=== PATIENT | female | born 1965 | race Caucasian/White ===

== ENCOUNTER → 2018-07-16 | Outpatient (CLI) | payer MEDICAID ==
--- NOTE | 2018-07-16 12:42 | Diagnostic Imaging Report ---
CLINICAL INDICATION: Patient fell out of bed last night. Patient has low back pain. EXAM: X-ray of the lumbar spine, three views. COMPARISON: None. FINDINGS: There is mild concave deformity of the upper endplate of the L2 vertebra with no cortical disruption seen. This appearance may be chronic. There is likely physiological wedging of the L1 vertebra. There is mildly hypertrophic spurs involving the thoracolumbar spine region. Intervertebral disc heights well maintained. Sacroiliac joints are unremarkable. Surgical clips are seen overlying the right upper quadrant which could be related to cholecystectomy changes. There is tubing seen overlying the abdomen area which may represent shunt tubing. IMPRESSION: There is a mild concave deformity of the upper endplate of the L2 vertebra, with no cortical disruption seen, which may be chronic given its appearance. If there is continued concern for lumbar spine fracture, CT scan would better evaluate. Dictated by: Dictated on workstation # [id number]
== END ==
LOC: RAD FS 12:21
PROVIDERS: ATTEND Nurse Practitioner Family
DX: M43.8X6 Other specified deforming dorsopathies, lumbar region (principal); W06.XXXA Fall from bed, initial encounter
CPT/HCPCS: 72100

== ENCOUNTER → 2018-12-02 | Outpatient (CLI) | payer MEDICAID ==
[~2018-12-02] MED LIST: GADOBUTROL 7.5 MMOL/7.5 ML (GADAVIST) VIAL IV ONE
[2018-12-02 08:23] LABS: BUN/CREATININE RATIO 12; CREATININE SERUM 0.75 MG/DL (0.60-1.30); GFR ESTIMATED > 60
--- NOTE | 2018-12-02 09:45 | Diagnostic Imaging Report ---
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 Screening for MRI. EXAM: X-ray of the skull, Stevens and lateral views of the orbits. COMPARISON: None. FINDINGS AND IMPRESSION: 1. There is no evidence of a radiodense foreign object on this exam. 2. There is dental amalgam and crowns. There are two ventricular shunts overlying the head. A jv hole metallic cranioplasty plate is seen overlying the right frontal region. 3. There is mild tortuosity of the nasal septum. The visualized paranasal sinuses are grossly unremarkable. 4. The results of this report were discussed with the cardiac technologist at the time of this exam. Dictated by: Dictated on workstation # [id number]
--- NOTE | 2018-12-02 13:12 | Diagnostic Imaging Report ---
EXAM: MRI BRAIN IAC W/OW CONTRAST INDICATION: Right-sided hearing loss. Multiple prior "brain surgeries." COMPARISON: None. FINDINGS: Right frontal FOWL BLOOD TESTER shunt tip crosses the midline and terminates in the region of the left basal ganglia. Left parietal FOWL BLOOD TESTER shunt tip terminates in the region of the atrium of the left lateral ventricle. The ventricles are slitlike in morphology. There is an abandoned shunt tract in the right parietal lobe. Bilateral craniotomies. There is subacute subdural hemorrhage overlying both cerebral convexities, left greater than right. These measure up to 0.5 cm in thickness overlying the left parietal lobe and 0.4 cm in thickness overlying the right posterior frontal lobe. There is diffuse thick pachymeningeal enhancement without a focal nodular or masslike focus. Moderate nonspecific T2 hyperintensities about the periventricular white matter. No other abnormal intracranial signal or enhancement. No restricted water diffusion. There is some hemosiderin deposition associated with the subdural hemorrhages. There is mild sagging of the brainstem and cerebellar tonsils. There is otherwise normal morphology at the major midline structures, sella, posterior fossa. Dedicated sequences to the level of the internal auditory canals demonstrate no normal morphology with no suspicious mass or enhancement. There is minimal mucosal thickening in the left frontal, ethmoid and maxillary sinus. Mastoids are clear. Normal bone marrow signal. IMPRESSION: 1. Constellation of findings, including those indicating CSF hypotension, are likely due to over shunting. There are two ventriculoperitoneal shunts in place as above. 2. Bilateral subdural hemorrhages appear subacute and may also be due to over shunting. Findings discussed with Dr. Emiliano Swanson at 01:03 p.m. on 12/02/2018. Dictated by: Dictated on workstation # [id number]
== END ==
LOC: RAD 07:50
PROVIDERS: ATTEND Otolaryngology Otolaryngology/Facial Plastic Surgery
DX: H91.8X1 Other specified hearing loss, right ear (principal); I62.00 Nontraumatic subdural hemorrhage, unspecified; J34.89 Other specified disorders of nose and nasal sinuses; Z98.890 Other specified postprocedural states; Z98.2 Presence of cerebrospinal fluid drainage device
CPT/HCPCS: 36415; 70553; 82565; 84520

== ENCOUNTER 2019-02-02 14:34 | Emergency (ER) | payer MEDICAID ==
[~2019-02-02] VITALS: Ht 175 cm; Wt 71.8 kg
--- NOTE | 2019-02-02 16:02 | Diagnostic Imaging Report ---
INDICATION: Fall with injury to head and face. TECHNIQUE: Multiple contiguous axial images were obtained through the head and facial bones without the use of intravenous contrast. Auto Exposure Controls were utilized during the CT exam to meet ALARA standards for radiation dose reduction. COMPARISON: There are no prior CTs for comparison. CT brain findings: There were no extra-axial fluid collections. No acute intracranial hemorrhage. No mass effect or midline shift. There are bilateral shunt catheters in place, one has its tip in the left lateral ventricle, the other crosses the midline with tip passing through the frontal horns. The ventricles are nondilated. There are some chronic changes in the deep white matter with no definite acute process. Calvarial windows demonstrate evidence of previous craniotomies on both sides as well as extensive dural calcifications which are chronic. There is no acute fracture. CT maxillofacial findings: No definite acute fracture or acute bony abnormality is seen. There is a fluid level in the left maxillary sinus. IMPRESSION: 1. CT brain shows chronic changes as described above with no acute intracranial abnormality or calvarial fracture. 2. CT maxillofacial demonstrates no acute fracture or acute bony abnormality. There is a fluid level noted in the left maxillary sinus. Dictated by: Dictated on workstation # [id number]
--- NOTE | 2019-02-02 16:12 | ED Fall/Injury ---
General Chief Complaint: Trauma-Non Activation Stated Complaint: FALL; HEAD INJ Source: patient, family History of Present Illness Date Seen by Provider: Feb 02, 2019 Time Seen by Provider: 16:41 Initial Comments 53-year-old female presenting with complaints of right-sided head and jaw pain after having a fall yesterday. She had gotten tripped up by the dog's leash and fall onto her knees. She denies hitting her head or losing consciousness but does relate that she had taken quite a spill and gotten miesha around. She denies having any vomiting but stated that she had some nausea earlier. She denies any change in her vision. She has no drainage from around any of her teeth. She has not been running any fever or chills. She had tried Tylenol with little to no relief of her symptoms. Allergies and Home Medications Allergies Coded Allergies: No Known Drug Allergies (Unverified , 12/02/18) Home Medications Hydrocodone Bit/Acetaminophen 1 Tab Tab, 1 EACH PO Q6H PRN for PAIN-SEVERE (8- 10) Prescribed by: DIANA ESPINOSA on 02/02/19 8640 Patient Home Medication List Home Medication List Reviewed: Yes Review of Systems Review of Systems Constitutional: No chills, No fever Eyes: Denies Vision Changes Ears, Nose, Mouth, Throat: see HPI; denies ear discharge, denies nose discharge, denies epistaxis, denies loose teeth Respiratory: no symptoms reported Cardiovascular: no symptoms reported Gastrointestinal: nausea; No vomiting Genitourinary: no symptoms reported Musculoskeletal: joint pain (bilateral knee pain since the fall) Skin: no symptoms reported Psychiatric/Neurological: Headache Past Crqruey-Ybihqk-Lzpdui Hx Past Med/Social Hx: Reviewed Nursing Past Med/Soc Hx Patient Social History Recent Foreign Travel: No Physical Exam Vital Signs Vital Signs - First Documented 02/02/19 14:50 Temp 36.5 Pulse 60 Resp 16 B/P (MAP) 109/85 (93) Pulse Ox 98 Capillary Refill : Height, Weight, BMI Height: '" Weight: lbs. oz. kg; BMI Method: General Appearance: WD/WN, no apparent distress HEENT: PERRL/EOMI, pharynx normal Neck: supple, normal inspection Cardiovascular: normal peripheral pulses, regular rate, rhythm Respiratory: chest non-tender, lungs clear, normal breath sounds Neurologic/Psychiatric: alert, normal mood/affect, oriented x 3 Skin: normal color, warm/dry [place] Coma Score Best Eye Response: (4) Open Spontaneously Best Verbal Response: (5) Oriented Best Motor Response: (6) Obeys Commands Giuseppe Total: 15 Progress/Results/Core Measures Results/Orders My Orders Orders - DIANA ESPINOSA MD Ct Head/Maxillofacial Wo (02/02/19 15:24) Vital Signs/I&O 02/02/19 02/02/19 14:50 17:25 Temp 36.5 Pulse 60 54 Resp 16 16 B/P (MAP) 109/85 (93) 118/73 Pulse Ox 98 97 Progress Progress Note : Progress Note CT of her head and face does not demonstrate any acute intracranial hemorrhage or fractures. The jaw and mandible appear to be intact. Counseled patient and family about the results and advised that she could still follow up with dentist in case there was some issue with her teeth still. Will prescribe a few hydrocodone for severe pain and counseled to follow up with her primary and dentist for continued concerns. Diagnostic Imaging Diagonstic Imaging: CT Plain Films/CT/US/NM/MRI: head (and face) Comments NAME: SUSHMA DELAROSA [facility] REC#: [id number] PT STATUS: REG ER : 1965 PHYSICIAN: DIANA ESPINOSA MD ADMIT DATE: 02/02/19/ER FS Draft POSDate of Exam:02/02/19 CT HEAD/MAXILLOFACIAL WO INDICATION: Fall with injury to head and face. TECHNIQUE: Multiple contiguous axial images were obtained through the head and facial bones without the use of intravenous contrast. Auto Exposure Controls were utilized during the CT exam to meet ALARA standards for radiation dose reduction. COMPARISON: There are no prior CTs for comparison. CT brain findings: There were no extra-axial fluid collections. No acute intracranial hemorrhage. No mass effect or midline shift. There are bilateral shunt catheters in place, one has its tip in the left lateral ventricle, the other crosses the midline with tip passing through the frontal horns. The ventricles are nondilated. There are some chronic changes in the deep white matter with no definite acute process. Calvarial windows demonstrate evidence of previous craniotomies on both sides as well as extensive dural calcifications which are chronic. There is no acute fracture. CT maxillofacial findings: No definite acute fracture or acute bony abnormality is seen. There is a fluid level in the left maxillary sinus. IMPRESSION: 1. CT brain shows chronic changes as described above with no acute intracranial abnormality or calvarial fracture. 2. CT maxillofacial demonstrates no acute fracture or acute bony abnormality. There is a fluid level noted in the left maxillary sinus. Dictated on workstation # [id number] Dict: 02/02/19 1556 Trans: 02/02/19 1602 [id number] Interpreted by: YUDELKA GOODSON MD Electronically signed by: Departure Impression Primary Impression: Jaw pain Additional Impressions: Right-sided headache Fall at home Qualified Codes: W19.XXXA - Unspecified fall, initial encounter; Y92.009 - Unspecified place in unspecified non-institutional (private) residence as the place of occurrence of the external cause Disposition: 01 HOME, SELF-CARE Condition: Stable Departure-Patient Inst. Decision time for Depature: 17:16 Referrals: RYANNE ADAMS MD (PCP/Family) Primary Care Physician Patient Instructions: Tension Headache (DC) Add. Discharge Instructions: Try alternating ice and heat to your face to help with the pain. Check back with your dentist to see if there is any dental source of the pain. Try the hydrocodone for severe pain and check with your regular provider if the pain continues or is not improving within the next few days All discharge instructions reviewed with patient and/or family. Voiced understanding. Scripts Hydrocodone Bit/Acetaminophen (Hydrocodone/Acetaminophen 5/325mg Tablet) 1 Tab Tab 1 EACH PO Q6H PRN for PAIN-SEVERE (8-10) MDD 10 for 3 Days, #12 TAB 0 Refills Prov: DIANA ESPINOSA MD 02/02/19 DIANA ESPINOSA MD Feb 02, 2019 16:12 POS
[2019-02-02] MEDS ORDERED: ACHD5005 PO (17:17)
[2019-02-02 17:25] VITALS: BP 118/73
== END 2019-02-02 17:30 | disposition home or self-care (01) ==
LOC: EDUNIT# 14:34 → ER FS 14:35
DX: R68.84 Jaw pain (principal); R51 Headache; R40.2142 Coma scale, eyes open, spontaneous, at arrival to emergency department; R40.2252 Coma scale, best verbal response, oriented, at arrival to emergency department; R40.2362 Coma scale, best motor response, obeys commands, at arrival to emergency department; W01.0XXA Fall on same level from slipping, tripping and stumbling without subsequent striking against object, initial encounter
CPT/HCPCS: 70450; 70486

== ENCOUNTER 2019-03-12 16:33 | Emergency (ER) | payer MEDICAID ==
[~2019-03-12 16:33] MED LIST changes: +ACHD5005 PO; -GADOBUTROL 7.5 MMOL/7.5 ML (GADAVIST) VIAL IV ONE
[2019-03-12] MEDS ORDERED: diphenhydrAMINE 50 MG/ML INJ (BENADRYL) IVP ONE (17:15)
[2019-03-12] MEDS ORDERED: NS IV 1000 ML 1,000 ML IV SCH (17:15)
[2019-03-12] MEDS ORDERED: PROMETHAZINE INJ 25 MG/ML (PHENERGAN) AMP IVP ONE (17:15)
--- NOTE | 2019-03-12 17:20 | ED GI ---
General Stated Complaint: VOMITING & DIARRHEA Source of Information: Patient, Family Exam Limitations: No Limitations (ARIADNE GUO MD) History of Present Illness Date Seen by Provider: Mar 12, 2019 Time Seen by Provider: 17:15 Initial Comments This 53-year-old white female presents with nausea vomiting and diarrhea that began earlier today. The patient denies hematemesis or black or tarry stools. Patient has diffuse abdominal pain from her repeated vomiting. Patient denies associated fever or chills. She denies other family members with a similar illness. She denies change in her medications. The patient took Zofran without improvement in her nausea and vomiting. (ARIADNE GUO MD) Allergies and Home Medications Allergies Coded Allergies: No Known Drug Allergies (Unverified , 12/02/18) Home Medications Hydrocodone Bit/Acetaminophen 1 Tab Tab, 1 EACH PO Q6H PRN for PAIN-SEVERE (8- 10) Prescribed by: DIANA ESPINOSA on 02/02/19 1717 Metoclopramide HCl 5 Mg Tablet, 5 MG PO Q6H PRN for NAUSEA/VOMITING Prescribed by: DIANA ESPINOSA on 03/12/19 1936 Patient Home Medication List Home Medication List Reviewed: Yes (ARIADNE GUO MD) Home Medication List Reviewed: Yes (DIANA ESPINOSA MD) Review of Systems Review of Systems Constitutional: No chills, No fever EENTM: No Symptoms Reported Respiratory: Denies Cough Cardiovascular: Denies Chest Pain Gastrointestinal: See HPI, Abdominal Pain (after repeated vomiting), Diarrhea, Nausea; Denies Rectal Bleeding; Vomiting Genitourinary: No Symptoms Reported Musculoskeletal: no symptoms reported; No back pain Skin: no symptoms reported; No rash Psychiatric/Neurological: No Symptoms Reported Endocrine: No Symptoms Reported Hematologic/Lymphatic: No Symptoms Reported (ARIADNE GUO MD) Past Orzlbsb-Aswzrg-Irtyea Hx Past Med/Social Hx: Reviewed Nursing Past Med/Soc Hx (ARIADNE GUO MD) Patient Social History Type Used: Cigarettes 2nd Hand Smoke Exposure: Yes Recent Foreign Travel: No Recent Hopitalizations: No (ARIADNE GUO MD) Seasonal Allergies Seasonal Allergies: No (ARIADNE GUO MD) Past Medical History Surgeries: Yes (brain shunt) Appendectomy, Gallbladder, Hysterectomy Respiratory: No Cardiac: No Neurological: No Genitourinary: No Gastrointestinal: No Musculoskeletal: No Endocrine: No HEENT: No Cancer: No Psychosocial: No Blood Disorders: No (ARIADNE GUO MD) Physical Exam Vital Signs Vital Signs - First Documented 03/12/19 16:47 Temp 36.3 Pulse 79 Resp 18 B/P (MAP) 102/71 (81) Pulse Ox 96 O2 Delivery Room Air (DIANA ESPINOSA MD) Vital Signs Capillary Refill : (ARIADNE GUO MD) Height/Weight/BMI Height: '" Weight: lbs. oz. kg; 23.00 BMI Method: General Appearance: WD/WN, moderate distress HEENT: normal ENT inspection Neck: normal inspection Respiratory: lungs clear Cardiovascular: regular rate, rhythm Gastrointestinal: abnormal bowel sounds (hypoactive), tenderness (mild diffuse tenderness) Extremities: normal range of motion, non-tender, normal inspection Back: normal inspection Neurologic/Psychiatric: no motor/sensory deficits, alert, normal mood/affect Skin: normal color, warm/dry (ARIADNE GUO MD) Progress/Results/Core Measures Results/Orders Lab Results Laboratory Tests Test 03/12/19 17:40 Range/Units White Blood Count 23.5 H 4.3-11.0 10^3/uL Red Blood Count 4.60 4.35-5.85 10^6/uL Hemoglobin 14.8 11.5-16.0 G/DL Hematocrit 43 35-52 % Mean Corpuscular Volume 94 80-99 FL Mean Corpuscular Hemoglobin 32 25-34 PG Mean Corpuscular Hemoglobin Concent 34 32-36 G/DL Red Cell Distribution Width 12.6 10.0-14.5 % Platelet Count 391 130-400 10^3/uL Mean Platelet Volume 9.5 7.4-10.4 FL Neutrophils (%) (Auto) 86 H 42-75 % Lymphocytes (%) (Auto) 8 L 12-44 % Monocytes (%) (Auto) 4 0-12 % Eosinophils (%) (Auto) 1 0-10 % Basophils (%) (Auto) 0 0-10 % Neutrophils # (Auto) 20.2 H 1.8-7.8 X 10^3 Lymphocytes # (Auto) 2.0 1.0-4.0 X 10^3 Monocytes # (Auto) 1.0 0.0-1.0 X 10^3 Eosinophils # (Auto) 0.2 0.0-0.3 10^3/uL Basophils # (Auto) 0.1 0.0-0.1 10^3/uL Neutrophils % (Manual) 79 % Lymphocytes % (Manual) 13 % Monocytes % (Manual) 2 % Eosinophils % (Manual) 0 % Basophils % (Manual) 0 % Band Neutrophils 6 % Blood Morphology Comment NORMAL Sodium Level 139 135-145 MMOL/L Potassium Level 3.7 3.6-5.0 MMOL/L Chloride Level 102 98-107 MMOL/L Carbon Dioxide Level 21 21-32 MMOL/L Anion Gap 16 H 5-14 MMOL/L Blood Urea Nitrogen 11 7-18 MG/DL Creatinine 0.75 0.60-1.30 MG/DL Estimat Glomerular Filtration Rate > 60 BUN/Creatinine Ratio 15 Glucose Level 130 H 70-105 MG/DL Calcium Level 9.6 8.5-10.1 MG/DL Corrected Calcium 8.5-10.1 MG/DL Total Bilirubin 0.5 0.1-1.0 MG/DL Aspartate Amino Transf (AST/SGOT) 25 5-34 U/L Alanine Aminotransferase (ALT/SGPT) 27 0-55 U/L Alkaline Phosphatase 175 H 40-136 U/L Total Protein 8.2 6.4-8.2 GM/DL Albumin 4.9 H 3.2-4.5 GM/DL Lipase 25 8-78 U/L (DIANA ESPINOSA MD) My Orders Orders - DIANA ESPINOSA MD Iohexol Injection (Omnipaque 350 Mg/Ml 1 (03/12/19 18:30) Received Contrast (Hold Metformin- Contr (03/12/19 18:30) Sodium Chloride Flush (Catheter Flush Sy (03/12/19 18:30) Ns (Ivpb) (Sodium Chloride 0.9% Ivpb Bag (03/12/19 18:30) Ct Abdomen/Pelvis W (03/12/19 18:26) Rx-Metoclopramide Tab (Rx-Reglan Tab) (03/12/19 19:30) (DIANA ESPINOSA MD) Medications Given in ED Current Medications Medications Dose Ordered Sig/Suhas Route Start Time Stop Time Status Last Admin Dose Admin Diphenhydramine HCl 25 mg ONCE ONCE IVP 03/12/19 17:15 03/12/19 17:16 DC 03/12/19 17:50 25 MG Iohexol 100 ml ONCE ONCE IV 03/12/19 18:30 03/12/19 18:31 DC 03/12/19 18:45 100 ML Promethazine HCl 25 mg ONCE ONCE IVP 03/12/19 17:15 03/12/19 17:16 DC 03/12/19 17:50 25 MG Sodium Chloride 10 ml NEEDED PRN IV 03/12/19 18:30 03/12/19 19:47 DC 03/12/19 18:45 10 ML Sodium Chloride 100 ml ONCE ONCE IV 03/12/19 18:30 03/12/19 18:31 DC 03/12/19 18:45 100 ML (DIANA ESPINOSA MD) Vital Signs/I&O 03/12/19 03/12/19 16:47 19:46 Temp 36.3 Pulse 79 87 Resp 18 18 B/P (MAP) 102/71 (81) 159/87 Pulse Ox 96 99 O2 Delivery Room Air Room Air (DIANA ESPINOSA MD) Progress Progress Note : Time: 17:[address] Espinosa accepted the patient at change of shifts. (ARIADNE GUO MD) Progress Note #1: Time: 18:32 Progress Note I assumed care of the patient from Dr. Guo at shift change. her WBC was elevated with a left shift in her differential. Chemistry did not show any acute significant abnormality to account for her symptoms. On my repeat exam of the patient she was feeling better and had no further vomiting after treatment in the ED. Abdominal cramping improved with treatment as well. She did stop abdominal pain that was diffuse with palpation. Will perform a CT scan with IV contrast to evaluate for possible developing bowel obstruction or colitis or diverticulitis that might be contributing to her elevated white count and acute onset of symptoms. Progress Note #2: Time: 19:[address] scan shows findings of inflammation of the stomach and first part of the small intestine and duodenum. These findings would be consistent with some gastroenteritis. There was no free fluid or signs of diverticulitis or colitis. Patient was continuing to feel better and was tolerating by mouth fluids here in the ED. Counseled that provided she was tolerating oral fluids and not having worsening symptoms that I would discharge her to home with some nausea medicine and treat her for viral gastroenteritis with liquid diet for at least 24 hours and then slowly advance diet as she tolerates it. Counseled to check back with the clinic or return for worsening symptoms. Initially a lactic acid had been ordered and a urinalysis but as her CT scan was not showing any indication of ischemic bowel and she is not having any UTI symptoms those tests were canceled. Since she was not having improvement with Zofran prior to arriving in the ED Will discharge with a few Reglan tablets. Progress Note #3: Progress Note tolerating po in ED without worsening symptoms. discharge as planned above (DIANA ESPINOSA MD) Diagnostic Imaging Diagonstic Imaging: CT Plain Films/CT/US/NM/MRI: abdomen, pelvis Comments NAME: SUSHMA DELAROSA [facility] REC#: [id number] PT STATUS: REG ER : 1965 PHYSICIAN: DIANA ESPINOSA MD ADMIT DATE: 03/12/19/ER FS Draft Date of Exam:03/12/19 CT ABDOMEN/PELVIS W CT ABDOMEN/PELVIS W PROCEDURE: CT abdomen and pelvis with contrast. TECHNIQUE: Multiple contiguous axial images were obtained through the abdomen and pelvis after administration of intravenous contrast. INDICATION: Acute onset emesis and diarrhea with leukocytosis. COMPARISON: None. FINDINGS: No focal hepatic or splenic lesion is identified. Note is made of peritoneal catheter extending from the visualized left anterior chest wall. There appears to be mural thickening in the stomach and duodenum, which may reflect gastroenteritis. No splenic or adrenal gland abnormality is identified. There is excretion of contrast from both kidneys without other evidence of renal abnormality. No free fluid is seen within the abdomen or pelvis. Partially opacified urinary bladder is unremarkable. IMPRESSION: Mural thickening at the level of stomach and duodenum possibly reflecting gastroenteritis. Otherwise, no acute abnormality is seen within the abdomen or pelvis. Dictated on workstation # [id number] Dict: 03/12/19 1856 Trans: 03/12/19 [id number] Interpreted by: RIC RAMON MD Electronically signed by: Reviewed: Reviewed by Me (and radiologist report) (DIANA ESPINOSA MD) Departure Impression Primary Impression: Nausea vomiting and diarrhea Additional Impression: Abdominal cramping Disposition: 01 HOME, SELF-CARE Condition: Stable Departure-Patient Inst. Decision time for Depature: 19:35 (DIANA ESPINOSA MD) Referrals: RYANNE ADAMS MD (PCP/Family) Primary Care Physician Patient Instructions: Diarrhea in Adolescents and Adults, Full Liquid Diet, Nausea and Vomiting, Adult (DC), Viral Gastroenteritis, Adult (DC) Add. Discharge Instructions: Follow a liquid diet for the next 24 hours. Then you may slowly advance your diet as you tolerate it Use the nausea medicine to help keep your stomach settled so that you can keep sipping on fluids and stay hydrated. Check with the clinic for continued problems/concerns or return/seek medical care for worsening symptoms or if not improving in next few days Scripts Metoclopramide HCl (Metoclopramide HCl) 5 Mg Tablet 5 MG PO Q6H PRN for NAUSEA/VOMITING for 3 Days, #12 TAB 0 Refills Prov: DIANA ESPINOSA MD 03/12/19 ARIADNE GUO MD Mar 12, 2019 17:20 DIANA ESPINOSA MD Mar 12, 2019 18:46
[2019-03-12 17:49] LABS: BASOPHILS # (AUTO) 0.1 10^3/uL (0.0-0.1); BASOPHILS % (AUTO) 0 % (0-10); EOSINOPHILS # (AUTO) 0.2 10^3/uL (0.0-0.3); EOSINOPHILS % (AUTO) 1 % (0-10); HEMATOCRIT 43 % (35-52); HEMOGLOBIN 14.8 G/DL (11.5-16.0); LYMPHOCYTES % (AUTO) 8 % (12-44); MEAN CORPUSCULAR HEMOGLOBIN 32 PG (25-34); MEAN CORPUSCULAR HGB CONC 34 G/DL (32-36); MEAN CORPUSCULAR VOLUME 94 FL (80-99); MEAN PLATELET VOLUME 9.5 FL (7.4-10.4); MONOCYTES % (AUTO) 4 % (0-12); NEUTROPHILS # (AUTO) 20.2 X 10^3 (1.8-7.8); NEUTROPHILS % (AUTO) 86 % (42-75); PLATELET COUNT 391 10^3/uL (130-400); RED CELL DISTRIBUTION WIDTH 12.6 % (10.0-14.5); WHITE BLOOD COUNT 23.5 10^3/uL (4.3-11.0)
[2019-03-12 18:05] LABS: BAND NEUTROPHILS 6 %; BASOPHILS % (MANUAL) 0 %; EOSINOPHILS % (MANUAL) 0 %; LYMPHOCYTES % (MANUAL) 13 %; MONOCYTES % (MANUAL) 2 %; NEUTROPHILS % (MANUAL) 79 %; RBC MORPH NORMAL
[2019-03-12 18:06] LABS: ALANINE AMINOTRANSFERASE 27 U/L (0-55); ALBUMIN 4.9 GM/DL (3.2-4.5); ALKALINE PHOSPHATASE 175 U/L (40-136); BILIRUBIN,TOTAL 0.5 MG/DL (0.1-1.0); BUN/CREATININE RATIO 15; CALCIUM 9.6 MG/DL (8.5-10.1); CARBON DIOXIDE 21 MMOL/L (21-32); CHLORIDE 102 MMOL/L (98-107); CREATININE SERUM 0.75 MG/DL (0.60-1.30); GFR ESTIMATED > 60; GLUCOSE 130 MG/DL (70-105); LIPASE 25 U/L (8-78); POTASSIUM 3.7 MMOL/L (3.6-5.0); SODIUM 139 MMOL/L (135-145); TOTAL PROTEIN 8.2 GM/DL (6.4-8.2)
[2019-03-12] MEDS ORDERED: NS 100 ML (IVPB) BAG IV ONE (18:30)
[2019-03-12] MEDS ORDERED: IOHEXOL 350 MG/ML 100 ML (OMNIPAQUE 350) VIAL IV ONE (18:30)
[2019-03-12] MEDS ORDERED: HOLD METFORMIN - RECEIVED CONTRAST 20 ML VIAL IV SCH (18:30)
[2019-03-12] MEDS ORDERED: CATHETER FLUSH 10 ML SYR IV PRN (18:30)
[2019-03-12] MEDS ORDERED: NS IV 1000 ML 1,000 ML IV STA (19:02)
--- NOTE | 2019-03-12 19:02 | Diagnostic Imaging Report ---
CT ABDOMEN/PELVIS W PROCEDURE: CT abdomen and pelvis with contrast. TECHNIQUE: Multiple contiguous axial images were obtained through the abdomen and pelvis after administration of intravenous contrast. INDICATION: Acute onset emesis and diarrhea with leukocytosis. COMPARISON: None. FINDINGS: No focal hepatic or splenic lesion is identified. Note is made of peritoneal catheter extending from the visualized left anterior chest wall. There appears to be mural thickening in the stomach and duodenum, which may reflect gastroenteritis. No splenic or adrenal gland abnormality is identified. There is excretion of contrast from both kidneys without other evidence of renal abnormality. No free fluid is seen within the abdomen or pelvis. Partially opacified urinary bladder is unremarkable. IMPRESSION: Mural thickening at the level of stomach and duodenum possibly reflecting gastroenteritis. Otherwise, no acute abnormality is seen within the abdomen or pelvis. Dictated by: Dictated on workstation # [id number]
[2019-03-12] MEDS ORDERED: RX-METOCLOPRAMIDE 5 MG (REGLAN) TAB PPK#8 PO PRN (19:30)
[2019-03-12] MEDS ORDERED: METO5TAB2 PO (19:36)
[2019-03-12 19:46] VITALS: BP 159/87
== END 2019-03-12 19:46 | disposition home or self-care (01) ==
LOC: EDUNIT# 16:33 → ER FS 16:35
DX: R11.2 Nausea with vomiting, unspecified (principal); R19.7 Diarrhea, unspecified; R10.9 Unspecified abdominal pain; Z77.22 Contact with and (suspected) exposure to environmental tobacco smoke (acute) (chronic); Z90.49 Acquired absence of other specified parts of digestive tract; Z90.710 Acquired absence of both cervix and uterus
CPT/HCPCS: 36415; 74177; 80053; 83690; 85007; 85027; 96374; 96375

== ENCOUNTER 2019-08-05 17:02 | Emergency (ER) | payer MEDICAID ==
[~2019-08-05] VITALS: Ht 172.7 cm; Wt 66.1 kg
[~2019-08-05 17:02] MED LIST changes: +METO5TAB2 PO
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
[2019-08-05] MEDS ORDERED: HYDROcodone/APAP 5 MG/325 MG (LORTAB) TAB PO ONE (17:15)
[2019-08-05] MEDS: IBUPROFEN 600 MG (MOTRIN) TAB PO ONE ×2 (18:04→18:05)
--- NOTE | 2019-08-05 18:05 | NUR ---
Pt refuses Ibuprofen that was scanned to administer with Hydrocodone. Pt states, "I am on a med that you can not use Ibufrofen family with it." Pt states she is on Celebrex then denies knowing that it is for pain/arthritis.
[2019-08-05 19:31] VITALS: BP 136/93
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
--- OUTSIDE RECORDS SUMMARY | 2019-08-05 20:12 | XMS REPORT | Continuity of Care Document ---
Author Organization Unknown Address Unknown Phone Unavailable Allergies Active Description Code Type Severity Reaction Onset Reported/Identified Relationship to Patient Clinical Status Yes No Known Drug Allergies [id number] Drug Allergy Unknown N/A 12/02/2018 Medications There is no data. 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, 07/16/2018 DALTON, [place] SANITARIAN Ot W06.XX XA FALL FROM BED, INITIAL ENCOUNTER 07/18/2018 DALTON [place] SANITARIAN Ot M43.8X 6 OTHER SPECIFIED DEFORMING DORSOPATHIES, 07/18/2018 DALTON, [place] SANITARIAN Ot W06.XX XA FALL FROM BED, INITIAL ENCOUNTER 08/01/2018 DALTON, [place] SANITARIAN Ot M43.8X 6 OTHER SPECIFIED DEFORMING DORSOPATHIES, 08/01/2018 DALTON, [place] SANITARIAN Ot W06.XX XA FALL FROM BED, INITIAL ENCOUNTER 12/01/2018 DALTON, [place] SANITARIAN Ot M43.8X 6 OTHER SPECIFIED DEFORMING DORSOPATHIES, 12/01/2018 DALTON, [place] SANITARIAN Ot W06.XX XA FALL FROM BED, INITIAL ENCOUNTER 12/04/2018 MELINDA PAIGE MD Ot H91.8X1 OTHER SPECIFIED HEARING LOSS, RIGHT EAR 12/04/2018 MELINDA PAIGE MD Ot I62.00 NONTRAUMATIC SUBDURAL HEMORRHAGE, UNSPEC 12/04/2018 MELINDA PAIGE MD Ot J34.89 OTHER SPECIFIED DISORDERS OF NOSE AND NA 12/04/2018 MELINDA PAIGE MD Ot Z98 .2 PRESENCE OF CEREBROSPINAL FLUID DRAINAGE 12/04/2018 MELINDA PAIGE MD Ot Z98.890 OTHER SPECIFIED POSTPROCEDURAL STATES 03/12/2019 DIANA ESPINOSA MD Ot R10.9 UNSPECIFIED ABDOMINAL PAIN 03/12/2019 DIANA ESPINOSA MD Ot R11.2 NAUSEA WITH VOMITING, UNSPECIFIED 03/12/2019 ENDIANA GORDILLO MD, Ot R19.7 DIARRHEA, UNSPECIFIED 03/12/2019 DIANA ESPINOSA MD, Ot Z77.2 2 CNTCT W AND EXPSR TO ENVIRON TOBACCO SMO 03/12/2019 DIANA ESPINOSA MD, Ot Z90.4 9 ACQUIRED ABSENCE OF OTHER SPECIFIED PART 03/12/2019 DIANA ESPINOSA MD, Ot Z90.7 10 ACQUIRED ABSENCE OF BOTH CERVIX AND UTER 03/16/2019 DIANA ESPINOSA MD, Ot R10.9 UNSPECIFIED ABDOMINAL PAIN 03/16/2019 DIANA ESPINOSA MD, Ot R11.2 NAUSEA WITH VOMITING, UNSPECIFIED 03/16/2019 DIANA ESPINOSA MD, Ot R19.7 DIARRHEA, UNSPECIFIED 03/16/2019 DIANA ESPINOSA MD, Ot Z77.2 2 CNTCT W AND EXPSR TO ENVIRON TOBACCO SMO 03/16/2019 DIANA ESPINOSA MD, Ot Z90.4 9 ACQUIRED ABSENCE OF OTHER SPECIFIED PART 03/16/2019 DIANA ESPINOSA MD, Ot Z90.7 10 ACQUIRED ABSENCE OF BOTH CERVIX AND UTER Procedures There is no data. Results Test Result Range ANEMIA PANEL - 05/28/18 14:27 IRON, TOTAL 78 mcg/dL 45-160 FERRITIN 102 ng/mL 10-232 IRON BINDING CAPACITY 252 mcg/dL (calc) 250-450 % SATURATION 31 % (calc) 11-50 CBC - 05/28/18 14:27 WHITE BLOOD CELL COUNT 11.1 Thousand/uL 3.8-10.8 RED BLOOD CELL COUNT 4.54 Million/uL 3.8 0-5.10 HEMOGLOBIN 14.4 g/dL 11.7-15.5 HEMATOCRIT 42.6 % 35.0-45.0 MCV 93.8 fL 80.0-100.0 MCH 31.7 pg 27.0-33.0 MCHC 33.8 g/dL 32.0-36.0 RDW 12.6 % 11.0-15.0 PLATELET COUNT 333 Thousand/uL 140-400 MPV 10.0 fL 7.5-12.5 ABSOLUTE NEUTROPHILS 5683 cells/uL 1500- 7800 ABSOLUTE LYMPHOCYTES 4040 cells/uL 850-3 900 ABSOLUTE MONOCYTES 699 cells/uL 200-950 ABSOLUTE EOSINOPHILS 599 cells/uL 15-500 ABSOLUTE BASOPHILS 78 cells/uL 0-200 NEUTROPHILS 51.2 % NRG LYMPHOCYTES 36.4 % NRG MONOCYTES 6.3 % NRG EOSINOPHILS 5.4 % NRG BASOPHILS 0.7 % NRG VITAMIN B12/FOLATE, SERUM PANEL - 14:27 VITAMIN B12 384 pg/mL 200-1100 FOLATE, SERUM 8.4 ng/mL NRG LIPID PANEL - 07/10/18 08:00 CHOLESTEROL, TOTAL 259 mg/dL <200 HDL CHOLESTEROL 51 mg/dL >50 TRIGLYCERIDES 136 mg/dL <150 LDL-CHOLESTEROL 181 mg/dL (calc) NRG CHOL/HDLC RATIO 5.1 (calc) <5.0 NON HDL CHOLESTEROL 208 mg/dL (calc) <13 0 CMP - 07/10/18 08:00 GLUCOSE 89 mg/dL 65-99 UREA NITROGEN (BUN) 15 mg/dL 7-25 CREATININE 0.86 mg/dL 0.50-1.05 eGFR NON-AFR. IRANIAN 78 mL/min/1.73m2 > OR = 60 eGFR 91 mL/min/1.73m2 > OR = 60 BUN/CREATININE RATIO NOT APPLICABLE (calc) 6-22 SODIUM 143 mmol/L 135-146 POTASSIUM 4.6 mmol/L 3.5-5.3 CHLORIDE 108 mmol/L 98-110 CARBON DIOXIDE 29 mmol/L 20-32 CALCIUM 9.4 mg/dL 8.6-10.4 PROTEIN, TOTAL 7.1 g/dL 6.1-8.1 ALBUMIN 4.2 g/dL 3.6-5.1 GLOBULIN 2.9 g/dL (calc) 1.9-3.7 ALBUMIN/GLOBULIN RATIO 1.4 (calc) 1.0-2. 5 BILIRUBIN, TOTAL 0.3 mg/dL 0.2-1.2 ALKALINE PHOSPHATASE 106 U/L 33-130 AST 10 U/L 10-35 ALT 10 U/L 6-29 VITAMIN B12 - 07/10/18 08:00 VITAMIN B12 384 pg/mL 200-1100 CULTURE, URINE - 08/13/18 14:21 CULTURE, URINE, ROUTINE SEE NOTE NRG TSH - 09/23/18 09:51 TSH 2.99 mIU/L NR [id number] - 12/02/18 08:00 Serum or plasma urea nitrogen measurement (mass/volume ) 9 mg/dL 7-18 Serum or plasma creatinine measurement (mass/volume) 0.75 mg/dL 0.60-1.30 Serum or plasma urea nitrogen/creatinine mass ratio 12 NRG Serum or plasma creatinine measurement w ith calculation of estimated glomerular filtration rate > NRG Complete blood count (CBC) with automate d white blood cell (WBC) differential - 03/12/19 17:40 Blood leukocytes automated count (number/volume) 23.5 10*3/uL 4.3-11.0 Blood erythrocytes automated count (number/volume) 4.60 10*6/uL 4.35-5.85 Venous blood hemoglobin measurement (mass/volume) 14.8 g/dL 11.5-16.0 Blood hematocrit (volume fraction) 43 % 35-52 Automated erythrocyte mean corpuscular volume 94 [ foz_us] 80-99 Automated erythrocyte mean corpuscular h emoglobin (mass per erythrocyte) 32 pg 25-34 Automated erythrocyte mean corpuscular h emoglobin concentration measurement (mass/volume) 34 g/dL 32-36 Automated erythrocyte distribution width ratio 12. 6 % 10.0- 14.5 Automated blood platelet count (count/volume) 391 10*3/uL 130-400 Automated blood platelet mean volume measurement 9.5 [foz_us] 7.4-10.4 Automated blood neutrophils/100 leukocytes 86 % 42-75 Automated blood lymphocytes/100 leukocytes 8 % 12-44 Blood monocytes/100 leukocytes 4 % 0-12 Automated blood eosinophils/100 leukocytes 1 % 0-10 Automated blood basophils/100 leukocytes 0 % 0-10 Blood neutrophils automated count (number/volume) 20.2 10*3 1.8-7.8 Blood lymphocytes automated count (number/volume) 2.0 10*3 1.0-4.0 Blood monocytes automated count (number/volume) 1. 0 10*3 0.0-1.0 Automated eosinophil count 0.2 10*3/uL 0 .0-0.3 Automated blood basophil count (count/volume) 0.1 10*3/uL 0.0-0.1 Manual absolute plasma cell count - 02/16 09/03 17:40 Blood monocytes/100 leukocytes 2 % NRG Manual blood segmented neutrophils/100 leukocytes 79 % NRG Blood band neutrophils/100 leukocytes 6 % NRG Manual blood lymphocytes/100 leukocytes 13 % NRG Manual eosinophils/100 leukocytes in nose 0 % NRG Manual blood basophils/100 leukocytes 0 % NRG Blood erythrocyte morphology finding identification NORMAL NRG Comprehensive metabolic panel - 03/12/19 17:40 Serum or plasma sodium measurement (moles/volume) 139 mmol/L 135-145 Serum or plasma potassium measurement (moles/volume) 3.7 mmol/L 3.6-5.0 Serum or plasma chloride measurement (moles/volume) 102 mmol/L 98-107 Carbon dioxide 21 mmol/L 21-32 Serum or plasma anion gap determination (moles/volume) 16 mmol/L 5-14 Serum or plasma urea nitrogen measurement (mass/volume ) 11 mg/dL 7-18 Serum or plasma creatinine measurement (mass/volume) 0.75 mg/dL 0.60-1.30 Serum or plasma urea nitrogen/creatinine mass ratio 15 NRG Serum or plasma creatinine measurement w ith calculation of estimated glomerular filtration rate > NRG Serum or plasma glucose measurement (mass/volume) 130 mg/dL 70-105 Serum or plasma calcium measurement (mass/volume) 9.6 mg/dL 8.5-10.1 Serum or plasma total bilirubin measurement (mass/volu me) 0.5 mg/dL 0.1-1.0 Serum or plasma alkaline phosphatase marcos surement (enzymatic activity/volume) 175 U/L 40-136 Serum or plasma aspartate aminotransfera se measurement (enzymatic activity/volume) 25 U/L 5-34 Serum or plasma alanine aminotransferase measurement (enzymatic activity/volume) 27 U/L 0-55 Serum or plasma protein measurement (mass/volume) 8.2 g/dL 6.4-8.2 Serum or plasma albumin measurement (mass/volume) 4.9 g/dL 3.2-4.5 Lipase - 03/12/19 17:40 Lipase 25 U/L 8-78 VITAMIN B12 - 07/21/19 10:05 VITAMIN B12 308 pg/mL 200-1100 PDM - PANEL (PROFILE 1) - 07/21/19 12 :35 Prescribed Drug 1 Adderall(TM) NRG Creatinine 79.0 mg/dL > or = 20.0 pH 7.3 4.5-9.0 Oxidant NEGATIVE mcg/mL <200 Amphetamines NEGATIVE ng/mL <500 medMATCH Amphetamines INCONSISTENT NRG Benzodiazepines POSITIVE ng/mL <100 Marijuana Metabolite POSITIVE ng/mL <20 Cocaine Metabolite NEGATIVE ng/mL <150 medMATCH Cocaine Metab CONSISTENT NRG Opiates NEGATIVE ng/mL <100 medMATCH Opiates CONSISTENT NRG Oxycodone NEGATIVE ng/mL <100 medMATCH Oxycodone CONSISTENT NRG COMMENT NRG Alphahydroxyalprazolam NEGATIVE ng/mL <25 medMATCH aOH alprazolam CONSISTENT NRG Alphahydroxymidazolam NEGATIVE ng/mL < 50 medMATCH aOH midazolam CONSISTENT NRG Alphahydroxytriazolam NEGATIVE ng/mL < 50 medMATCH aOH triazolam CONSISTENT NRG Aminoclonazepam NEGATIVE ng/mL <25 medMATCH Aminoclonazepam CONSISTENT NRG Hydroxyethylflurazepam NEGATIVE ng/mL <50 medMATCH OH,Et flurazepam CONSISTENT NR G Lorazepam NEGATIVE ng/mL <50 medMATCH Lorazepam CONSISTENT NRG Nordiazepam 233 ng/mL <50 medMATCH Nordiazepam CONSISTENT NRG Oxazepam 2504 ng/mL <50 medMATCH Oxazepam CONSISTENT NRG Temazepam >6250 ng/mL <50 medMATCH Temazepam CONSISTENT NRG Prescribed Drug 2 Diazepam NRG Prescribed Drug 3 Temazepam NRG Prescribed Drug 4 Tramadol NRG Marijuana Metabolite 1893 ng/mL <5 medMATCH Marijuana Metab INCONSISTENT N RG Barbiturates NEGATIVE ng/mL <300 medMATCH Barbiturates CONSISTENT NRG Methadone Metabolite NEGATIVE ng/mL <100 medMATCH Methadone Metab CONSISTENT NRG Phencyclidine NEGATIVE ng/mL <25 medMATCH Phencyclidine CONSISTENT NRG Encounters ACCT No. Visit Date/Time Discharge Status Pt. Type Provider Facility Loc./Unit Complaint [id number] 08/01/2019 15:10:00 08/01/2019 23:59:5 9 [facility] Outpatient [facility], RYANNE Vences [facility] [id number] 07/21/2019 09:30:00 Document Registration [id number] 09/23/2018 09:20:00 Document Registration [id number] 08/13/2018 08:40:00 Document Registration [id number] 07/10/2018 08:00:00 Document Registration [id number] 05/28/2018 13:40:00 Document Registration [id number] 08/05/2019 17:03:00 020 19:31:00 DIS Emergency DUANE LOU DO Via [facility] ER FS FELL,UPPER BACK/SHOULDE R,KNEE PAIN [id number] 03/12/2019 16:35:00 19:46:00 DIS Emergency FRANCISCA SANTIAGO, DIANA Tobar Via [facility] ER FS VOMITING DIARRHEA [id number] 02/02/2019 14:35:00 17:30:00 DIS Emergency DIANA ESPINOSA MD Via [facility] ER FS FALL; HEAD INJ [id number] 12/02/2018 07:50:00 23:59:59 CLS Outpatient MELINDA PAIGE MD Via [facility] RAD ASYMMETRICAL HEARING LO SS RIGHT HEAR [id number] 07/16/2018 12:21:00 23:59:59 CLS Outpatient MIGDALIA HOFFMAN Via [facility] RAD FS M54.5
--- NOTE | 2019-08-05 21:12 | Diagnostic Imaging Report ---
PROCEDURE: CT head and CT cervical spine without contrast. TECHNIQUE: Multiple contiguous axial images were obtained through the brain and cervical spine without the use of intravenous contrast. Sagittal and coronal reformations through the cervical spine were then performed. Auto Exposure Controls were utilized during the CT exam to meet ALARA standards for radiation dose reduction. INDICATION: Fell, head and neck pain. CT HEAD: FINDINGS: This exam is less than optimal due to streak artifact. There is no mass, shift of the midline, or hemorrhage to suggest an acute intracranial abnormality. As noted on the prior exam of 02/02/2019, there are bilateral shunt catheters in place. The catheters seem unchanged in position. The ventricles are not abnormally dilated and stable in size when compared to the prior study. The bone windows show no evidence for a skull fracture. The orbits and sinuses are not visualized in their entirety; where visualized, there is no acute abnormality. IMPRESSION: 1. There is no evidence for an acute intracranial abnormality. When compared to the prior study, there has been no significant change. 2. If clinical concern regarding an acute abnormality persists, then MRI will be recommended for further study. CT CERVICAL SPINE: FINDINGS: There are no prior studies available for comparison. The reconstructed parasagittal images show slight straightening of the cervical spine. This may be secondary to muscle spasm and/or positioning. There is moderate degenerative disc and bony disease at C5-C6 and C6-C7. There is no evidence for a high-grade stenosis at either of these levels. The remainder of the cervical spine is also unremarkable for a high-grade central stenosis. There is no fracture or acute bony abnormality appreciated. There is no sign of retropharyngeal edema. The thyroid gland was obscured by streak artifact. The lung apices are clear. IMPRESSION: There is no evidence for an acute bony abnormality of the cervical spine. Dictated by: Dictated on workstation # [id number]
--- NOTE | 2019-08-05 21:12 | Diagnostic Imaging Report ---
PROCEDURE: CT thoracic and lumbar spine without contrast. TECHNIQUE: Multiple contiguous axial images were obtained through the thoracic and lumbar spine without the use of intravenous contrast. Sagittal and coronal reformations were then performed. All CT scans use one or more of the following dose optimizing techniques: automated exposure control, MA and/or KvP adjustment based on a patient size and exam type, or iterative reconstruction. INDICATION: Fall. Back pain. FINDINGS: There is mild dextroscoliosis of the thoracic spine and minimal levoscoliosis of the lumbar. Lateral alignment of the thoracic and lumbar spine appear within normal limits. The facets are normally aligned. There are no findings of facet joint or disc space widening. The vertebral body heights appear maintained. No acute thoracic or lumbar fracture is evident. The visualized portion of the pelvis is unremarkable without SI joint diastases. No posterior rib fractures are evident. There are no CT findings present to suggest high-grade thoracic canal stenosis. No high-grade lumbar canal stenosis evident. The paraspinal soft tissues appear unremarkable. The thoracic aorta is normal in caliber. Visualized portion of the lungs demonstrate no evidence of consolidation or pleural collection. There are extensive ingested tubular densities present within the stomach of uncertain etiology. The kidneys appear nonobstructed. No pelvic free fluid is evident. IMPRESSION: 1. Mild thoracolumbar scoliosis without CT findings of an acute thoracic or lumbar fracture. 2. No findings of facet joint or disc space widening. Lateral alignment is normal 3. No CT findings to suggest high-grade thoracic or lumbar central canal stenosis. 4. Paraspinal soft tissues unremarkable. Dictated by: Dictated on workstation # [id number]
--- NOTE | 2019-08-05 21:12 | Diagnostic Imaging Report ---
PROCEDURE: CT chest, abdomen, and pelvis without contrast. TECHNIQUE: Multiple contiguous axial images were obtained through the chest, abdomen, and pelvis without the use of intravenous contrast. Auto Exposure Controls were utilized during the CT exam to meet ALARA standards for radiation dose reduction. INDICATION: Fall the previous day. Pain. COMPARISON: Correlation is made with the CT thoracic and lumbar spine from the same day. FINDINGS: The lungs demonstrate no evidence of pneumothorax. There is no pulmonary consolidation or contusion evident. There are no findings of a pleural collection or hemothorax. The thoracic aorta is normal in caliber. There is a small low-density pericardial effusion. There is no mediastinal hematoma evident. No pathologically enlarged thoracic lymph nodes are evident. The noncontrast appearance of the liver is unremarkable. Patient is status post cholecystectomy. There is no abnormal biliary dilatation. The spleen is normal in size. There is no adrenal mass. The pancreas demonstrates no focal abnormality. The kidneys appear nonobstructed without evidence of urolithiasis. There are extensive ingested tubular densities within the stomach of indeterminate etiology. Correlate for recent food ingestion. There are no findings to suggest bowel obstruction or abnormal bowel thickening. There is no free fluid evident within the pelvis or evidence of hemoperitoneum. The urinary bladder is unremarkable. The patient is status post hysterectomy. Note is made of a ventriculoperitoneal shunt catheter. There is no fluid collection about its tip which terminates within the left upper quadrant. There are no pathologically enlarged abdominal or pelvic lymph nodes. Aorta is normal in caliber. There are no findings of pelvic fracture or hip dislocation. There is no pelvic diastasis. No acute thoracic or lumbar fractures are evident. There is no shoulder dislocation. Clavicle is unremarkable. No sternal fracture evident. No rib fractures are evident. IMPRESSION: 1. No CT evidence of an acute traumatic abnormality within the chest, abdomen, or pelvis. 2. Lungs are clear without pneumothorax or pleural collection. 3. Small low-density nontraumatic pericardial effusion. 4. No noncontrast evidence of solid organ injury within the abdomen or pelvis. There is no free fluid or hemoperitoneum. 5. No acute inflammatory or obstructive process. 6. Ventriculoperitoneal shunt catheter appears intact. 7. Prior cholecystectomy and hysterectomy. 8. No fractures are evident. Dictated by: Dictated on workstation # [id number]
--- NOTE | 2019-08-05 21:12 | Diagnostic Imaging Report ---
EXAMINATION: Left femur. INDICATION: Leg pain. TECHNIQUE: AP and lateral views were obtained. COMPARISON: There are no prior studies available for comparison. FINDINGS: There is no fracture, dislocation, or acute bony abnormality evident. The hip and knee joints are fairly well maintained. There is chondrocalcinosis of both menisci. The soft tissues are unremarkable. IMPRESSION: There is no evidence for an acute bony abnormality. Dictated by: Dictated on workstation # [id number]
--- NOTE | 2019-08-05 21:12 | Diagnostic Imaging Report ---
EXAMINATION: Left knee at 05:55 p.m. INDICATION: Injury, knee pain. FINDINGS: Three views were obtained. There are no prior studies available for comparison. There is no fracture, dislocation, or acute bony abnormality evident. There is only mild narrowing of the medial and lateral compartments and the patellofemoral space; however, there does appear to be chondrocalcinosis of both menisci. The soft tissues are unremarkable. IMPRESSION: 1. There is no evidence for an acute bony abnormality. 2. There is mild degenerative disease involving the knee joint including chondrocalcinosis of both menisci. Dictated by: Dictated on workstation # [id number]
== END 2019-08-05 19:31 | disposition home or self-care (01) ==
LOC: EDUNIT# 17:02 → ER FS 17:03
DX: M25.50 Pain in unspecified joint (principal); G89.29 Other chronic pain; F17.210 Nicotine dependence, cigarettes, uncomplicated; Z88.2 Allergy status to sulfonamides; Z88.5 Allergy status to narcotic agent; Z88.1 Allergy status to other antibiotic agents; W19.XXXA Unspecified fall, initial encounter
CPT/HCPCS: 70450; 71250; 72125; 72128; 72131; 73552; 73562; 74176

== ENCOUNTER 2019-08-21 21:39 | Emergency (ER) | payer MEDICAID ==
[~2019-08-21] VITALS: Ht 170 cm; Wt 55.0 kg
--- OUTSIDE RECORDS SUMMARY | 2019-08-21 21:45 | XMS REPORT | Continuity of Care Document ---
Author Organization Unknown Address Unknown Phone Unavailable Allergies Active Description Code Type Severity Reaction Onset Reported/Identified Relationship to Patient Clinical Status Yes No Known Drug Allergies [id number] Drug Allergy Unknown N/A 12/02/2018 Yes codeine [id number] Drug Allergy Unknown N/A 08/05/2019 Yes levofloxacin [id number] Drug Allergy Unknown N/A 08/05/2019 Yes Sulfa (Sulfonamide Antibiotics) [id number] Drug Allergy Unknown N/A 020 Medications There is no data. 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, 07/16/2018 MIGDALIA HOFFMAN MACHINES TECHNICIAN Ot W06.XX XA FALL FROM BED, INITIAL ENCOUNTER 07/18/2018 MIGDALIA HOFFMAN MACHINES TECHNICIAN Ot M43.8X 6 OTHER SPECIFIED DEFORMING DORSOPATHIES, 07/18/2018 MIGDALIA HOFFMAN MACHINES TECHNICIAN Ot W06.XX XA FALL FROM BED, INITIAL ENCOUNTER 08/01/2018 MIGDALIA HOFFMAN MACHINES TECHNICIAN Ot M43.8X 6 OTHER SPECIFIED DEFORMING DORSOPATHIES, 08/01/2018 DALTON MIGDALIA MACHINES TECHNICIAN Ot W06.XX XA FALL FROM BED, INITIAL ENCOUNTER 12/01/2018 MIGDALIA HOFFMANP Ot M43.8X 6 OTHER SPECIFIED DEFORMING DORSOPATHIES, 12/01/2018 DALTON MIGDALIA MACHINES TECHNICIAN Ot W06.XX XA FALL FROM BED, INITIAL [...] Z98.890 OTHER SPECIFIED POSTPROCEDURAL STATES 03/12/2019 DIANA ESPNIOSA MD Ot R10.9 UNSPECIFIED ABDOMINAL PAIN 03/12/2019 DIANA ESPINOSA MD Ot R11.2 NAUSEA WITH VOMITING, UNSPECIFIED 03/12/2019 DIANA ESPINOSA MD Ot R19.7 DIARRHEA, UNSPECIFIED 03/12/2019 DIANA ESPINOSA MD Ot Z77.2 2 CNTCT W AND EXPSR TO ENVIRON TOBACCO SMO 03/12/2019 DIANA ESPINOSA MD Ot Z90.4 9 ACQUIRED ABSENCE OF OTHER SPECIFIED PART 03/12/2019 DIANA ESPINOSA MD Ot Z90.7 10 ACQUIRED ABSENCE OF BOTH CERVIX AND UTER 03/16/2019 DIANA ESPINOSA MD Ot R10.9 UNSPECIFIED ABDOMINAL PAIN 03/16/2019 DIANA ESPINOSA MD Ot R11.2 NAUSEA WITH VOMITING, UNSPECIFIED 03/16/2019 DIANA ESPINOSA MD Ot R19.7 DIARRHEA, UNSPECIFIED 03/16/2019 DIANA ESPINOSA MD Ot Z77.2 2 CNTCT W AND EXPSR TO ENVIRON TOBACCO SMO 03/16/2019 DIANA ESPINOSA MD Ot Z90.4 9 ACQUIRED ABSENCE OF OTHER SPECIFIED PART 03/16/2019 DIANA ESPINOSA MD Ot Z90.7 10 ACQUIRED ABSENCE OF BOTH CERVIX AND UTER 08/07/2019 DUANE LOU DO Ot F17.210 NICOTINE DEPENDENCE, CIGARETTES, UNCOMPL 08/07/2019 DUANE LOU DO Ot G89.29 OTHER CHRONIC PAIN 08/07/2019 DUANE LOU DO Ot M25.50 PAIN IN UNSPECIFIED JOINT 08/07/2019 DUANE LOU DO Ot R52 PAIN, UNSPECIFIED 08/07/2019 DUANE LOU DO Ot W19.XXXA UNSPECIFIED FALL, INITIAL ENCOUNTER 08/07/2019 DUANE LOU DO, Ot Z88 .1 ALLERGY STATUS TO OTHER ANTIBIOTIC AGENT 08/07/2019 DUANE LOU DO, Ot Z88 .2 ALLERGY STATUS TO SULFONAMIDES STATUS 08/07/2019 DUANE LOU DO, Ot Z88 .5 ALLERGY STATUS TO NARCOTIC AGENT STATUS Procedures There is no data. Results Test [...] 7-25 CREATININE 0.86 mg/dL 0.50-1.05 eGFR NON-AFR. MARTINIQUAIS 78 mL/min/1.73m2 > OR = 60 eGFR [...] TSH - 09/23/18 09:51 TSH 2.99 mIU/L NRG [id number] - 12/02/18 08:00 Serum or plasma urea [...] NRG Blood erythrocyte morphology finding identification NORMAL NR Comprehensive metabolic panel - 03/12/19 17:40 Serum [...] Status Pt. Type Provider Facility Loc./Unit Complaint [id number] 08/20/2019 09:00:00 ACT [facility] [id number] 07/21/2019 09:30:00 Document Registration [id number] 09/23/2018 09:20:00 Document Registration [id number] 08/13/2018 08:40:00 Document Registration [id number] 07/10/2018 08:00:00 Document Registration [id number] 05/28/2018 13:40:00 Document Registration [id number] 08/05/2019 17:03:00 19:31:00 DIS Outpatient DUANE LOU DO Via [facility] ER FS FELL,UPPER BACK/SHOULDE R,KNEE PAIN [id number] 03/12/2019 16:35:00 19:46:00 DIS Emergency DIANA ESPINOSA MD Via [facility] ER FS VOMITING DIARRHEA [id number] 02/02/2019 14:35:00 17:30:00 DIS Emergency DIANA ESPINOSA MD Via [facility] ER FS FALL; HEAD INJ [id number] 12/02/2018 07:50:00 23:59:59 CLS Outpatient MELINDA PAIGE MD Via [facility] RAD ASYMMETRICAL HEARING LO SS RIGHT HEAR [id number] 07/16/2018 12:21:00 23:59:59 CLS Outpatient MIGDALIA HOFFMAN Via [facility] RAD FS M54.5
--- NOTE | 2019-08-21 22:00 | ED Neurological Problem ---
General Stated Complaint: VERTIGO SYMPTOMS Source: patient Exam Limitations: no limitations History of Present Illness Date Seen by Provider: Aug 21, 2019 Time Seen by Provider: 09:45 Initial Comments Patient presents via private vehicle, brought by her family to the ER with complaints of having trouble walking and weakness which began within an hour prior to arrival to the ER tonight. Denies any recent illness, fever, chills, chest pain or shortness of air. States she's had a history of "11 brain surgeries". Neurologic care at [facility]. Patient states she was sitting down and got up and was walking across the room when the dizziness and weakness began. Did not fall. Timing/Duration: 1/2 hour Associated Symptoms: No confusion; fatigue; No fever/chills, No insomnia, No loss of consciousness, No muscle spasms, No nausea/vomiting, No numbness in legs/feet, No paresthesia, No ringing in ears, No seizures; sleepy, slurred speech; No tingling in legs/feet; trouble walking; No vision changes; weakness Allergies and Home Medications Allergies Coded Allergies: Sulfa (Sulfonamide Antibiotics) (Verified Allergy, Unknown, 08/05/19) codeine (Verified Allergy, Unknown, 08/05/19) levofloxacin (Verified Allergy, Unknown, 08/05/19) Home Medications Meclizine HCl 25 Mg Tablet, 25 MG PO Q8H Prescribed by: JOE GARVIN on 08/21/19 3495 Patient Home Medication List Home Medication List Reviewed: Yes Review of Systems Review of Systems Constitutional: No chills; dizziness; No fever; malaise, weakness Eyes: No Symptoms Reported Ears, Nose, Mouth, Throat: no symptoms reported Respiratory: No cough, No short of breath Cardiovascular: No chest pain, No edema, No Hx of Intervention, No palpitations Gastrointestinal: No abdominal pain, No constipation, No diarrhea, No loss of appetite, No nausea, No vomiting Musculoskeletal: No back pain, No joint pain Psychiatric/Neurological: See HPI; Denies Cognitive Dysfunction, Denies Headache, Denies Numbness, Denies Tonic Clonic Seizures; Weakness Past Czrklej-Ovqsoj-Ppunvz Hx Past Med/Social Hx: Reviewed Nursing Past Med/Soc Hx Patient Social History Alcohol Beverage of Choice: Beer Drug of Choice: Marijuana Type Used: Cigarettes 2nd Hand Smoke Exposure: Yes Recent Foreign Travel: No Contact w/Someone Who Travel: No Recent Hopitalizations: No Seasonal Allergies Seasonal Allergies: No Past Medical History Surgeries: Yes (brain shunt) Appendectomy, Gallbladder, Hysterectomy Respiratory: No Cardiac: No Neurological: No Genitourinary: No Gastrointestinal: No Musculoskeletal: No Endocrine: No HEENT: No Cancer: No Psychosocial: No Integumentary: No Blood Disorders: No Physical Exam Vital Signs Vital Signs - First Documented 08/21/19 21:40 Temp 36.0 Pulse 62 Resp 16 B/P (MAP) 111/74 (86) Pulse Ox 98 O2 Delivery Room Air Capillary Refill : Height, Weight, BMI Height: '" Weight: lbs. oz. 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, no motor/sensory deficits Crainal Nerves: normal hearing, normal speech, PERRL; No abnormal eye position, No abnormal gag reflex, No abnormal pupil position, No abnormal speech, No facial asymmetry, No facial droop, No facial paresthesias, No facial weakness, No gaze palsy Coordination/Gait: normal finger to nose Motor/Sensory: no motor deficit, no sensory deficit, no pronator drift Skin: normal color, warm/dry Stroke NIH Stroke Scale Assessment Select: Initial Level of Consciousness: 0=Alert (0), Level of Consciousness- Questions: 0=Answers both month/age (0), LOC Commands: 0=Performs both tasks (0), Gaze: Normal (0), Visual Bolton: 0=No visual loss (0), Facial Movement (Facial Paresis): 0=Normal symmetrical mnt (0), Motor Function-Arms Right: 0=No drift (0), Motor Function-Arms Left: 0=No drift (0), Motor Function-Legs Right: 0=No drift (0), Motor Function-Legs Left: 0=No drift (0), Limb Ataxia: 0=Absent (0), Sensory: 0=Normal:no loss (0), Best Language: 0=No aphasia (0), Dysarthria: 0=Normal (0), Extinction & Inattention: 0=No abnormality (0), Total: 0 Progress/Results/Core Measures Results/Orders Lab Results Laboratory Tests Test 08/21/19 22:00 Range/Units White Blood Count 11.8 H 4.3-11.0 10^3/uL Red Blood Count 3.56 L 4.35-5.85 10^6/uL Hemoglobin 11.9 11.5-16.0 G/DL Hematocrit 35 35-52 % Mean Corpuscular Volume 97 80-99 FL Mean Corpuscular Hemoglobin 33 25-34 PG Mean Corpuscular Hemoglobin Concent 35 32-36 G/DL Red Cell Distribution Width 12.9 10.0-14.5 % Platelet Count 268 130-400 10^3/uL Mean Platelet Volume 9.4 7.4-10.4 FL Neutrophils (%) (Auto) 57 42-75 % Lymphocytes (%) (Auto) 33 12-44 % Monocytes (%) (Auto) 6 0-12 % Eosinophils (%) (Auto) 3 0-10 % Basophils (%) (Auto) 1 0-10 % Neutrophils # (Auto) 6.8 1.8-7.8 X 10^3 Lymphocytes # (Auto) 3.9 1.0-4.0 X 10^3 Monocytes # (Auto) 0.7 0.0-1.0 X 10^3 Eosinophils # (Auto) 0.3 0.0-0.3 10^3/uL Basophils # (Auto) 0.1 0.0-0.1 10^3/uL Sodium Level 138 135-145 MMOL/L Potassium Level 4.2 3.6-5.0 MMOL/L Chloride Level 101 98-107 MMOL/L Carbon Dioxide Level 23 21-32 MMOL/L Anion Gap 14 5-14 MMOL/L Blood Urea Nitrogen 15 7-18 MG/DL Creatinine 0.82 0.60-1.30 MG/DL Estimat Glomerular Filtration Rate > 60 BUN/Creatinine Ratio 18 Glucose Level 96 70-105 MG/DL Calcium Level 9.1 8.5-10.1 MG/DL Corrected Calcium 9.0 8.5-10.1 MG/DL Total Bilirubin 0.2 0.1-1.0 MG/DL Aspartate Amino Transf (AST/SGOT) 15 5-34 U/L Alanine Aminotransferase (ALT/SGPT) 20 0-55 U/L Alkaline Phosphatase 96 40-136 U/L Troponin I < 0.30 <0.30 NG/ML Total Protein 6.4 6.4-8.2 GM/DL Albumin 4.1 3.2-4.5 GM/DL Serum Alcohol < 10 <10 MG/DL My Orders Orders - JOE GARVIN DO Ct Head Wo (08/21/19 21:54) Ed Iv/Invasive Line Start (08/21/19 21:54) Alcohol (08/21/19 21:54) Cbc With Automated Diff (08/21/19 21:54) Comprehensive Metabolic Panel (08/21/19 21:54) Drug Screen Stat (Urine) (08/21/19 21:54) Troponin I Fs (08/21/19 21:54) Urinalysis (08/21/19 21:54) Ekg Tracing (08/21/19 21:54) Ns Iv 1000 Ml (Sodium Chloride 0.9%) (08/21/19 22:45) Meclizine Tablet (Antivert Tablet) (08/21/19 22:45) Medications Given in ED Current Medications Medications Dose Ordered Sig/Suhas Route Start Time Stop Time Status Last Admin Dose Admin Meclizine HCl 25 mg ONCE ONCE PO 08/21/19 22:45 08/21/19 22:47 DC 08/21/19 22:43 25 MG Vital Signs/I&O 08/21/19 08/21/19 21:40 23:31 Temp 36.0 Pulse 62 68 Resp 16 16 B/P (MAP) 111/74 (86) 107/68 Pulse Ox 98 98 O2 Delivery Room Air Room Air Progress Progress Note : Time: 22:39 Progress Note With pt permission, called patient's son, Perry to ask further questions about his mother's presentation. He states that she was feeling normal, walked into another room in the house and then suddenly became dizzy and nauseated with generalized weakness and having trouble walking She was off balance. Also states her medical condition is of a traumatic brain injury. It is not typical for her to have dizziness. She does take Valium as well as occasional muscle relaxer and he had no knowledge of what medication she may taken tonight. 2330- prior to DC, patient able to stand at bedside and feeling much better. Still a little dizzy but no longer unsteady. Discussed drinking more water and Rx being sent to [facility] (Meclizine) that she can take tomorrow if needed. Also discussed follow up if not feeling better or certainly if worse or progression of symptoms. Initial ECG Impression Time: 22:10 Initial ECG Rate: 60 Initial ECG Rhythm: Normal Sinus Initial ECG Impression: Normal Initial ECG Comparisson: No Previous ECG Available Diagnostic Imaging Diagonstic Imaging: CT Plain Films/CT/US/NM/MRI: head Comments Bilateral ventriculostomy tubes, no evidence of obstructive hydrocephalus or intracranial hemorrhage or infarct. [facility]ed: [facility] Imp[facility] Primary Impression: Vertigo Additional Impression: History of traumatic brain injury Disposition: HOME, SELF-CARE Condition: Stable Departure-Patient Inst. Decision time for Depature: 23:32 Referrals: SELF,RYANNE SANTIAGO (PCP/Family) Primary Care Physician Patient Instructions: Vertigo (a Type of Dizziness) (DC) Add. Discharge Instructions: Follow up with Dr Bauman in 5 to 7 days. Call 911 or Go to the nearest ER if your symptoms get significantly worse or you have onset of stroke like symptoms: weakness of one side, difficulty speaking, facial droop. Scripts Meclizine HCl (Meclizine HCl) 25 Mg Tablet 25 MG PO Q8H for Dizziness, #20 TAB Prov: JOE GARVIN DO 08/21/19 JOE GARVIN DO Aug 21, 2019 22:00
[2019-08-21 22:04] LABS: BASOPHILS % (AUTO) 1 % (0-10); EOSINOPHILS % (AUTO) 3 % (0-10); HEMATOCRIT 35 % (35-52); HEMOGLOBIN 11.9 G/DL (11.5-16.0); LYMPHOCYTES % (AUTO) 33 % (12-44); MEAN CORPUSCULAR HEMOGLOBIN 33 PG (25-34); MEAN CORPUSCULAR HGB CONC 35 G/DL (32-36); MEAN CORPUSCULAR VOLUME 97 FL (80-99); MEAN PLATELET VOLUME 9.4 FL (7.4-10.4); MONOCYTES % (AUTO) 6 % (0-12); NEUTROPHILS # (AUTO) 6.8 X 10^3 (1.8-7.8); NEUTROPHILS % (AUTO) 57 % (42-75); PLATELET COUNT 268 10^3/uL (130-400); RED CELL DISTRIBUTION WIDTH 12.9 % (10.0-14.5); WHITE BLOOD COUNT 11.8 10^3/uL (4.3-11.0)
[2019-08-21 22:05] LABS: BASOPHILS # (AUTO) 0.1 10^3/uL (0.0-0.1); EOSINOPHILS # (AUTO) 0.3 10^3/uL (0.0-0.3); LYMPHOCYTES # (AUTO) 3.9 X 10^3 (1.0-4.0); MONOCYTES # (AUTO) 0.7 X 10^3 (0.0-1.0)
[2019-08-21 22:26] LABS: ALANINE AMINOTRANSFERASE 20 U/L (0-55); ALBUMIN 4.1 GM/DL (3.2-4.5); ALKALINE PHOSPHATASE 96 U/L (40-136); BILIRUBIN,TOTAL 0.2 MG/DL (0.1-1.0); BUN/CREATININE RATIO 18; CALCIUM 9.1 MG/DL (8.5-10.1); CARBON DIOXIDE 23 MMOL/L (21-32); CHLORIDE 101 MMOL/L (98-107); CREATININE SERUM 0.82 MG/DL (0.60-1.30); GFR ESTIMATED > 60; GLUCOSE 96 MG/DL (70-105); POTASSIUM 4.2 MMOL/L (3.6-5.0); SODIUM 138 MMOL/L (135-145); TOTAL PROTEIN 6.4 GM/DL (6.4-8.2)
[2019-08-21] MEDS ORDERED: NS IV 1000 ML 1,000 ML IV SCH (22:45)
[2019-08-21] MEDS ORDERED: MECLIZINE 25 MG (ANTIVERT) TAB PO ONE (22:45)
[2019-08-21 23:31] VITALS: BP 107/68
[2019-08-21] MEDS ORDERED: MECL-149 PO (23:31)
--- NOTE | 2019-08-22 07:27 | Diagnostic Imaging Report ---
Clinical indication: Patient complains of generalized weakness that started about 20 minutes prior to arrival. Exam: Axial CT scan of the brain without IV contrast with coronal and sagittal reformatted images. Auto Exposure Controls were utilized during the CT exam to meet ALARA standards for radiation dose reduction. Comparison: Head CT without contrast dated 08/05/2019.. Findings: There is no evidence of acute cerebral infarct, intracranial hemorrhage, or gross mass effect. Stable appearance and position of the ventricular shunt entering the left posterior aspect of the head with tip overlying the trigone of the left lateral ventricle. Stable ventricle sizes with no evidence of hydrocephalus. Again seen discontinuous ventricular shunt overlying the right frontal region. Stable patchy areas of low-attenuation white matter changes involving both cerebral hemispheres and left caudate head which may be related to chronic small vessel ischemic disease or postoperative changes. The brain parenchymal volume appears appropriate for patient's age. There is no brain herniation or midline shift. Basal cisterns are unremarkable. Postoperative changes with multiple jv hole craniotomies involving the skull. There is hypertrophic intracranial, extra-axial calcifications involving the bilateral convexities noted. There is small amount of fluid and/or mucosal thickening involving left maxillary sinus. Mastoid air cells are clear. IMPRESSION: 1.: Overall stable CT scan of brain with no evidence of interval acute intracranial process. 2: Stable position of the left-sided ventricular shunt with stable ventricle size and there is no evidence of hydrocephalus. I agree with [facility] report. Dictated by: Dictated on workstation # [id number]
== END 2019-08-21 23:35 | disposition home or self-care (01) ==
LOC: EDUNIT# 21:39 → ER FS 21:41
DX: R55 Syncope and collapse (principal); Z87.820 Personal history of traumatic brain injury; Z88.2 Allergy status to sulfonamides; Z88.5 Allergy status to narcotic agent; Z88.1 Allergy status to other antibiotic agents; Z77.22 Contact with and (suspected) exposure to environmental tobacco smoke (acute) (chronic); Z90.710 Acquired absence of both cervix and uterus
CPT/HCPCS: 36415; 70450; 80053; 80320; 84484; 85025; 93005

== ENCOUNTER 2019-08-24 13:55 | Emergency (ER) | payer MEDICAID ==
[~2019-08-24] VITALS: Ht 170 cm; Wt 55.0 kg
[~2019-08-24 13:55] MED LIST changes: +MECL-149 PO
--- NOTE | 2019-08-24 14:10 | ED Neurological Problem ---
General Stated Complaint: STROKE SYMPTOMS Source: patient Exam Limitations: no limitations History of Present Illness Date Seen by Provider: Aug 24, 2019 Time Seen by Provider: 14:00 Initial Comments 54-year-old female presents via EMS with complaint of "stroke like symptoms". No known last known well on arrival. Patient with history of traumatic brain in jury and subsequent brain surgeries. No obvious lateralizing weakness per EMS on arrival. No fall or injury. Allergies and Home Medications Allergies Coded Allergies: Sulfa (Sulfonamide Antibiotics) (Verified Allergy, Unknown, 08/05/19) codeine (Verified Allergy, Unknown, 08/05/19) levofloxacin (Verified Allergy, Unknown, 08/05/19) Home Medications Meclizine HCl 25 Mg Tablet, 25 MG PO Q8H Prescribed by: JOE GARVIN on 08/21/19 6897 Patient Home Medication List Home Medication List Reviewed: Yes Review of Systems Review of Systems Constitutional: malaise, weakness Respiratory: No cough, No short of breath Cardiovascular: No chest pain, No edema, No palpitations Gastrointestinal: No abdominal pain, No nausea, No vomiting Musculoskeletal: No back pain, No joint pain Skin: No change in color, No rash Psychiatric/Neurological: See HPI, Numbness (states "numb on the inside"); Denies Tonic Clonic Seizures, Denies Unable to Move Lower Ext, Denies Unable to Move Upper Ext; Weakness Past Bfodgwu-Vhwjxg-Chfyzt Hx Past Med/Social Hx: Reviewed Nursing Past Med/Soc Hx Patient Social History Alcohol Use: Denies Use Alcohol Beverage of Choice: Beer Drug of Choice: Marijuana Type Used: Cigarettes 2nd Hand Smoke Exposure: Yes Recent Hopitalizations: No Seasonal Allergies Seasonal Allergies: No Past Medical History Surgeries: Yes (brain shunt) Appendectomy, Gallbladder, Hysterectomy Respiratory: No Cardiac: No Neurological: No Genitourinary: No Gastrointestinal: No Musculoskeletal: No Endocrine: No HEENT: No Cancer: No Psychosocial: No Integumentary: No Blood Disorders: No Physical Exam Vital Signs Vital Signs - First Documented 08/24/19 14:41 Temp 36.4 Pulse 60 Resp 20 B/P (MAP) 140/72 (94) Pulse Ox 100 Capillary Refill : Height, Weight, BMI Height: '" Weight: lbs. oz. kg; 19.00 BMI Method: General Appearance: WD/WN, no apparent distress HEENT: normal ENT inspection Neck: non-tender, full range of motion, supple Respiratory: chest non-tender, lungs clear Cardiovascular: regular rate, rhythm, no edema, no JVD Gastrointestinal: non tender, soft; No distended, No guarding, No rebound, No tenderness Back: normal inspection, no CVA tenderness, no vertebral tenderness Extremities: non-tender, normal inspection, no pedal edema, no calf tenderness, normal capillary refill Neurologic/Psychiatric: alert; No EOM palsy, No sensory deficit; depressed affect Crainal Nerves: normal hearing, normal speech (but slow), PERRL; No facial asymmetry, No facial paresthesias, No gaze palsy Motor/Sensory: no motor deficit, no sensory deficit, no pronator drift; No weak motor strength RUE, No weak motor strength LUE, No weak motor strength RLE, No weak motor strength LLE Reflexes: 3+ Knee (R), 3+ Knee (L) Skin: normal color, warm/dry Stroke NIH Stroke Scale Assessment Select: Initial Level of Consciousness: 0=Alert (0), Level of Consciousness- Questions: 0=Answers both month/age (0), LOC Commands: 0=Performs both tasks (0), Gaze: Normal (0), Visual Bolton: 0=No visual loss (0), Facial Movement (Facial Paresis): 1=Minor paralysis (1), Motor Function-Arms Right: 1=Drift (1), Motor Function-Arms Left: 1=Drift (1), Motor Function-Legs Right: 1=Drift (1), Motor Function-Legs Left: 1=Drift (1), Limb Ataxia: 2=Present in two limbs (2), Sensory: 0=Normal:no loss (0), Best Language: 0=No aphasia (0 ), Dysarthria: 1=Mild to moderate loss (1), Total: 8 Progress/Results/Core Measures Results/Orders Lab Results Laboratory Tests Test 08/24/19 14:05 08/24/19 14:10 08/24/19 14:56 Range/Units Glucometer 98 70-110 MG/DL White Blood Count 9.7 4.3-11.0 10^3/uL Red Blood Count 4.42 4.35-5.85 10^6/uL Hemoglobin 14.4 # 11.5-16.0 G/DL Hematocrit 42 35-52 % Mean Corpuscular Volume 94 80-99 FL Mean Corpuscular Hemoglobin 33 25-34 PG Mean Corpuscular Hemoglobin Concent 35 32-36 G/DL Red Cell Distribution Width 12.6 10.0-14.5 % Platelet Count 323 130-400 10^3/uL Mean Platelet Volume 9.5 7.4-10.4 FL Neutrophils (%) (Auto) 52 42-75 % Lymphocytes (%) (Auto) 39 12-44 % Monocytes (%) (Auto) 6 0-12 % Eosinophils (%) (Auto) 2 0-10 % Basophils (%) (Auto) 1 0-10 % Neutrophils # (Auto) 5.0 1.8-7.8 X 10^3 Lymphocytes # (Auto) 3.8 1.0-4.0 X 10^3 Monocytes # (Auto) 0.6 0.0-1.0 X 10^3 Eosinophils # (Auto) 0.2 0.0-0.3 10^3/uL Basophils # (Auto) 0.1 0.0-0.1 10^3/uL Sodium Level 140 135-145 MMOL/L Potassium Level 3.7 3.6-5.0 MMOL/L Chloride Level 101 98-107 MMOL/L Carbon Dioxide Level 20 L 21-32 MMOL/L Anion Gap 19 H 5-14 MMOL/L Blood Urea Nitrogen 11 7-18 MG/DL Creatinine 0.76 0.60-1.30 MG/DL Estimat Glomerular Filtration Rate > 60 BUN/Creatinine Ratio 14 Glucose Level 97 70-105 MG/DL Calcium Level 9.9 8.5-10.1 MG/DL Corrected Calcium 8.5-10.1 MG/DL Total Bilirubin 0.4 0.1-1.0 MG/DL Aspartate Amino Transf (AST/SGOT) 24 5-34 U/L Alanine Aminotransferase (ALT/SGPT) 30 0-55 U/L Alkaline Phosphatase 119 40-136 U/L Troponin I < 0.30 <0.30 NG/ML Total Protein 7.5 6.4-8.2 GM/DL Albumin 4.6 H 3.2-4.5 GM/DL Urine Color PALE YELLOW Urine Clarity SLT CLOUDY Urine pH 8.0 5-9 Urine Specific [place] 1.010 L 1.016-1.022 Urine Protein NEGATIVE NEGATIVE Urine Glucose (UA) NEGATIVE NEGATIVE Urine Ketones NEGATIVE NEGATIVE Urine Nitrite NEGATIVE NEGATIVE Urine Bilirubin NEGATIVE NEGATIVE Urine Urobilinogen 0.2 < = 1.0 MG/DL Urine Leukocyte Esterase NEGATIVE NEGATIVE Urine RBC (Auto) NEGATIVE NEGATIVE Urine RBC NONE /HPF Urine WBC RARE /HPF Urine Squamous Epithelial Cells 25-50 H /HPF Urine Crystals NONE /LPF Urine Bacteria TRACE /HPF Urine Casts NONE /LPF Urine Mucus NEGATIVE /LPF Urine Culture Indicated NO My Orders Orders - ROVENSTINE,JOE L DO Ed Iv/Invasive Line Start (08/24/19 14:01) Ct Head Wo (08/24/19 14:01) Cbc With Automated Diff (08/24/19 14:01) Comprehensive Metabolic Panel (08/24/19 14:01) Troponin I Fs (08/24/19 14:01) Urinalysis (08/24/19 14:01) Ekg Tracing (08/24/19 14:01) Drug Screen Stat (Urine) (08/24/19 14:37) Lactated Ringers (Lr 1000 Ml Iv Solution (08/24/19 15:00) Vital Signs/I&O 08/24/19 14:41 Temp 36.4 Pulse 60 Resp 20 B/P (MAP) 140/72 (94) Pulse Ox 100 Progress Progress Note : Progress Note Spoke to patient's mother, Katy Ramirez who states she's "been a little off since Saturday". Overall has been acting normal, walking and talking carrying about normal activities over the past several days, however she does have "episodes where she suddenly becomes very weak and has difficulty talking and can't walk". She fell this morning, but then was okay again. Did complain of some chest pressure today, but resolved. Initial ECG Impression Time: 14:20 Initial ECG Rate: 50 Initial ECG Rhythm: Normal Sinus Initial ECG Intervals: Normal Initial ECG Impression: Normal Diagnostic Imaging Diagonstic Imaging: CT Plain Films/CT/US/NM/MRI: head Comments Date of Exam:08/24/19 CT HEAD WO PROCEDURE: CT head without contrast. TECHNIQUE: Multiple contiguous axial images were obtained through the brain without the use of intravenous contrast. Auto Exposure Controls were utilized during the CT exam to meet ALARA standards for radiation dose reduction. INDICATION: Weakness. COMPARISON: Correlation is made with prior CT from 08/22/2019. FINDINGS: Discontinuous right frontal CEMENT HANDLER shunt crossing the midline appears to be stable. The left posterior parietal CEMENT HANDLER shunt with tip in the region of the trigone left lateral ventricle is unchanged. Overall ventricular size appears stable. Periventricular white matter changes are again noted. There is no midline shift. No acute intra-axial or extra-axial hemorrhage is detected. Cisterns are patent. Visualized paranasal sinuses are clear. IMPRESSION: Stable noncontrast head CT when compared with examination three days earlier. Dictated on workstation # [id number] Dict: 08/24/19 1458 Trans: 08/24/19 1504 [facility] [id number] Interpreted by: VERONIKA SANTIAGO MD Electronically signed by: Departure Impression Primary Impression: Weakness Additional Impression: Bradycardia Disposition: [facility] Condition: Improved Departure-Patient Inst. Referrals: RYANNE ADAMS MD (PCP/Family) Primary Care Physician JOE GARVIN DO Aug 24, 2019 14:10
[2019-08-24 14:16] LABS: HEMOGLOBIN 14.4 G/DL (11.5-16.0); MEAN CORPUSCULAR HEMOGLOBIN 33 PG (25-34); WHITE BLOOD COUNT 9.7 10^3/uL (4.3-11.0)
[2019-08-24 14:17] LABS: BASOPHILS % (AUTO) 1 % (0-10); EOSINOPHILS % (AUTO) 2 % (0-10); HEMATOCRIT 42 % (35-52); LYMPHOCYTES % (AUTO) 39 % (12-44); MEAN CORPUSCULAR HGB CONC 35 G/DL (32-36); MEAN CORPUSCULAR VOLUME 94 FL (80-99); MEAN PLATELET VOLUME 9.5 FL (7.4-10.4); MONOCYTES % (AUTO) 6 % (0-12); NEUTROPHILS % (AUTO) 52 % (42-75); PLATELET COUNT 323 10^3/uL (130-400); RED CELL DISTRIBUTION WIDTH 12.6 % (10.0-14.5)
[2019-08-24 14:18] LABS: BASOPHILS # (AUTO) 0.1 10^3/uL (0.0-0.1); EOSINOPHILS # (AUTO) 0.2 10^3/uL (0.0-0.3); LYMPHOCYTES # (AUTO) 3.8 X 10^3 (1.0-4.0); MONOCYTES # (AUTO) 0.6 X 10^3 (0.0-1.0)
[2019-08-24 14:36] LABS: ALANINE AMINOTRANSFERASE 30 U/L (0-55); ALKALINE PHOSPHATASE 119 U/L (40-136); BILIRUBIN,TOTAL 0.4 MG/DL (0.1-1.0); BUN/CREATININE RATIO 14; CALCIUM 9.9 MG/DL (8.5-10.1); CARBON DIOXIDE 20 MMOL/L (21-32); CHLORIDE 101 MMOL/L (98-107); CREATININE SERUM 0.76 MG/DL (0.60-1.30); GFR ESTIMATED > 60; GLUCOSE 97 MG/DL (70-105); POTASSIUM 3.7 MMOL/L (3.6-5.0); SODIUM 140 MMOL/L (135-145)
[2019-08-24 14:37] LABS: ALBUMIN 4.6 GM/DL (3.2-4.5); TOTAL PROTEIN 7.5 GM/DL (6.4-8.2)
--- NOTE | 2019-08-24 15:04 | Diagnostic Imaging Report ---
PROCEDURE: CT head without contrast. TECHNIQUE: Multiple contiguous axial images were obtained through the brain without the use of intravenous contrast. Auto Exposure Controls were utilized during the CT exam to meet ALARA standards for radiation dose reduction. INDICATION: Weakness. COMPARISON: Correlation is made with prior CT from 08/22/2019. FINDINGS: Discontinuous right frontal FINISH ROLLS OPERATOR shunt crossing the midline appears to be stable. The left posterior parietal FINISH ROLLS OPERATOR shunt with tip in the region of the trigone left lateral ventricle is unchanged. Overall ventricular size appears stable. Periventricular white matter changes are again noted. There is no midline shift. No acute intra-axial or extra-axial hemorrhage is detected. Cisterns are patent. Visualized paranasal sinuses are clear. IMPRESSION: Stable noncontrast head CT when compared with examination three days earlier. Dictated by: Dictated on workstation # [id number]
[2019-08-24 15:14] LABS: BACTERIA,URINE TRACE /HPF; BILIRUBIN,URINE NEGATIVE (NEGATIVE); CLARITY,URINE SLT CLOUDY; COLOR,URINE PALE YELLOW; GLUCOSE, URINE (UA) NEGATIVE (NEGATIVE); KETONES,URINE NEGATIVE (NEGATIVE); LEUKOCYTE ESTERASE ,URINE NEGATIVE (NEGATIVE); NITRITE,URINE NEGATIVE (NEGATIVE); PROTEIN,URINE NEGATIVE (NEGATIVE); SQUAMOUS EPITHELIAL CELL,UR 25-50 /HPF; WBC,URINE RARE /HPF
[2019-08-24] MEDS: LACTATED RINGERS 1,000 ML IV SCH ×2 (15:17→17:17)
[2019-08-24 15:41] LABS: BENZODIAZEPINES SCREEN URINE POSITIVE (NEGATIVE); CANNABINOID SCREEN, URINE POSITIVE (NEGATIVE); OPIATE SCREEN URINE POSITIVE (NEGATIVE)
[2019-08-24 15:42] LABS: AMPHETAMINE SCREEN, URINE NEGATIVE (NEGATIVE); BARBITURATE SCREEN URINE NEGATIVE (NEGATIVE); COCAINE SCREEN URINE NEGATIVE (NEGATIVE); METHADONE STAT NEGATIVE (NEGATIVE); METHAMPHETAMINE SCREEN URINE S NEGATIVE (NEGATIVE); OXYCODONE STAT NEGATIVE (NEGATIVE); PROPOXYPHENE STAT NEGATIVE (NEGATIVE); TRICYCLIC ANTIDEPRESSANTS SCRE NEGATIVE (NEGATIVE)
[2019-08-24 17:33] VITALS: BP 101/74
--- NOTE | 2019-08-24 18:26 | NUR ---
Updated Katy, patient's mom, about the visitor policy at .
--- OUTSIDE RECORDS SUMMARY | 2019-08-24 18:29 | XMS REPORT | Continuity of Care Document ---
Author Organization Unknown Address Unknown Phone Unavailable Allergies Active Description Code Type Severity Reaction Onset Reported/Identified Relationship to Patient Clinical Status Yes No Known Drug Allergies [id number] Drug Allergy Unknown N/A 12/02/2018 Yes codeine [id number] Drug Allergy Unknown N/A 08/05/2019 Yes levofloxacin [id number] Drug Allergy Unknown N/A 08/05/2019 Yes Sulfa (Sulfonamide Antibiotics) [id number] 0491 Drug Allergy Unknown N/A 020 Medications There is no data. 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 6 OTHER SPECIFIED DEFORMING DORSOPATHIES, 07/18/2018 MIGDALIA HOFFMAN WEATHERCASTER Ot W06.XX XA FALL FROM BED, INITIAL ENCOUNTER 08/01/2018 MIGDALIA HOFFMAN WEATHERCASTER Ot M43.8X 6 OTHER SPECIFIED DEFORMING DORSOPATHIES, 08/01/2018 DALTON MIGDALIA WEATHERCASTER Ot W06.XX XA FALL FROM BED, INITIAL ENCOUNTER 12/01/2018 MIGDALIA HOFFMANP Ot M43.8X 6 OTHER SPECIFIED DEFORMING DORSOPATHIES, 12/01/2018 DALTON MIGDALIA WEATHERCASTER Ot W06.XX XA FALL FROM BED, INITIAL [...] M25.50 PAIN IN UNSPECIFIED JOINT 08/07/2019 DUANE LUO DO Ot R52 PAIN, UNSPECIFIED 08/07/2019 DUANE LOU DO Ot W19.XXXA UNSPECIFIED FALL, INITIAL ENCOUNTER 08/07/2019 DUANE LOU DO Ot Z88 .1 ALLERGY STATUS TO OTHER ANTIBIOTIC AGENT 08/07/2019 DUANE LOU DO Ot Z88 .2 ALLERGY STATUS TO SULFONAMIDES STATUS 08/07/2019 DUANE LOU DO Ot Z88 .5 ALLERGY STATUS TO NARCOTIC AGENT STATUS 08/21/2019 ROVENSTINE JOE MADERA Ot R53.1 WEAKNESS 08/21/2019 ROVENSTINE JOE MADERA Ot R55 SYNCOPE AND COLLAPSE 08/21/2019 ROVENSTINE DO, JOE Gutierrez Ot Z77.22 CNTCT W AND EXPSR TO ENVIRON TOBACCO SMO 08/21/2019 ROVENSTINE DO, JOE Gutierrez Ot Z87.820 PERSONAL HISTORY OF TRAUMATIC BRAIN INJU 08/21/2019 ROVENSTINE DO, JOE Gutierrez Ot Z88.1 ALLERGY STATUS TO OTHER ANTIBIOTIC AGENT 08/21/2019 ROVENSTINE DO, JOE Gutierrez Ot Z88.2 ALLERGY STATUS TO SULFONAMIDES STATUS 08/21/2019 ROVENSTINE DO, JOE Gutierrez Ot Z88.5 ALLERGY STATUS TO NARCOTIC AGENT STATUS 08/21/2019 ROVENSTINE DO, OJE Gutierrez Ot Z90.710 ACQUIRED ABSENCE OF BOTH CERVIX AND UTER [...] 7-25 CREATININE 0.86 mg/dL 0.50-1.05 eGFR NON-AFR. KENYAN 78 mL/min/1.73m2 > OR = 60 eGFR [...] TSH - 09/23/18 09:51 TSH 2.99 mIU/L [facility] [id number] - 12/02/18 08:00 Serum or plasma urea [...] 09/03 17:40 Blood monocytes/100 leukocytes 2 % NR Manual blood segmented neutrophils/100 leukocytes 79 % NRG Blood band neutrophils/100 leukocytes 6 % NRG Manual blood lymphocytes/100 leukocytes 13 % NRG Manual eosinophils/100 leukocytes in nose 0 % NRG Manual blood basophils/100 leukocytes 0 % NR Blood erythrocyte morphology finding identification NORMAL [facility] Comprehensive metabolic panel - 03/12/19 17:40 Serum [...] VITAMIN B12 308 pg/mL 200-1100 PDM - 09 PANEL (PROFILE 1) - 07/21/19 12 :35 [...] NEGATIVE ng/mL <25 medMATCH Phencyclidine CONSISTENT NRG Complete blood count (CBC) with automate d white blood cell (WBC) differential - 08/21/19 22:00 Blood leukocytes automated count (number/volume) 11.8 10*3/uL 4.3-11.0 Blood erythrocytes automated count (number/volume) 3.56 10*6/uL 4.35-5.85 Venous blood hemoglobin measurement (mass/volume) 11.9 g/dL 11.5-16.0 Blood hematocrit (volume fraction) 35 % 35-52 Automated erythrocyte mean corpuscular volume 97 [ foz_us] 80-99 Automated erythrocyte mean corpuscular h emoglobin (mass per erythrocyte) 33 pg 25-34 Automated erythrocyte mean corpuscular h emoglobin concentration measurement (mass/volume) 35 g/dL 32-36 Automated erythrocyte distribution width ratio 12. 9 % 10.0- 14.5 Automated blood platelet count (count/volume) 268 10*3/uL 130-400 Automated blood platelet mean volume measurement 9.4 [foz_us] 7.4-10.4 Automated blood neutrophils/100 leukocytes 57 % 42-75 Automated blood lymphocytes/100 leukocytes 33 % 12-44 Blood monocytes/100 leukocytes 6 % 0-12 Automated blood eosinophils/100 leukocytes 3 % 0-10 Automated blood basophils/100 leukocytes 1 % 0-10 Blood neutrophils automated count (number/volume) 6.8 10*3 1.8-7.8 Blood lymphocytes automated count (number/volume) 3.9 10*3 1.0-4.0 Blood monocytes automated count (number/volume) 0. 7 10*3 0.0-1.0 Automated eosinophil count 0.3 10*3/uL 0 .0-0.3 Automated blood basophil count (count/volume) 0.1 10*3/uL 0.0-0.1 Comprehensive metabolic panel - 08/21/19 22:00 Serum or plasma sodium measurement (moles/volume) 138 mmol/L 135-145 Serum or plasma potassium measurement (moles/volume) 4.2 mmol/L 3.6-5.0 Serum or plasma chloride measurement (moles/volume) 101 mmol/L 98-107 Carbon dioxide 23 mmol/L 21-32 Serum or plasma anion gap determination (moles/volume) 14 mmol/L 5-14 Serum or plasma urea nitrogen measurement (mass/volume ) 15 mg/dL 7-18 Serum or plasma creatinine measurement (mass/volume) 0.82 mg/dL 0.60-1.30 Serum or plasma urea nitrogen/creatinine mass ratio 18 NRG Serum or plasma creatinine measurement w ith calculation of estimated glomerular filtration rate > NRG Serum or plasma glucose measurement (mass/volume) 96 mg/dL 70-105 Serum or plasma calcium measurement (mass/volume) 9.1 mg/dL 8.5-10.1 Serum or plasma total bilirubin measurement (mass/volu me) 0.2 mg/dL 0.1-1.0 Serum or plasma alkaline phosphatase marcos surement (enzymatic activity/volume) 96 U/L 40-136 Serum or plasma aspartate aminotransfera se measurement (enzymatic activity/volume) 15 U/L 5-34 Serum or plasma alanine aminotransferase measurement (enzymatic activity/volume) 20 U/L 0-55 Serum or plasma protein measurement (mass/volume) 6.4 g/dL 6.4-8.2 Serum or plasma albumin measurement (mass/volume) 4.1 g/dL 3.2-4.5 CALCIUM CORRECTED 9.0 mg/dL 8.5-10.1 TROPONIN I FS - 08/21/19 22:00 TROPONIN I FS < 0.30 <0.30 Serum or plasma ethanol measurement (mas s/volume) - 08/21/19 22:00 Serum or plasma ethanol measurement (mass/volume) < mg/dL <10 Encounters ACCT No. Visit Date/Time Discharge Status Pt. Type Provider Facility Loc./Unit Complaint [id number] 08/20/2019 09:00:00 08/20/2019 23:59:5 9 CLS Outpatient ANGIE, RYANNE SALOMON [facility] [id number] 07/21/2019 09:30:00 Document Registration [id number] 09/23/2018 09:20:00 Document Registration [id number] 08/13/2018 08:40:00 Document Registration [id number] 07/10/2018 08:00:00 Document Registration [id number] 05/28/2018 13:40:00 Document Registration [id number] 08/24/2019 13:58:00 18:11:00 DIS Emergency ROVENSTINE JOE MADERA Via [facility] ER FS STROKE SYMPTOMS [id number] 08/21/2019 21:41:00 23:35:00 DIS Emergency ROVENSTINE JOE MADERA Via [facility] ER FS VERTIGO SYMPTOM S [id number] 08/05/2019 17:03:00 19:31:00 DIS Outpatient DUANE LOU DO Via [facility] ER FS FELL,UPPER BACK/SHOULDE R,KNEE PAIN [id number] 03/12/2019 16:35:00 19:46:00 DIS Emergency DIANA ESPINOSA MD Via [facility] ER FS VOMITING DIARRHEA [id number] 02/02/2019 14:35:00 17:30:00 DIS Emergency DIANA ESPINOSA MD Via [facility] ER FS FALL; HEAD INJ [id number] 12/02/2018 07:50:00 23:59:59 CLS Outpatient GRECIA SANTIAGO, MELINDA Bruce Via [facility] RAD ASYMMETRICAL HEARING LO SS RIGHT HEAR [id number] 07/16/2018 12:21:00 23:59:59 CLS Outpatient DALTON, MIGDALIA WEATHERCASTER Via [facility] RAD FS M54.5
== END 2019-08-24 18:11 | disposition short-term general hospital (02) ==
LOC: EDUNIT# 13:55 → ER FS 13:58
DX: R53.1 Weakness (principal); R00.1 Bradycardia, unspecified; Z88.2 Allergy status to sulfonamides; Z88.5 Allergy status to narcotic agent; Z88.1 Allergy status to other antibiotic agents; Z77.22 Contact with and (suspected) exposure to environmental tobacco smoke (acute) (chronic)
CPT/HCPCS: 36415; 70450; 80053; 80306; 81000; 82962; 84484; 85025

== ENCOUNTER 2019-08-29 11:24 | Emergency (ER) | payer MEDICAID ==
[~2019-08-29] VITALS: Ht 172.7 cm; Wt 65.0 kg
--- OUTSIDE RECORDS SUMMARY | 2019-08-29 11:30 | XMS REPORT | Continuity of Care Document ---
Author Organization Unknown Address Unknown Phone Unavailable Allergies Active Description Code Type Severity Reaction Onset Reported/Identified Relationship to Patient Clinical Status Yes No Known Drug Allergies [id number] Drug Allergy Unknown N/A 12/02/2018 Yes codeine [id number] Drug Allergy Unknown N/A 08/05/2019 Yes levofloxacin [id number] Drug Allergy Unknown N/A 08/05/2019 Yes Sulfa (Sulfonamide Antibiotics) D95626 0491 Drug Allergy Unknown N/A 020 Medications There is no data. 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 6 OTHER SPECIFIED DEFORMING DORSOPATHIES, 08/01/2018 DALTON MIGDALIA CORE DRIER Ot W06.XX XA FALL FROM BED, INITIAL ENCOUNTER 12/01/2018 MIGDALIA HOFFMANP Ot M43.8X 6 OTHER SPECIFIED DEFORMING DORSOPATHIES, 12/01/2018 DALTON MIGDALIA CORE DRIER Ot W06.XX XA FALL FROM BED, INITIAL [...] SYNCOPE AND COLLAPSE 08/21/2019 ROVENSTINE DO, JOE Brenda Ot Z77.22 CNTCT W AND EXPSR TO ENVIRON TOBACCO SMO 08/21/2019 ROVENSTINE DO, JOE Brenda Ot Z87.820 PERSONAL HISTORY OF TRAUMATIC BRAIN INJU 08/21/2019 ROVENSTINE DO, JOE Gutierrez Ot Z88.1 ALLERGY STATUS TO OTHER ANTIBIOTIC AGENT 08/21/2019 ROVENSTINE DO, JOE Gutierrez Ot Z88.2 ALLERGY STATUS TO SULFONAMIDES STATUS 08/21/2019 ROVENSTINE DO, JOE L Ot Z88.5 ALLERGY STATUS TO NARCOTIC AGENT STATUS 08/21/2019 ROVENSTINE DO, JOE L Ot Z90.710 ACQUIRED ABSENCE OF BOTH CERVIX AND UTER 08/26/2019 ROVENSTINE DO, JOE Gutierrez Ot R00.1 BRADYCARDIA, UNSPECIFIED 08/26/2019 ROVENSTINE DO, JOE L Ot R53.1 WEAKNESS 08/26/2019 ROVENSTINE DO, JOE Gutierrez Ot Z77.22 CNTCT W AND EXPSR TO ENVIRON TOBACCO SMO 08/26/2019 ROVENSTINE DO, JOE Brenda Ot Z88.1 ALLERGY STATUS TO OTHER ANTIBIOTIC AGENT 08/26/2019 ROVENSTINE DO, JOE L Ot Z88.2 ALLERGY STATUS TO SULFONAMIDES STATUS 08/26/2019 ROVENSTINE DO, JOE Gutierrez Ot Z88.5 ALLERGY STATUS TO NARCOTIC AGENT STATUS Procedures [...] 7-25 CREATININE 0.86 mg/dL 0.50-1.05 eGFR NON-AFR. ZAMBIAN 78 mL/min/1.73m2 > OR = 60 eGFR [...] - 09/23/18 09:51 TSH 2.99 mIU/L NR [id number] - 12/02/18 08:00 Serum or plasma urea [...] 0.0-0.1 Manual absolute plasma cell count - 12/2 6/19 17:40 Blood monocytes/100 leukocytes 2 % NRG [...] plasma ethanol measurement (mass/volume) < mg/dL <10 Capillary blood glucose measurement by g lucometer (mass/volume) - 08/24/19 14:05 Capillary blood glucose measurement by glucometer (mas s/volume) 98 mg/dL 70-110 Complete blood count (CBC) with automate d white blood cell (WBC) differential - 08/24/19 14:10 Blood leukocytes automated count (number/volume) 9.7 10*3/uL 4.3-11.0 Blood erythrocytes automated count (number/volume) 4.42 10*6/uL 4.35-5.85 Venous blood hemoglobin measurement (mass/volume) 14.4 g/dL 11.5-16.0 Blood hematocrit (volume fraction) 42 % 35-52 Automated erythrocyte mean corpuscular volume 94 [ foz_us] 80-99 Automated erythrocyte mean corpuscular h emoglobin (mass per erythrocyte) 33 pg 25-34 Automated erythrocyte mean corpuscular h emoglobin concentration measurement (mass/volume) 35 g/dL 32-36 Automated erythrocyte distribution width ratio 12. 6 % 10.0- 14.5 Automated blood platelet count (count/volume) 323 10*3/uL 130-400 Automated blood platelet mean volume measurement 9.5 [foz_us] 7.4-10.4 Automated blood neutrophils/100 leukocytes 52 % 42-75 Automated blood lymphocytes/100 leukocytes 39 % 12-44 Blood monocytes/100 leukocytes 6 % 0-12 Automated blood eosinophils/100 leukocytes 2 % 0-10 Automated blood basophils/100 leukocytes 1 % 0-10 Blood neutrophils automated count (number/volume) 5.0 10*3 1.8-7.8 Blood lymphocytes automated count (number/volume) 3.8 10*3 1.0-4.0 Blood monocytes automated count (number/volume) 0. 6 10*3 0.0-1.0 Automated eosinophil count 0.2 10*3/uL 0 .0-0.3 Automated blood basophil count (count/volume) 0.1 10*3/uL 0.0-0.1 Comprehensive metabolic panel - 08/24/19 14:10 Serum or plasma sodium measurement (moles/volume) 140 mmol/L 135-145 Serum or plasma potassium measurement (moles/volume) 3.7 mmol/L 3.6-5.0 Serum or plasma chloride measurement (moles/volume) 101 mmol/L 98-107 Carbon dioxide 20 mmol/L 21-32 Serum or plasma anion gap determination (moles/volume) 19 mmol/L 5-14 Serum or plasma urea nitrogen measurement (mass/volume ) 11 mg/dL 7-18 Serum or plasma creatinine measurement (mass/volume) 0.76 mg/dL 0.60-1.30 Serum or plasma urea nitrogen/creatinine mass ratio 14 NRG Serum or plasma creatinine measurement w ith calculation of estimated glomerular filtration rate > NRG Serum or plasma glucose measurement (mass/volume) 97 mg/dL 70-105 Serum or plasma calcium measurement (mass/volume) 9.9 mg/dL 8.5-10.1 Serum or plasma total bilirubin measurement (mass/volu me) 0.4 mg/dL 0.1-1.0 Serum or plasma alkaline phosphatase marcos surement (enzymatic activity/volume) 119 U/L 40-136 Serum or plasma aspartate aminotransfera se measurement (enzymatic activity/volume) 24 U/L 5-34 Serum or plasma alanine aminotransferase measurement (enzymatic activity/volume) 30 U/L 0-55 Serum or plasma protein measurement (mass/volume) 7.5 g/dL 6.4-8.2 Serum or plasma albumin measurement (mass/volume) 4.6 g/dL 3.2-4.5 TROPONIN I FS - 08/24/19 14:10 TROPONIN I FS < 0.30 <0.30 Complete urinalysis with reflex to cultu re - 08/24/19 14:56 Urine color determination PALE YELLOW N RG Urine clarity determination SLT CLOUDY NRG Urine pH measurement by test strip 8.0 5-9 Specific gravity of urine by test strip 1.010 1.016-1.022 Urine protein assay by test strip, semi-quantitative NEGATIVE NEGATIVE Urine glucose detection by automated test strip NE GATIVE NEGATIVE Erythrocytes detection in urine sediment by light micr oscopy NEGATIVE NEGATIVE Urine ketones detection by automated test strip NE GATIVE NEGATIVE Urine nitrite detection by test strip NEGATIVE NEGATIVE Urine total bilirubin detection by test strip NEGA TIVE NEGATIVE Urine urobilinogen measurement by automated test strip (mass/volume) 0.2 mg/dL < = 1.0 Urine leukocyte esterase detection by dipstick NEG ATIVE NEGATIVE Automated urine sediment erythrocyte cou nt by microscopy (number/high power field) NONE NRG Automated urine sediment leukocyte count by microscopy (number/high power field) RARE NRG Bacteria detection in urine sediment by light microsco py TRACE NRG Squamous epithelial cells detection in u rine sediment by light microscopy 25-50 NRG Crystals detection in urine sediment by light microsco py NONE NRG Casts detection in urine sediment by light microscopy NONE NRG Mucus detection in urine sediment by light microscopy NEGATIVE NRG Complete urinalysis with reflex to culture NO NRG Urine drug screening test - 08/24/19 14: 56 Urine phencyclidine detection by screening method NEGATIVE NEGATIVE Urine benzodiazepines detection by screening method POSITIVE NEGATIVE Urine cocaine detection NEGATIVE NEGATI VE Urine amphetamines detection by screening method N EGATIVE NEGATIVE Urine methamphetamine detection by screening method NEGATIVE NEGATIVE Urine cannabinoids detection by screening method P OSITIVE NEGATIVE Urine opiates detection by screening method POSITI VE NEGATIVE Urine barbiturates detection NEGATIVE N EGATIVE Screening urine tricyclic antidepressants detection NEGATIVE NEGATIVE Urine methadone detection by screening method NEGA TIVE NEGATIVE Urine oxycodone detection NEGATIVE NEGA TIVE Urine propoxyphene detection NEGATIVE N EGATIVE Encounters ACCT No. Visit Date/Time Discharge Status Pt. Type Provider Facility Loc./Unit Complaint [id number] 08/20/2019 09:00:00 08/20/2019 23:59:5 9 CLS Outpatient SELF[facility] [id number] 07/21/2019 09:30:00 Document Registration [id number] 09/23/2018 09:20:00 Document Registration [id number] 08/13/2018 08:40:00 Document Registration [id number] 07/10/2018 08:00:00 Document Registration [id number] 05/28/2018 13:40:00 Document Registration [id number] 08/24/2019 13:58:00 18:11:00 DIS Outpatient JOE GARVIN DO Via [facility] ER FS STROKE SYMPTOMS [id number] 08/21/2019 21:41:00 23:35:00 DIS Emergency JOE GARVIN DO Via [facility] ER FS VERTIGO SYMPTOM S [id number] 08/05/2019 17:03:00 19:31:00 DIS Outpatient DUANE LOU DO Via [facility] ER FS FELL,UPPER BACK/SHOULDE R,KNEE PAIN [id number] 03/12/2019 16:35:00 19:46:00 DIS Emergency DIANA ESPINOSA MD Via [facility] ER FS VOMITING DIARRHEA [id number] 02/02/2019 14:35:00 17:30:00 DIS Emergency DIANA ESPINOSA MD Via [facility] ER FS FALL; HEAD INJ [id number] 12/02/2018 07:50:00 23:59:59 CLS Outpatient MELINDA PAIGE MD Via [facility] RAD ASYMMETRICAL HEARING LO SS RIGHT HEAR [id number] 07/16/2018 12:21:00 23:59:59 CLS Outpatient MIGDALIA HOFFMAN Via [facility] RAD FS M54.5
[2019-08-29 11:53] LABS: HEMATOCRIT 37 % (35-52); HEMOGLOBIN 12.8 G/DL (11.5-16.0); MEAN CORPUSCULAR HEMOGLOBIN 33 PG (25-34); MEAN CORPUSCULAR HGB CONC 35 G/DL (32-36); MEAN CORPUSCULAR VOLUME 95 FL (80-99)
[2019-08-29 11:54] LABS: BASOPHILS # (AUTO) 0.1 10^3/uL (0.0-0.1); BASOPHILS % (AUTO) 1 % (0-10); EOSINOPHILS # (AUTO) 0.3 10^3/uL (0.0-0.3); EOSINOPHILS % (AUTO) 3 % (0-10); LYMPHOCYTES # (AUTO) 3.1 X 10^3 (1.0-4.0); LYMPHOCYTES % (AUTO) 28 % (12-44); MEAN PLATELET VOLUME 9.2 FL (7.4-10.4); MONOCYTES # (AUTO) 0.6 X 10^3 (0.0-1.0); MONOCYTES % (AUTO) 6 % (0-12); NEUTROPHILS # (AUTO) 6.8 X 10^3 (1.8-7.8); NEUTROPHILS % (AUTO) 62 % (42-75); PLATELET COUNT 344 10^3/uL (130-400); RED CELL DISTRIBUTION WIDTH 12.7 % (10.0-14.5)
[2019-08-29] MEDS ORDERED: LORazepam INJ 2 MG/ML (ATIVAN) VIAL IVP ONE (12:00)
[2019-08-29] MEDS ORDERED: ONDANSETRON 4 MG/2 ML (SDV) Z0FRAN IVP ONE (12:00)
[2019-08-29 12:14] LABS: BUN/CREATININE RATIO 18; CALCIUM 9.4 MG/DL (8.5-10.1); CARBON DIOXIDE 21 MMOL/L (21-32); CHLORIDE 106 MMOL/L (98-107); CREATININE SERUM 0.71 MG/DL (0.60-1.30); GFR ESTIMATED > 60; GLUCOSE 90 MG/DL (70-105); MAGNESIUM 1.9 MG/DL (1.6-2.4); POTASSIUM 4.2 MMOL/L (3.6-5.0); SODIUM 140 MMOL/L (135-145)
[2019-08-29 12:15] LABS: ALANINE AMINOTRANSFERASE 20 U/L (0-55); ALBUMIN 4.4 GM/DL (3.2-4.5); ALKALINE PHOSPHATASE 115 U/L (40-136); BILIRUBIN,TOTAL 0.2 MG/DL (0.1-1.0); TOTAL PROTEIN 7.1 GM/DL (6.4-8.2)
--- NOTE | 2019-08-29 12:27 | Diagnostic Imaging Report ---
PROCEDURE: CT head without contrast. TECHNIQUE: Multiple contiguous axial images were obtained through the brain without the use of intravenous contrast. Auto Exposure Controls were utilized during the CT exam to meet ALARA standards for radiation dose reduction. INDICATION: Right-sided weakness and dizziness. CORRELATION is made with recent CT head from 08/24/2019. The discontinuous right frontal TRANSMISSION DESIGN ENGINEER shunt remains in place. The left posterior parietal shunt remains in place. Overall ventricular size is stable. There is no hydrocephalus identified. There is no midline shift. No acute intra-axial or extra-axial hemorrhage is detected. Cisterns are patent. Visualized paranasal sinuses are clear. IMPRESSION: Stable chronic changes. No acute intracranial process is detected. Dictated by: Dictated on workstation # [id number]
--- NOTE | 2019-08-29 13:02 | ED General ---
General Chief Complaint: Neurological Problems Stated Complaint: WEAKNESS Nursing Triage Note: Patient reports she was discharged from [facility] on 08/26/19. Patient had presented to this ED with generalized weakness and dyskinesia. Patient states she was feeling well on discharge from and most of her symptoms had resolved. She states she was speaking with a friend on the phone this morning (unable to report time) when her symptoms returned. She additionally reports dizziness and some difficulty speaking. On arrival to the ED, patient states her difficulty speaking has resolved. Nursing Sepsis Screen: No Definite Risk Source of Information: Patient Exam Limitations: No Limitations History of Present Illness Date Seen by Provider: Aug 29, 2019 Time Seen by Provider: 11:30 Initial Comments Patient is a 54-year-old female with history of hydrocephalus, multiple stump who presented generalized weakness, vertigo and nausea. Symptoms began abruptly 2 hours prior to ED arrival. Patient reports feeling a spinning to the right. Symptoms are worse with head change in head position and movement. Associated symptoms include generalized weakness and nausea. Denies neck pain, tinnitus, headache and vomiting. No focal extremity weakness or loss of sensation. Patient spent several days at [facility] and was evaluated for the same released earlier this week. No other acute symptoms or changes. Timing/Duration: 1-3 Hours Severity: Moderate Allergies and Home Medications Allergies Coded Allergies: Sulfa (Sulfonamide Antibiotics) (Verified Allergy, Unknown, 08/05/19) codeine (Verified Allergy, Unknown, 08/05/19) levofloxacin (Verified Allergy, Unknown, 08/05/19) Home Medications Meclizine HCl 25 Mg Tablet, 25 MG PO Q8H Prescribed by: JOE GARVIN on 08/21/19 7960 Patient Home Medication List Home Medication List Reviewed: Yes Review of Systems Review of Systems Constitutional: see HPI EENTM: see HPI Respiratory: see HPI Cardiovascular: see HPI Gastrointestinal: no symptoms reported Genitourinary: see HPI Musculoskeletal: see HPI Skin: see HPI Psychiatric/Neurological: See HPI Hematologic/Lymphatic: See HPI Past Lupxpri-Pwtapz-Wwqcbq Hx Past Med/Social Hx: Reviewed Nursing Past Med/Soc Hx Patient Social History Alcohol Beverage of Choice: Beer Drug of Choice: Marijuana Type Used: Cigarettes 2nd Hand Smoke Exposure: Yes Recent Foreign Travel: No Contact w/Someone Who Travel: No Recent Infectious Disease Expo: No Recent Hopitalizations: No Seasonal Allergies Seasonal Allergies: No Past Medical History Surgeries: Yes (brain shunt) Appendectomy, Gallbladder, Hysterectomy Respiratory: No Cardiac: No Neurological: No Genitourinary: No Gastrointestinal: No Musculoskeletal: No Endocrine: No HEENT: No Cancer: No Psychosocial: No Integumentary: No Blood Disorders: No Physical Exam Vital Signs Vital Signs - First Documented 08/29/19 11:30 Temp 36.3 Pulse 63 Resp 14 B/P (MAP) 130/86 (101) Pulse Ox 97 O2 Delivery Room Air Capillary Refill : Less Than 3 Seconds Height, Weight, BMI Height: '" Weight: lbs. oz. kg; 21.00 BMI Method: General Appearance: WD/WN, Anxious Eyes: Bilateral Eye PERRL, Bilateral Eye EOMI, Bilateral Eye Other (Lateral nystagmus with fast component to the Left. Fatigues on exam.) HEENT: PERRL/EOMI Neck: Non Tender, Supple Respiratory: Chest Non Tender, Lungs Clear Cardiovascular: Regular Rate, Rhythm Gastrointestinal: Non Tender, Soft Extremity: Normal Inspection, Normal Range of Motion Neurologic/Psychiatric: Alert, Oriented x3, Abnormal pharmacy customer care specialist II-XII; No Motor Weakness, No Sensory Deficit Focused Exam Sepsis Stage: Ruled Out Progress/Results/Core Measures Suspected Sepsis Recent Fever Within 48 Hours: No Infection Criteria Present: None New/Unexplained Altered Menta: No Sepsis Screen: No Definite Risk SIRS Temperature: Pulse: 63 Respiratory Rate: 14 Laboratory Tests 08/29/19 11:44: White Blood Count 11.0 Blood Pressure 130 /86 Mean: 101 Laboratory Tests 08/29/19 11:44: Creatinine 0.71, Platelet Count 344, Total Bilirubin 0.2 Results/Orders Lab Results Laboratory Tests Test 08/29/19 11:44 08/29/19 11:50 Range/Units White Blood Count 11.0 4.3-11.0 10^3/uL Red Blood Count 3.92 L 4.35-5.85 10^6/uL Hemoglobin 12.8 11.5-16.0 G/DL Hematocrit 37 35-52 % Mean Corpuscular Volume 95 80-99 FL Mean Corpuscular Hemoglobin 33 25-34 PG Mean Corpuscular Hemoglobin Concent 35 32-36 G/DL Red Cell Distribution Width 12.7 10.0-14.5 % Platelet Count 344 130-400 10^3/uL Mean Platelet Volume 9.2 7.4-10.4 FL Neutrophils (%) (Auto) 62 42-75 % Lymphocytes (%) (Auto) 28 12-44 % Monocytes (%) (Auto) 6 0-12 % Eosinophils (%) (Auto) 3 0-10 % Basophils (%) (Auto) 1 0-10 % Neutrophils # (Auto) 6.8 1.8-7.8 X 10^3 Lymphocytes # (Auto) 3.1 1.0-4.0 X 10^3 Monocytes # (Auto) 0.6 0.0-1.0 X 10^3 Eosinophils # (Auto) 0.3 0.0-0.3 10^3/uL Basophils # (Auto) 0.1 0.0-0.1 10^3/uL Sodium Level 140 135-145 MMOL/L Potassium Level 4.2 3.6-5.0 MMOL/L Chloride Level 106 98-107 MMOL/L Carbon Dioxide Level 21 21-32 MMOL/L Anion Gap 13 5-14 MMOL/L Blood Urea Nitrogen 13 7-18 MG/DL Creatinine 0.71 0.60-1.30 MG/DL Estimat Glomerular Filtration Rate > 60 BUN/Creatinine Ratio 18 Glucose Level 90 70-105 MG/DL Calcium Level 9.4 8.5-10.1 MG/DL Corrected Calcium 9.1 8.5-10.1 MG/DL Magnesium Level 1.9 1.6-2.4 MG/DL Total Bilirubin 0.2 0.1-1.0 MG/DL Aspartate Amino Transf (AST/SGOT) 18 5-34 U/L Alanine Aminotransferase (ALT/SGPT) 20 0-55 U/L Alkaline Phosphatase 115 40-136 U/L Total Protein 7.1 6.4-8.2 GM/DL Albumin 4.4 3.2-4.5 GM/DL Glucometer 89 70-110 MG/DL My Orders Orders - ELLIE ORDONEZ Achs ACHS (08/29/19 11:39) Cbc With Automated Diff (08/29/19 11:39) Comprehensive Metabolic Panel (08/29/19 11:39) Urinalysis Dipstick Only (08/29/19 11:39) Magnesium (08/29/19 11:39) Ct Head Wo (08/29/19 11:39) Lorazepam Injection (Ativan Injection) (08/29/19 12:00) Ondansetron Injection (Zofran Injectio (08/29/19 12:00) Medications Given in ED Current Medications Medications Dose Ordered Sig/Suhas Route Start Time Stop Time Status Last Admin Dose Admin Lorazepam 1 mg ONCE ONCE IVP 08/29/19 12:00 08/29/19 12:01 DC 08/29/19 12:19 1 MG Ondansetron HCl 4 mg ONCE ONCE IVP 08/29/19 12:00 08/29/19 12:01 DC 08/29/19 12:19 4 MG Vital Signs/I&O 08/29/19 11:30 Temp 36.3 Pulse 63 Resp 14 B/P (MAP) 130/86 (101) Pulse Ox 97 O2 Delivery Room Air Capillary Refill : Less Than 3 Seconds Blood Pressure Mean: 101 Point of Care Testing Finger Stick Blood Glucose: 89 Departure Communication (Admissions) Vertigo with positional component. Imaging and labs reviewed. Symptoms significantly improved with treatment. Impression Primary Impression: Vertigo Additional Impression: Nausea & vomiting Disposition: 01 HOME, SELF-CARE Condition: Stable Departure-Patient Inst. Referrals: SELFRYANNE MD (PCP/Family) Primary Care Physician Patient Instructions: Nausea and Vomiting, Adult (DC), Vertigo (a Type of Dizziness) (DC) Add. Discharge Instructions: Please go home and rest. Take newly prescribed medications as directed. Avoid sudden position changes as you are at risk of worsening symptoms and following. Follow-up with local primary care physician PCP, ENT and [facility] specialists. Return to ED if new or worsening symptoms All discharge instructions reviewed with patient and/or family. Voiced understanding. Scripts Lorazepam (Ativan) 2 Mg Tablet 2 MG PO Q6H for 7 Days, #10 TAB Prov: ELLIE ORDONEZ DO 08/29/19 Ondansetron (Ondansetron Odt) 4 Mg Tab.rapdis 4 MG PO Q6H PRN for NAUSEA/VOMITING-1ST LINE, #10 TAB Prov: ELLIE ORDONEZ DO 08/29/19 ELLIE ORDONEZ DO Aug 29, 2019 13:02
[2019-08-29] MEDS ORDERED: LORA-407 PO (13:14)
[2019-08-29] MEDS ORDERED: ONDA4TAB11 PO (13:14)
[2019-08-29 13:30] VITALS: BP 138/78
== END 2019-08-29 13:28 | disposition home or self-care (01) ==
LOC: EDUNIT# 11:24 → ER FS 11:26
DX: R42 Dizziness and giddiness (principal); Z88.2 Allergy status to sulfonamides; Z88.5 Allergy status to narcotic agent; Z88.1 Allergy status to other antibiotic agents; Z77.22 Contact with and (suspected) exposure to environmental tobacco smoke (acute) (chronic)
CPT/HCPCS: 36415; 70450; 80053; 82962; 83735; 85025

== ENCOUNTER → 2019-11-02 | Outpatient (CLI) | payer MEDICAID ==
[~2019-11-02] MED LIST changes: +LORA-407 PO; +ONDA4TAB11 PO
--- NOTE | 2019-11-02 15:35 | Diagnostic Imaging Report ---
INDICATION: Left wrist pain. Time of exam: 1:56 PM. TECHNIQUE: Three views of the left wrist were obtained. FINDINGS: The distal radius and ulna are intact. The carpus is intact. The metacarpals are unremarkable. No fractures are seen. IMPRESSION: No acute bony abnormality is detected. Dictated by: Dictated on workstation # [id number]
== END ==
LOC: RAD FS 13:44
PROVIDERS: ATTEND Nurse Practitioner
DX: M25.532 Pain in left wrist (principal)
CPT/HCPCS: 73110

== ENCOUNTER 2019-11-03 13:18 | Emergency (ER) | payer MEDICAID ==
[~2019-11-03] VITALS: Ht 172.7 cm; Wt 65.0 kg
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
--- NOTE | 2019-11-03 13:47 | ED General ---
General Chief Complaint: General Problems/Pain Stated Complaint: SLURRED SPEECH Source of Information: Patient, Family History of Present Illness Date Seen by Provider: Nov 03, 2019 Time Seen by Provider: 13:35 Initial Comments presents w (family) concern that she is not acting right today. Was at Physical therapy and having abnormal movements. Family states she "stopped speaking". Hx TBI. Admitted to [facility] for Neuro complaints in August and DC'd on 08/26/2019. Allergies and Home Medications Allergies Coded Allergies: Sulfa (Sulfonamide Antibiotics) (Verified Allergy, Unknown, 08/05/19) codeine (Verified Allergy, Unknown, 08/05/19) levofloxacin (Verified Allergy, Unknown, 08/05/19) Home Medications Lorazepam 2 Mg Tablet, 2 MG PO Q6H Prescribed by: ELLIE ORDONEZ on 08/29/19 1314 Meclizine HCl 25 Mg Tablet, 25 MG PO Q8H Prescribed by: JOE GARVIN on 08/21/19 2331 Ondansetron 4 Mg Tab.rapdis, 4 MG PO Q6H PRN for NAUSEA/VOMITING-1ST LINE Prescribed by: ELLIE ORDONEZ on 08/29/19 1314 Patient Home Medication List Home Medication List Reviewed: Yes Review of Systems Review of Systems Constitutional: no symptoms reported Respiratory: no symptoms reported Cardiovascular: no symptoms reported Gastrointestinal: no symptoms reported Genitourinary: no symptoms reported Musculoskeletal: no symptoms reported Psychiatric/Neurological: See HPI, Other (abnormal movements, dizziness, falling, occasionally doesn't speak) Past Mdymusb-Uoexao-Ycdcdh Hx Past Med/Social Hx: Reviewed Nursing Past Med/Soc Hx Patient Social History Alcohol Beverage of Choice: Beer Drug of Choice: Marijuana Type Used: Cigarettes 2nd Hand Smoke Exposure: Yes Recent Hopitalizations: No Seasonal Allergies Seasonal Allergies: No Past Medical History Surgeries: Yes (brain shunt) Appendectomy, Gallbladder, Hysterectomy Respiratory: No Cardiac: No Neurological: Yes (hydrocephalus, shunt x 3) Genitourinary: No Gastrointestinal: No Musculoskeletal: No Endocrine: No HEENT: No Cancer: No Psychosocial: No Integumentary: No Blood Disorders: No Physical Exam Vital Signs Vital Signs - First Documented 11/03/19 13:20 Temp 36.7 Pulse 68 Resp 18 B/P (MAP) 152/81 (104) Pulse Ox 99 O2 Delivery Room Air Capillary Refill : Height, Weight, BMI Height: '" Weight: lbs. oz. kg; 21.00 BMI Method: General Appearance: No Apparent Distress, WD/WN Eyes: Bilateral Eye PERRL, Bilateral Eye EOMI HEENT: PERRL/EOMI, Normal ENT Inspection Neck: Normal Inspection, Non Tender, Supple Respiratory: Chest Non Tender, Lungs Clear Cardiovascular: Regular Rate, Rhythm, No Edema, Normal Peripheral Pulses Gastrointestinal: Normal Bowel Sounds, No Pulsatile Mass, Non Tender, Soft Extremity: Normal Capillary Refill, Normal Inspection, Non Tender, No Calf Tenderness, No Pedal Edema Neurologic/Psychiatric: Alert, No Motor/Sensory Deficits, Depressed Affect Skin: Normal Color, Warm/Dry Progress/Results/Core Measures Suspected Sepsis SIRS Temperature: Pulse: Respiratory Rate: Laboratory Tests 11/03/19 13:40: White Blood Count 14.3H Blood Pressure / Mean: Laboratory Tests 11/03/19 13:40: Creatinine 0.76, Platelet Count 357, Total Bilirubin 0.3 Results/Orders Lab Results Laboratory Tests Test 11/03/19 13:40 Range/Units White Blood Count 14.3 H 4.3-11.0 10^3/uL Red Blood Count 4.09 L 4.35-5.85 10^6/uL Hemoglobin 13.5 11.5-16.0 G/DL Hematocrit 38 35-52 % Mean Corpuscular Volume 92 80-99 FL Mean Corpuscular Hemoglobin 33 25-34 PG Mean Corpuscular Hemoglobin Concent 36 32-36 G/DL Red Cell Distribution Width 11.9 10.0-14.5 % Platelet Count 357 130-400 10^3/uL Mean Platelet Volume 9.0 7.4-10.4 FL Neutrophils (%) (Auto) 66 42-75 % Lymphocytes (%) (Auto) 26 12-44 % Monocytes (%) (Auto) 6 0-12 % Eosinophils (%) (Auto) 2 0-10 % Basophils (%) (Auto) 1 0-10 % Neutrophils # (Auto) 9.4 H 1.8-7.8 X 10^3 Lymphocytes # (Auto) 3.6 1.0-4.0 X 10^3 Monocytes # (Auto) 0.9 0.0-1.0 X 10^3 Eosinophils # (Auto) 0.2 0.0-0.3 10^3/uL Basophils # (Auto) 0.1 0.0-0.1 10^3/uL Neutrophils % (Manual) 57 % Lymphocytes % (Manual) 31 % Monocytes % (Manual) 9 % Eosinophils % (Manual) 2 % Basophils % (Manual) 0 % Band Neutrophils 1 % Sodium Level 135 135-145 MMOL/L Potassium Level 3.8 3.6-5.0 MMOL/L Chloride Level 102 98-107 MMOL/L Carbon Dioxide Level 20 L 21-32 MMOL/L Anion Gap 13 5-14 MMOL/L Blood Urea Nitrogen 13 7-18 MG/DL Creatinine 0.76 0.60-1.30 MG/DL Estimat Glomerular Filtration Rate > 60 BUN/Creatinine Ratio 17 Glucose Level 97 70-105 MG/DL Calcium Level 9.1 8.5-10.1 MG/DL Corrected Calcium 8.9 8.5-10.1 MG/DL Total Bilirubin 0.3 0.1-1.0 MG/DL Aspartate Amino Transf (AST/SGOT) 15 5-34 U/L Alanine Aminotransferase (ALT/SGPT) 18 0-55 U/L Alkaline Phosphatase 118 40-136 U/L Total Protein 6.9 6.4-8.2 GM/DL Albumin 4.3 3.2-4.5 GM/DL My Orders Orders - ROVENSTINE,JOE L DO Ct Head Wo (11/03/19 13:39) Cbc With Automated Diff (11/03/19 13:39) Comprehensive Metabolic Panel (11/03/19 13:39) Ed Iv/Invasive Line Start (11/03/19 13:39) Manual Differential (11/03/19 13:40) Lorazepam Tablet (Ativan Tablet) (11/03/19 14:10) Vital Signs/I&O 11/03/19 13:20 Temp 36.7 Pulse 68 Resp 18 B/P (MAP) 152/81 (104) Pulse Ox 99 O2 Delivery Room Air Capillary Refill : Progress Note : Progress Note Patient with no acute findings on lab or CT of the head. Chronic changes of the brain noted as well as intact peritoneal shunt. Patient without acute findings on exam, periodically and seemingly volitional movements during evaluation. Seemed to be behavioral in origin, however recommend following PCP in a few days for reevaluation. Patient seen previously by myself with similar presentation and concerns by family. Current status seems to be chronic in nature with some behavioral component as pt will turn her head and twitch her shoulder and neck or throw her arms when frustrated during H&P. Departure Impression Primary Impression: TBI (traumatic brain injury) Qualified Codes: S06.9X0S - Unspecified intracranial injury without loss of consciousness, sequela Additional Impression: Dizziness, nonspecific Disposition: 01 HOME, SELF-CARE Condition: Stable Departure-Patient Inst. Decision time for Depature: 14:47 Referrals: RYANNE ART MD (PCP/Family) Primary Care Physician Patient Instructions: Traumatic Brain Injury Add. Discharge Instructions: see your PCP, Dr Art in 2 to 3 days regarding your recent Movement episodes and dizziness. All discharge instructions reviewed with patient and/or family. Voiced understanding. JOE GARVIN DO Nov 03, 2019 13:47
[2019-11-03 13:51] LABS: BASOPHILS % (AUTO) 1 % (0-10); EOSINOPHILS % (AUTO) 2 % (0-10); HEMATOCRIT 38 % (35-52); HEMOGLOBIN 13.5 G/DL (11.5-16.0); LYMPHOCYTES % (AUTO) 26 % (12-44); MEAN CORPUSCULAR HEMOGLOBIN 33 PG (25-34); MEAN CORPUSCULAR HGB CONC 36 G/DL (32-36); MEAN CORPUSCULAR VOLUME 92 FL (80-99); MONOCYTES % (AUTO) 6 % (0-12); NEUTROPHILS % (AUTO) 66 % (42-75); PLATELET COUNT 357 10^3/uL (130-400); RED CELL DISTRIBUTION WIDTH 11.9 % (10.0-14.5); WHITE BLOOD COUNT 14.3 10^3/uL (4.3-11.0)
[2019-11-03 13:52] LABS: BASOPHILS # (AUTO) 0.1 10^3/uL (0.0-0.1); EOSINOPHILS # (AUTO) 0.2 10^3/uL (0.0-0.3); LYMPHOCYTES # (AUTO) 3.6 X 10^3 (1.0-4.0); MONOCYTES # (AUTO) 0.9 X 10^3 (0.0-1.0); NEUTROPHILS # (AUTO) 9.4 X 10^3 (1.8-7.8)
[2019-11-03 14:05] LABS: BAND NEUTROPHILS 1 %; BASOPHILS % (MANUAL) 0 %; EOSINOPHILS % (MANUAL) 2 %; LYMPHOCYTES % (MANUAL) 31 %; MONOCYTES % (MANUAL) 9 %; NEUTROPHILS % (MANUAL) 57 %
[2019-11-03] MEDS ORDERED: LORazepam 0.5 MG (ATIVAN) TABLET PO STA (14:10)
[2019-11-03 14:11] LABS: POTASSIUM 3.8 MMOL/L (3.6-5.0); SODIUM 135 MMOL/L (135-145)
[2019-11-03 14:12] LABS: ALANINE AMINOTRANSFERASE 18 U/L (0-55); ALBUMIN 4.3 GM/DL (3.2-4.5); ALKALINE PHOSPHATASE 118 U/L (40-136); BILIRUBIN,TOTAL 0.3 MG/DL (0.1-1.0); BUN/CREATININE RATIO 17; CALCIUM 9.1 MG/DL (8.5-10.1); CARBON DIOXIDE 20 MMOL/L (21-32); CHLORIDE 102 MMOL/L (98-107); CREATININE SERUM 0.76 MG/DL (0.60-1.30); GFR ESTIMATED > 60; GLUCOSE 97 MG/DL (70-105); TOTAL PROTEIN 6.9 GM/DL (6.4-8.2)
--- NOTE | 2019-11-03 14:27 | NUR ---
Patient administered Ativan 1 mg p.o. as per physician order. Name of medication and purpose explained. Pt is familiar with it or prescribed it. Pt was asked to give detailed accounts of her day and arriving to ED. Pt reports she has had previous ER visits with inability to communicate but aware of surroundings and then begins to flail arms and turns head away. Pt was re-directed upon display of these sx where Dr Ordoñez in room and pt looks aware and then follows commands and returns to conversation as if no interruption. Pt states, "I was at my first P.T, appt today as I hurt my left knee with a fall of a few weeks ago and at that time I had pain pills and now I am out and I have to see Kevin KINGSLEY to evaluate for Dr Art and now no one writing my pain pills and I do not know which one should be giving them to me." Pt states, "All this happened before they could even do therapy they were just talking to me about my knee."
--- NOTE | 2019-11-03 14:27 | Diagnostic Imaging Report ---
EXAMINATION: CT head without contrast. TECHNIQUE: Multiple contiguous axial images were obtained through the brain without the use of intravenous contrast. All CT scans use one or more of the following dose optimizing techniques: automated exposure control, MA and/or KvP adjustment based on a patient size and exam type, or iterative reconstruction. HISTORY: Abnormal speech. History of traumatic brain injury. COMPARISON: CT head on 08/29/2019. FINDINGS: There is stable configuration of the right frontal and left parietal approach PROGRAM MANAGEMENT SPECIALIST shunts. No evidence of acute hydrocephalus. No large acute territorial ischemia, mass, or hemorrhage. No midline shift. Chronic microvascular disease is seen in the periventricular and subcortical white matter. The basilar cisterns are patent. The orbits are normal. A small amount of fluid is seen in the left maxillary sinus. Mastoid air cells are clear. No soft tissue abnormality is seen. No osseus lesions or fractures are seen. IMPRESSION: 1. No large acute territorial ischemia, mass, or hemorrhage. 2. Stable configuration of the PROGRAM MANAGEMENT SPECIALIST shunts. No evidence of acute hydrocephalus. 3. Fluid level in the left maxillary sinus which can be seen with acute sinusitis. Dictated by: Dictated on workstation # [id number]
[2019-11-03 14:57] VITALS: BP 112/72
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
== END 2019-11-03 14:57 | disposition home or self-care (01) ==
LOC: EDUNIT# 13:18 → ER FS 13:22
DX: S06.9X0A Unspecified intracranial injury without loss of consciousness, initial encounter (principal); Z88.2 Allergy status to sulfonamides; Z88.5 Allergy status to narcotic agent; Z88.1 Allergy status to other antibiotic agents; Z77.22 Contact with and (suspected) exposure to environmental tobacco smoke (acute) (chronic); X58.XXXA Exposure to other specified factors, initial encounter
CPT/HCPCS: 36415; 70450; 80053; 85007; 85027

== ENCOUNTER 2019-11-13 18:33 | Emergency (ER) | payer MEDICAID ==
[~2019-11-13] VITALS: Wt 56.8 kg
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
[2019-11-13 19:11] LABS: BASOPHILS # (AUTO) 0.1 10^3/uL (0.0-0.1); BASOPHILS % (AUTO) 1 % (0-10); EOSINOPHILS # (AUTO) 0.3 10^3/uL (0.0-0.3); EOSINOPHILS % (AUTO) 3 % (0-10); HEMATOCRIT 38 % (35-52); HEMOGLOBIN 13.5 G/DL (11.5-16.0); LYMPHOCYTES % (AUTO) 34 % (12-44); MEAN CORPUSCULAR HEMOGLOBIN 33 PG (25-34); MEAN CORPUSCULAR HGB CONC 36 G/DL (32-36); MEAN CORPUSCULAR VOLUME 93 FL (80-99); MEAN PLATELET VOLUME 9.5 FL (7.4-10.4); MONOCYTES # (AUTO) 0.7 X 10^3 (0.0-1.0); MONOCYTES % (AUTO) 6 % (0-12); NEUTROPHILS # (AUTO) 6.7 X 10^3 (1.8-7.8); NEUTROPHILS % (AUTO) 57 % (42-75); PLATELET COUNT 298 10^3/uL (130-400); WHITE BLOOD COUNT 11.9 10^3/uL (4.3-11.0)
[2019-11-13 19:24] LABS: CARBON DIOXIDE 19 MMOL/L (21-32); CHLORIDE 101 MMOL/L (98-107); POTASSIUM 3.4 MMOL/L (3.6-5.0); SODIUM 135 MMOL/L (135-145)
[2019-11-13 19:25] LABS: ALANINE AMINOTRANSFERASE 26 U/L (0-55); ALBUMIN 4.3 GM/DL (3.2-4.5); ALKALINE PHOSPHATASE 113 U/L (40-136); BILIRUBIN,TOTAL 0.4 MG/DL (0.1-1.0); BUN/CREATININE RATIO 14; CALCIUM 9.5 MG/DL (8.5-10.1); CREATININE SERUM 0.88 MG/DL (0.60-1.30); GFR ESTIMATED > 60; GLUCOSE 94 MG/DL (70-105)
[2019-11-13 19:30] VITALS: BP 117/72
== END 2019-11-13 19:36 | disposition home or self-care (01) ==
LOC: EDUNIT# 18:33 → ER FS 18:34
DX: S06.9X0A Unspecified intracranial injury without loss of consciousness, initial encounter (principal); G25.9 Extrapyramidal and movement disorder, unspecified; F17.210 Nicotine dependence, cigarettes, uncomplicated; Z88.2 Allergy status to sulfonamides; Z88.5 Allergy status to narcotic agent; Z88.1 Allergy status to other antibiotic agents; X58.XXXA Exposure to other specified factors, initial encounter
CPT/HCPCS: 36415; 80053; 85025; 99281

== ENCOUNTER 2019-12-27 11:31 | Emergency (ER) | payer MEDICAID ==
[~2019-12-27] VITALS: Ht 172.7 cm; Wt 64.5 kg
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
[2019-12-27] MEDS ORDERED: PENI500T PO (11:48)
[2019-12-27] MEDS ORDERED: ACHD5005 PO (11:48)
[2019-12-27 11:50] VITALS: BP 125/90
== END 2019-12-27 11:50 | disposition home or self-care (01) ==
LOC: EDUNIT# 11:31 → ER FS 11:33
DX: K08.89 Other specified disorders of teeth and supporting structures (principal); Z87.820 Personal history of traumatic brain injury; Z77.22 Contact with and (suspected) exposure to environmental tobacco smoke (acute) (chronic); Z88.2 Allergy status to sulfonamides; Z88.5 Allergy status to narcotic agent; Z88.1 Allergy status to other antibiotic agents
CPT/HCPCS: 99282

== ENCOUNTER → 2020-01-11 | Outpatient (CLI) | payer MEDICAID ==
[~2020-01-11] MED LIST changes: +PENI500T PO
--- NOTE | 2020-01-11 10:47 | Diagnostic Imaging Report ---
INDICATION: Back pain. TIME OF EXAM: 10:25 AM. TECHNIQUE: Multiple views of the thoracic spine were obtained. FINDINGS: The curvature and alignment of the thoracic spine are normal. The vertebral body heights are maintained. No acute compression fracture is identified. The pedicles and paraspinous line are intact. Tubing overlies the left hemithorax and is coiled in the upper abdomen, likely a [facility] shunt. IMPRESSION: No acute bony abnormality is detected. Dictated by: Dictated on workstation # [id number]
== END ==
LOC: RAD FS 10:18
PROVIDERS: ATTEND Nurse Practitioner Family
DX: M54.6 Pain in thoracic spine (principal)
CPT/HCPCS: 72072

== ENCOUNTER 2020-03-05 18:15 | Emergency (ER) | payer MEDICAID ==
[~2020-03-05] VITALS: Ht 172 cm; Wt 65.0 kg
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
[2020-03-05 18:23] VITALS: BP 125/98
[2020-03-05] MEDS ORDERED: PENI500T PO (18:34)
== END 2020-03-05 18:35 | disposition home or self-care (01) ==
LOC: EDUNIT# 18:15 → ER FS 18:16
DX: K08.89 Other specified disorders of teeth and supporting structures (principal); Z87.820 Personal history of traumatic brain injury; Z77.22 Contact with and (suspected) exposure to environmental tobacco smoke (acute) (chronic); Z88.5 Allergy status to narcotic agent; Z88.2 Allergy status to sulfonamides; Z88.1 Allergy status to other antibiotic agents
CPT/HCPCS: 99282

== ENCOUNTER 2021-01-07 19:04 | Emergency (ER) | payer MEDICAID ==
[~2021-01-07] VITALS: Ht 172.7 cm; Wt 66.4 kg
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
--- OUTSIDE RECORDS SUMMARY | 2021-01-07 19:10 | XMS REPORT | Clinical Summary ---
Author Author [facility] Organization [facility] Address Unknown Phone Unavailable Care Team Providers Care Casting And Locker Room Servicer Name Role Phone Opal Serna RN Unavailable Unavailable Dallas Koch MD Unavailable Caren Alaniz MD 100 Drew Jain MD Unavailable Adrianna Stacy MD Unavailable Addison Vazquez RN Unavailable Unavailable Cameron Dorado MD Unavailable Unavailable Verenice Peters MD Unavailable Krystal Villalba MD Unavailable Chela Carrasco RN Unavailable Unavailable Gloria Edmondson RN Unavailable Unavailable My Vasquez RN Unavailable Unavailable Ingrid Weathers MD Unavailable Unavailable Esdras Heller DO Unavailable Unavailable Kevin Christopher MD Unavailable Felisa House MD Unavailable Unavailable ArMariann pearson HARDENING MACHINE OPERATOR HELPER-VOLUNTEER SERVICES SUPERVISOR Unavailable Sanjiv Art MD PCP Source Comments Some departments are not documenting in the electronic medical record. If you d o not see the information that you expected, contact Release of Information in [facility] Health Information Management department at [phone] for further assistan ce in locating additional records.[facility] Allergies Comments Active Allergy Reactions Severity Noted Date Codeine ITCHING Low 12/11/2009 Latex ITCHING Low 12/11/2009 Levofloxacin ANAPHYLAXIS High 12/11/2009 Paprika SHORTNESS OF Medium 12/11/2009 BREATH Sulfa (Sulfonamide ITCHING Low 12/11/2009 Antibiotics) Medications End Date Status Medication Sig Dispensed Refills Start Date Active acetaminophen (TYLENOL) Take 1,000 mg 0 500 mg tablet by mouth every 6 hours as needed for Pain. Active ondansetron (ZOFRAN ODT) Take 4 mg by 0 4 mg rapid dissolve mouth every 8 tablet hours as needed for Nausea. Active cetirizine (ZYRTEC) 10 mg Take 10 mg by 0 tablet mouth daily. Active promethazine (PHENERGAN) Insert or 30 Each 1 0 25 mg rectal suppository Apply 1 6 Suppository to rectal area as directed every 8 hours as needed for Nausea. Active levothyroxine (SYNTHROID) Take 88 mcg 0 88 mcg tablet by mouth daily 30 minutes before breakfast. Active fluticasone (FLONASE) 50 Apply 1 spray 0 mcg/actuation nasal spray to each nostril as directed daily. Shake bottle gently before using. Active spironolactone Take 50 mg by 0 (ALDACTONE) 100 mg tablet mouth twice daily. Take with food. Active montelukast (SINGULAIR) Take 10 mg by 0 10 mg tablet mouth at bedtime daily. Active traZODone (DESYREL) 100 Take 100 mg 0 mg tablet by mouth at bedtime daily. Active celecoxib (CELEBREX) 200 Take 200 mg 0 04/24 /201 mg capsule by mouth 9 twice daily. Active modafinil (PROVIGIL) 200 Take 200 mg 0 mg tablet by mouth daily. Active cyclobenzaprine Take one-half 90 tablet 0 08/26/19 2 (FLEXERIL) 10 mg tablet by 0 tabletIndications: mouth three Syncope and collapse, times daily Palpitations as needed. Active diazePAM (VALIUM) 5 mg Take one-half 0 02 tablet tablet to one 0 tablet by mouth every 12 hours as needed. Active cyanocobalamin 1,000 mcg Take one 150 tablet 0 0 tablet tablet by 0 mouth daily. Active atorvastatin (LIPITOR) 40 Take 80 mg by 0 03/1 3/201 mg tablet mouth daily. 9 Active pseudoephedrine HCl Take by 0 (SUDAFED 12 HOUR PO) mouth. Active duloxetine DR (CYMBALTA) Take two 30 capsule 3 0 30 mg capsule capsules by 0 mouth daily. Active atorvastatin (LIPITOR) 80 Take 80 mg by 0 mg tablet mouth daily. Active albuterol 0.5% Inhale 2.5 mg 0 (PROVENTIL) 2.5 mg/0.5 mL solution by nebulizer solution nebulizer as directed every 6 hours as needed for Shortness of Breath or Wheezing. Active diazePAM (VALIUM) 10 mg Take 10 mg by 0 tablet mouth every 8 hours as needed for Anxiety. Active diclofenac sodium Apply 0 (SOLARAZE) 3 % gel topically to affected area daily. Active duloxetine DR (CYMBALTA) Take 60 mg by 0 60 mg capsule mouth daily. Active HYDROcodone/acetaminophen Take 1 tablet 0 (NORCO) 5/325 mg tablet by mouth every 6 hours as needed for Pain Active spironolactone Take 50 mg by 0 (ALDACTONE) 50 mg tablet mouth twice daily. Take with food. Active hydroCHLOROthiazide Take one 90 tablet 3 (HYDRODIURIL) 25 mg tablet by 1 tablet mouth every morning. Active Problems Problem Noted Date Hearing loss, neural 11/03/2020 Meniere's disease of both ears 11/03/2020 Altered awareness, transient 10/21/2020 Dizziness 10/04/2020 Overview: Formatting of this note might be differ ent from the original. ENT rotary chair pending September 2020 Falls 08/25/2019 Toxic encephalopathy 08/25/2019 Anxiety 08/25/2019 B12 deficiency 08/25/2019 Colon cancer screening 10/19/2016 Overview: Formatting of this note might be differ ent from the original. Added automatically from request for carlos fernando [id number] Family hx of colon cancer 10/19/2016 Overview: Formatting of this note might be differ ent from the original. Added automatically from request for carlos fernando [id number] Chest pain 09/02/2015 Last Assessment & Plan: Formatting of this note might be differ ent from the original. She voices no complaints of chest pain or shortness of breath today. Her only complaints to me are that of her f requent falls due to a history of hydrocephalus. She is going to follow up with her neurologist and PCP. Acquired planovalgus deformity of left foot 07/25/19 16 Memory loss due to medical condition 08/23/2014 Mood disorder 08/23/2014 Myalgia and myositis, unspecified 07/19/2014 Abdominal adhesions 03/29/2014 Chronic abdominal pain 02/25/2014 Chronic pelvic pain in female 02/25/2014 Syncope 10/14/2013 Last Assessment & Plan: Formatting of this note might be differ ent from the original. Krystal has had no further syncope. Sh e denies dizziness. We will continue to monitor her closely. Palpitations 11/14/2010 Last Assessment & Plan: Formatting of this note might be differ ent from the original. She is complaining of worsening palpita tions and dizziness. She reports heart rates up to 110 bpm by her pulse oximeter. It is difficult for me to get a good id ea of her palpitations. It sounds like she did not start having these epi sodes until she was given the pulse oximeter and told her heart rates were fast. In the office today, she is sinus in the 70s. I had like Kaur to undergo another 48- hour Holter monitor to get a better idea of these heart rates and times whe n she feels her heart is racing. She has had an echo done in August that s howed normal LV function and no regional wall motion abnormalities. Ba sed on the results of her monitor, we can consider any changes in her medi cations. Syncope and collapse 06/13/2010 Overview: Formatting of this note might be differ ent from the original. 05/26 Echo: Normal EF 55% No significant valvular stenosis or reg urgitation No significant pericardial effusion Normal diastolic function Normal PA sys tolic pressure 07/27/10 ROSANNA: Head up tilt table test n egative for vasovagal syncope. The patient was unable to stand for the dur ation of the test, thus the test was concluded prematurely. 07/27/10 ILR Implant: [employer] REVEAL D X [id number] SN# [id number] IMPLANTED 10/14/13 Removal Implantable Loop Record er 06/28/14 Regadenoson Thallium: This stud y is probably normal. There is a small defect involving the inferolatera l wall which is predominantly fixed with some reversed redistribution. The wall motion in this area is preserved. It probably represents breas t attenuation artifact. A definite ischemic change is not appreciated. The left ventricular systolic function is normal with a calculated ejection fr action of 60 percent, end diastolic volume is normal at 56 mL and pulmonary to myocardial count ratio is normal at 0.26. There is no transient ischemic dilatation present. 08/25/2019 - ECHO: Normal chamber size s. Normal left ventricular systolic function with EF = 55% and normal diast olic function. Normal cardiac valve structure and function. Pulmonary sarina ry systolic pressure cannot be estimated due to inadequate TR jet. L ast Assessment & Plan: Formatting of this note might be differ ent from the original. She has had no further syncope. Mrs. Antelmo mathias continues to complain of gait instability and frequent falls. She do esn't have any symptoms of palpitations associated with her sympto ms. We will continue to follow her clinically. Hydrocephalus 12/11/2009 Last Assessment & Plan: Formatting of this note might be differ ent from the original. This is apparently stable. There are n o plans for further shunt revisions. I agree that given her extensive neurol ogic history, the likelihood that her symptoms are due to seizure is much higher than a cardiac cause. S/P BILL CUTTER shunt 12/11/2009 Resolved Problems Problem Noted Date Resolved Date Sensorineural hearing loss (SNHL) of left ear with un restricted hearing of 10/04/2020 11/03/2020 right ear Overview: Formatting of this note might be differ ent from the original. Progressive documented (scanned) since 2018 Granulation tissue of vaginal cuff 11/15/201406/2015 Preoperative clearance 06/28/2014 08/02/2014 Last Assessment & Plan: Formatting of this note might be differ ent from the original. Mrs. Ramirez is going to be undergoing hy sterectomy in the near future. Her last echo in 2010 showed normal LV func tion. Mrs. Ramirez denies any chest discomfort or shortness of breath altho ugh she does admit that she doesn't do much. I have asked her to undergo t hallium stress testing. If her thallium shows normal LV function witho ut evidence of ischemia, then I think she is at low peroperative risk f or cardiovascular complications. Cervical stenosis (uterine cervix) 03/29/201406/2014 Abnormal uterine bleeding 02/25/2014 07/19/2014 Encounters Care Team Description Date Type Specialty Boo Ceron Jr., DO Idiopathic polyneuropathy (Primary Dx) 12/27/2020 Office Visit Neurology 12/27/2020 Travel Merle Mathis MD Meniere's disease of both ears (Primary Dx); Vertigo; Hearing loss, neural; Encounter for screening laboratory testing for COVID-19 virus in asymptomatic patient 12/16/2020 Prep for Case Merle Mathis MD Koehler, Rachel A, AUD Sensorineural hearing loss, bilateral (P rimary Dx) 12/08/2020 Clinical Otolaryngology Support Merle Mathis MD Meniere's disease of both ears (Primary Dx); Hearing loss, neural; Dizziness 12/08/2020 Office Visit Otolaryngology Merle Mathis MD Maddux, Christy A, AUD Meniere's disease of right ear (Primary Dx) 12/08/2020 Clinical Otolaryngology Support 12/08/2020 Travel Merle Mathis MD Dizziness (Primary Dx); Meniere's disease of both ears; Hearing loss, neural 11/03/2020 Office Visit Otolaryngology Merle Mathis MD Lad, Lindsay K, AGAPITO Sensorineural hearing loss of both ears (Primary Dx) 11/03/2020 Clinical Otolaryngology Support Boo Ceron Jr., DO Follow-up Phone Call 11/03/2020 Telephone Neurology 11/03/2020 Chase Alvarado MD Altered awareness, transient 10/20/2020 Hospital - Encounter 10/24/2020 10/20/2020 Travel Chase Scruggs MD Pre-Visit Planning (vEEG on 10/20/20) 10/13/2020 Telephone Neurology from Last 3 Months Surgical History Surgery Date Site/Laterality Comments APPENDECTOMY ECTOPIC SURGERY laparoscopy CHOLECYSTECTOMY HX WISDOM TEETH EXTRACTION COLONOSCOPY HEMORRHOIDECTOMY 03/18/2012 - 03/17/2013 COSMETIC SURGERY LAPAROSCOPY ectopic, lysis of adhesion, appendectomy, gall bladder ABDOMINAL EXPLORATION 01/16/2014 failed laparosco pic and open hysterectomy due to SURGERY - scar tissue 02/14/2014 SHUNT REVISION multiple brain shunts (10) CARDIAC SURGERY "recorder placed and remove d" HX HYSTERECTOMY 07/06/14 COLONOSCOPY 04/30/2016 N/A COLONOSCOPY per formed by Stiven Thomas MD at ENDO/GI VENTRICULOSTOMY 03/18/2009 - 03/17/2010 Medical History Medical History Date Comments S/P BILL CUTTER shunt Hydrocephalus (HCC) aqua ductal stenosis Hypothyroidism Christen's has not taken m edication for years, unknown recent TSH IBS (irritable bowel syndrome) Asthma takes albuterol on occasion , has not needed for a few months, never hospitalized or intub ated as a result. Anxiety Personal history of colonic polyps Syncope and collapse 06/13/2010 Migraines Diplopia Family History Medical History Relation Name Comments Asthma Brother Cancer Father cabag Cancer-Colon Father cabag Heart Disease Father cabag Heart Disease Maternal Grandfather Aneurysm Maternal Grandmother Heart Disease Maternal Grandmother Heart Disease Mother High Cholesterol Mother Other Mother Thyroid Disease Mother Cancer-Colon Paternal Grandmother Stroke Paternal Grandmother Seasonal Allergies Son Relation Name Status Comments Brother Alive Father cabag Alive Maternal Grandfather Maternal Grandmother Mother Alive Paternal Grandfather Paternal Grandmother Son Alive Social History Date Tobacco Use Types Packs/Day Years Used Former Smoker Cigarettes 0.1 17 Smokeless Tobacco: Never Used Tobacco Cessation: Counseling Given: Yes Comments Alcohol Use Standard Drinks/Week 1-2 per month Yes 1 (1 standard drink = 0.6 o z pure alcohol) Alcohol Habits Answer Date Recorded How often do you have a drink containing alcohol? No t asked How many drinks containing alcohol do you have on No t asked a typical day when you are drinking? How often do you have six or more drinks on one Not asked occasion? Comment: 1-2 per month 09/29/2019 Sex Assigned at Date Recorded Female 09/29/2019 8:29 AM CDT Date Recorded COVID-19 Exposure Response 12/27/2020 11:01 AM CDT In the last month, have you been in contact with No / Unsure someone who was confirmed or suspected to have Coronavirus / COVID-19? Obstetrics History Term Pre Abrt (TAB) (SAB) (Ect) Mult Lvng Comments Grav Para 1 4 2 1 1 1 5 1 Date GA Total Labor Labor/2nd/3rd Weight Sex Delivery Anes PTL Chen A1 A5 Name Clin Outcome TAB TAB Ectopic SAB 06/08/1999 M Spontaneous Epidural Living Last Filed Vital Signs Reading Time Taken Comments Vital Sign 103/70 12/27/2020 11:12 AM CDT Blood Pressure 77 12/27/2020 11:12 AM CDT Pulse 36.7 C (98.1 F) 12/27/2020 11:12 AM CDT Temperature 14 11/19/2019 10:19 AM CDT Respiratory Rate 97% 12/27/2020 11:12 AM CDT Oxygen Saturation - - Inhaled Oxygen Concentration 65.3 kg (144 lb) 12/27/2020 11:12 AM CDT Weight 172.7 cm (5' 8") 12/27/2020 11:12 AM CDT Height 21.9 12/27/2020 11:12 AM CDT Body Mass Index Plan of Treatment Care Team Description Date Type Specialty Merle Mathis MD [address] [facility] [address] [place] [id number] [phone] Meniere's disease of both ears 02/28/2021 Hospital Encounter Merle Mathis MD [address] [facility] [address] [place] [address] [phone] DECOMPRESSION ENDOLYMPHATIC SAC WITH ASHWIN NT 02/28/2021 Surgery Health Maintenance Due Date Last Done Comments HIV SCREENING 06/30/1982 DTAP/TDAP VACCINES (1 - 06/30/1985 Tdap) HEPATITIS C SCREENING 06/30/1985 PHYSICAL (COMPREHENSIVE) 06/30/1985 EXAM BREAST CANCER SCREENING 2007 CERVICAL CANCER SCREENING 03/24/2017 03/24/2014 SHINGLES RECOMBINANT 06/30/2017 VACCINE (1 of 2) INFLUENZA VACCINE 10/16/2020 04/12/2016 COLORECTAL CANCER 04/30/2026 04/30/2016, SCREENING 04/30/2016 Goals Goal Patient Associated Recent Progress Patient-Stat Aut hor Goal Type Problems ed? Remain independent Hospital On track (10/20/2020 Yes Giselle Enciso, 6:31 PM CDT) RN Note: "To get better and stay as healthy as possible, and be able to take care of myself" Implants Device Identifier Shelf Expiration Date Model / Serial / L ot Implanted Type Area Manufactur er [employer] Shunt Shunt Description:non working Procedures Comments Procedure Name Priority Date/Time Associated Diag nosis AUDIOMETRY WITH Routine 12/08/2020 Meniere's dise ase of TYMPANOMETRY right ear AUDITORY FUNCTION TESTS Routine 11/03/2020 Sensor ineural hearing loss of both ears EEG DEPARTMENT ORDER Routine 10/21/2020 10:11 AM CDT COVID-19 (SARS-COV-2) PCR Routine 10/20/2020 12:27 PM CDT CONSULT IV THERAPY TEAM Routine 10/20/2020 12:23 PM CDT HC COMPREHENSIVE Routine 10/20/2020 METABOLIC PANEL 12:22 PM CDT HC CBC,AUTOMATED Routine 10/20/2020 12:22 PM CDT TELEMETRY STRIPS-SCAN 10/20/2020 12:00 AM CDT TELEMETRY STRIPS-SCAN 10/20/2020 12:00 AM CDT TELEMETRY STRIPS-SCAN 10/20/2020 12:00 AM CDT TELEMETRY STRIPS-SCAN 10/20/2020 12:00 AM CDT TELEMETRY STRIPS-SCAN 10/20/2020 12:00 AM CDT TELEMETRY STRIPS-SCAN 10/20/2020 12:00 AM CDT TELEMETRY STRIPS-SCAN 10/20/2020 12:00 AM CDT from Last 3 Months Results * AUDIOMETRY WITH TYMPANOMETRY (12/08/2020) Narrative Performed At This result has an attachment that is n ot available. Performing Organization Address City/State/ZIP Code P danial Number IN CLINIC * AUDITORY FUNCTION TESTS (11/03/2020) Narrative Performed At This result has an attachment that is n ot available. Performing Organization Address City/State/ZIP Code P danial Number IN CLINIC * EEG DEPARTMENT ORDER (10/21/2020 10:11 AM CDT) Narrative Performed At Chase Scruggs MD 10/21/2020 10:20 AM PATIENT NAME: Krystal Ramirez DATE OF : 1965 MR#: [id number] START DATE: 10/20/20 END DATE: 10/21/20 START TIME:1:30 pm END TIME: 7:00 am REQUESTING PHYSICIAN: Dr. Ceron MEDICATIONS: Current Facility-Administered Medicatio ns: acetaminophen (TYLENOL EXTRA STRENGTH ) tablet 1,000 mg, 1,000 mg, Oral, Q6H PRN, Hari Paz, AP RN-VOLUNTEER SERVICES SUPERVISOR atorvastatin (LIPITOR) tablet 80 mg, 80 mg, Oral, QDAY, Hari Paz, HARDENING MACHINE OPERATOR HELPER-VOLUNTEER SERVICES SUPERVISOR, 80 mg at 09/05 0858 celecoxib (CeleBREX) capsule 200 mg, 200 mg, Oral, BID, Hari Paz, HARDENING MACHINE OPERATOR HELPER-VOLUNTEER SERVICES SUPERVISOR, 200 mg at 0859 cetirizine (ZyrTEC) tablet 10 mg, 10 mg, Oral, QDAY, Hari Paz, HARDENING MACHINE OPERATOR HELPER-VOLUNTEER SERVICES SUPERVISOR, 10 mg at 10/21/20 08 57 cyanocobalamin (VITAMIN B-12) tablet 1,000 mcg, 1,000 mcg, Oral, QDAY, Hari Paz, HARDENING MACHINE OPERATOR HELPER-VOLUNTEER SERVICES SUPERVISOR, 1,000 mcg at 10/21/20 0857 cyclobenzaprine (FLEXERIL) tablet 5 m g, 5 mg, Oral, TID PRN, Hari Paz, HARDENING MACHINE OPERATOR HELPER-VOLUNTEER SERVICES SUPERVISOR, 5 mg at 08/0 08/05 184 diazePAM (VALIUM) tablet 2.5 mg, 2.5 mg, Oral, TID PRN, Hari Paz, HARDENING MACHINE OPERATOR HELPER-VOLUNTEER SERVICES SUPERVISOR, 2.5 mg at [address] (CYMBALTA) capsule 60 m g, 60 mg, Oral, QDAY, Hari Paz, HARDENING MACHINE OPERATOR HELPER-VOLUNTEER SERVICES SUPERVISOR, 60 mg at 09/05 0858 fluticasone propionate (FLONASE) nasa l spray 1 spray, 1 spray, Each Nostril, QDAY, Hari Paz, A PRN-VOLUNTEER SERVICES SUPERVISOR, 1 spray at 10/21/20 0859 levothyroxine (SYNTHROID) tablet 88 m cg, 88 mcg, Oral, QDAY 30 min before breakfast, Hari Paz, HARDENING MACHINE OPERATOR HELPER-VOLUNTEER SERVICES SUPERVISOR, 88 mcg at 10/21/20 0551 modafiniL (PROVIGIL) tablet 200 mg, 2 00 mg, Oral, QDAY, Hari Paz, HARDENING MACHINE OPERATOR HELPER-VOLUNTEER SERVICES SUPERVISOR, 200 mg at 0857 montelukast (SINGULAIR) tablet 10 mg, 10 mg, Oral, QHS, Hari Paz, HARDENING MACHINE OPERATOR HELPER-VOLUNTEER SERVICES SUPERVISOR, 10 mg at 08/05 spironolactone (ALDACTONE) tablet 50 mg, 50 mg, Oral, BID, Hari Paz, HARDENING MACHINE OPERATOR HELPER-VOLUNTEER SERVICES SUPERVISOR, 50 mg at 09/05 0858 traZODone (DESYREL) tablet 50 mg, 50 mg, Oral, QHS, Hari Paz, HARDENING MACHINE OPERATOR HELPER-VOLUNTEER SERVICES SUPERVISOR, 50 mg at 10/20/20 20 10 TECHNIQUE: This 24-hour video EEG mon itoring was performed on a 32-channel digital recording device. The 10-[employer] Electrode Placement System was used wit h addition of T1 and T2 electrodes. This 24-hour video EEG is requested for this 55 year-old woman with a purpose of spell characterizatio n, and seizure onset lateralization and localization. She meza d spells presenting as loss of awareness and difficulty to [place] k in October 2019. She also has spells where she has loss of balanc e, disorientation, and falling down. There was no push button activation and no clinical or electrographic seizure activity capture d during this recording. During quite wakefulness there was 11 H z, reactive alpha rhythm. During drowsiness there was waxing and waning of the alpha rhythm and emergence of diffusely distributed theta activity. Stage II sleep was marked by vertex sharp waves, K-complexes and sleep spindles.There were also episodes of sl ow wave sleep. There was diffusely distributed beta ac tivity. IMPRESSION: This 17.5-hour video EEG monitoring did not capture any clinical, or electrographic seizure activity. Diffusely distributed beta activity is due to pha rmacologic effect of the benzodiazepines.Continued monitoring is recommended to capture the patient's spells of concern and loc yinka the seizure onset. Chase Scruggs MD Parole Officer [facility] Department of Neurology * COVID-19 (SARS-COV-2) PCR (10/20/2020 12:27 PM CDT) COVID-19 FLOCKED SWAB [facility] (SARS-CoV-2) NASOPHARYNGEAL PCR Source COVID-19 NOT DETECTED DN-NOT DETECTED [facility] (SARS-CoV-2) Comment: PCR This assay is designed to detect the N2 and E genes of SARS-CoV-2 using nucleic acid amplification. A Not Detected result does not preclude the possibility of SARS-CoV-2 infection since the adequacy of sample collection and/or low viral burden may result in the presence of viral nucleic acids below the analytical sensitivity of this test method. Test results should be used along with other clinical and laboratory data in making the diagnosis. Test parameters have not been validated for screening in asymptomatic patients. This test has not been FDA cleared or approved. This test is authorized for use under the FDA Emergency Use Authorization and performance characteristics have been verified by the [facility] clinical laboratory. Fact sheet for providers: https://www.fda.gov/media/1363 13/download Fact sheet for patients: https://www.fda.gov/media/8413 12/download Specimen Flocked Swab - Nasopharyngeal Performing Organization Address City/State/ZIP Code P danial Number [facility] [address] [place] [address] * CBC (10/20/2020 12:22 PM CDT) [facility] White Blood 10.6 4.5 - 11.0 K/UL [facility] Cells RBC 3.92 (L) 4.0 - 5.0 M/UL [facility] Hemoglobin 13.1 12.0 - 15.0 GM/DL [facility] Hematocrit 37.8 36 - 45 % [facility] MCV 96.4 80 - 100 FL [facility] MCH 33.4 26 - 34 PG [facility] MCHC 34.7 32.0 - 36.0 G/DL [facility] RDW 13.3 11 - 15 % [facility] Platelet Count 301 150 - 400 K/UL [facility] MPV 8.4 7 - 11 FL [facility] Specimen Blood Performing Organization Address City/[facility] P danial Number [facility] [address] [place] [address] * COMPREHENSIVE METABOLIC PANEL (10/20/2020 12:22 PM CDT) [facility] Sodium 136 (L) 137 - 147 MMOL/L [facility] Potassium 4.9Comment: SLT HEMOLYSIS 3.5 - 5.1 MMOL/L [facility] Chloride 104 98 - 110 MMOL/L [facility] Glucose 80 70 - 100 MG/DL [facility] Blood Urea 17 7 - 25 MG/DL [facility] Nitrogen Creatinine 0.95 0.4 - 1.00 MG/DL [facility] Calcium 9.0 8.5 - 10.6 MG/DL [facility] Total Protein 7.2 6.0 - 8.0 G/DL [facility] Total Bilirubin 0.5 0.3 - 1.2 MG/DL [facility] Albumin 4.3 3.5 - 5.0 G/DL [facility] Alk Phosphatase 112 (H) 25 - 110 U/L [facility] AST (SGOT) 22 7 - 40 U/L [facility] CO2 24 21 - 30 MMOL/L [facility] ALT (SGPT) 17 7 - 56 U/L [facility] Anion Gap 8 3 - 12 [facility] eGFR Non >60 >60 mL/min [facility] Comment: [place] The eGFR is not validated f or use in drug dosing adjustments. Continue to use estimated creatinine clearance per dosing reference text. Please contact the Clinical Pharmacist for questions. eGFR >60 >60 mL/min [facility] [place] Comment: The eGFR is not validated for use in drug dosing adjustments. Continue to use estimated creatinine clearance per dosing reference text. Please contact the Clinical Pharmacist for questions. Specimen Blood Performing Organization Address City/State/ZIP Code P danial Number [facility] [address] [place] [address] * TELEMETRY STRIPS-SCAN (10/20/2020 12:00 AM CDT) Narrative Performed At This result has an attachment that is n ot available. Ordered by an unspecified provider. * TELEMETRY STRIPS-SCAN (10/20/2020 12:00 AM CDT) Narrative Performed At This result has an attachment that is n ot available. Ordered by an unspecified provider. * TELEMETRY STRIPS-SCAN (10/20/2020 12:00 AM CDT) Narrative Performed At This result has an attachment that is n ot available. Ordered by an unspecified provider. * TELEMETRY STRIPS-SCAN (10/20/2020 12:00 AM CDT) Narrative Performed At This result has an attachment that is n ot available. Ordered by an unspecified provider. * TELEMETRY STRIPS-SCAN (10/20/2020 12:00 AM CDT) Narrative Performed At This result has an attachment that is n ot available. Ordered by an unspecified provider. * TELEMETRY STRIPS-SCAN (10/20/2020 12:00 AM CDT) Narrative Performed At This result has an attachment that is n ot available. Ordered by an unspecified provider. * TELEMETRY STRIPS-SCAN (10/20/2020 12:00 AM CDT) Narrative Performed At This result has an attachment that is n ot available. Ordered by an unspecified provider. 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 Explanation Type Date Recorded Advance 10/14/2013 9:26 AM Directive/DPOA Advance Directives 10/27/2012 9:02 AM and Living Will Advance Directives 09/10/2012 4:03 PM and Living Will Advance Directives 08/14/2012 8:41 AM and Living Will Advance Directives 07/04/2012 3:15 PM and Living Will Advance Directives 08/23/2011 12:02 PM and Living Will Advance Directives 04/30/2011 12:00 AM and Living Will Advance Directives 02/22/2011 12:00 AM and Living Will Advance Directives 01/10/2011 12:00 AM and Living Will Advance Directives 12/25/2010 12:00 AM and Living Will Advance Directives 10/27/2010 12:00 AM and Living Will Advance Directives 08/30/2010 12:00 AM and Living Will Advance Directives 07/28/2010 12:00 AM and Living Will Advance Directives 07/17/2010 12:00 AM and Living Will Advance Directives 06/23/2010 12:00 AM and Living Will Advance Directives 06/12/2010 12:00 AM and Living Will Advance Directives 05/01/2010 12:00 AM and Living Will Advance Directives 04/12/2010 12:00 AM and Living Will Date Inactivated Comments Code Status Date Activated 10/24/2020 2:54 PM Full Code 10/20/2020 12:06 PM Provider has discussed Code Status Yes w/Patient or Family? 08/26/2019 5:44 PM Full Code 08/24/2019 9:15 PM Provider has discussed Code Status Yes w/Patient or Family? 07/07/2014 3:39 PM Full Code 07/06/2014 6:26 PM Provider has discussed Code Status Yes w/Patient or Family? 10/14/2013 6:32 PM Full Code 10/14/2013 9:37 AM Provider has discussed Code Status No, more discussi on w/Patient or Family? needed 07/28/2010 5:30 AM Full Code 07/27/2010 10:56 AM Provider has discussed Code Status Yes w/Patient or Family?
--- OUTSIDE RECORDS SUMMARY | 2021-01-07 19:10 | XMS REPORT | Encounter Summary ---
Author Author [facility] Organization [facility] Address Unknown Phone Unavailable Care Team Providers Care Cash Analyst Name Role Phone Opal Serna RN Unavailable [...] MD Unavailable Felisa House MD Unavailable Unavailable Mariann Aguirre LOT BOSS-AGRICULTURAL SALES REPRESENTATIVE Unavailable Sanjiv Art MD PCP Encounter Details Care Team Description Date Type Department 12/27/2020 Travel Social History Date Tobacco Use Types Packs/Day Years Used Former Smoker Cigarettes 0.1 17 Smokeless Tobacco: Never Used Comments Alcohol Use Standard Drinks/Week 1-2 per [...] or suspected to have Coronavirus / COVID-19? documented as of this encounter Functional Status Date of Assessment Functional Status Response 12/08/2020 Does the patient have a hearing impairment: No 12/08/2020 Does the patient have a visual impairment: Yes 12/08/2020 Does the patient have impaired ambulation: No 12/08/2020 Does the patient have an activity of daily living No (ADL) impairment: 12/08/2020 Does the patient have an instrumental activity of No daily living (IADL) impairment: Date of Assessment Cognitive Status Response 12/08/2020 Does the patient have a cognitive impairment: No documented as of this encounter Plan of Treatment Care Team Description Date Type Specialty Merle Mathis MD [address] [facility] [address] [place] [address] [phone] Meniere's disease of both ears 02/28/2021 Hospital Encounter Merle Mathis MD [address] [facility] [address] [place] [address] [phone] DECOMPRESSION ENDOLYMPHATIC SAC WITH ASHWIN NT 02/28/2021 Surgery documented as of this encounter Goals Goal Patient Associated Recent Progress Patient-Stat Aut hor Goal Type Problems ed? Remain independent Hospital On track (10/20/2020 Yes Giselle Enciso, 6:31 PM CDT) RN Note: "To get better and stay as healthy as possible, and be able to take care of myself" documented as of this encounter Visit Diagnoses Not on filedocumented in this encounter Additional Health Concerns Assessment Noted Time A fall risk assessment has been completed for the pat ient 12/08/2020 11:45 AM CDT PHQ-2 Depression Total Score: 0 12/08/2020 11:45 AM CDT documented as of this encounter
--- OUTSIDE RECORDS SUMMARY | 2021-01-07 19:10 | XMS REPORT | Encounter Summary ---
Author Author [facility] Organization [facility] Address Unknown Phone Unavailable Care Team Providers Care Liquid Compounder Name Role Phone Opal Serna RN Unavailable [...] Felisa House MD Unavailable Unavailable Mariann Aguirre COUNTRY MANAGER-CLOTH DRIER Unavailable Sanjiv Art MD PCP Reason for Visit * Reason Comments Other Encounter Details Care Team Description Date Type Department Merle Mathis MD [address] [facility] [address] [place] [address] [phone] Cassidy Segura, AUD [address] [place] [address] [phone] Sensorineural hearing loss, bilateral (P rimary Dx) 12/08/2020 Clinical Otolaryngology: Radha chapin [address], [address] [place] [address] Social History Date Tobacco Use Types Packs/Day [...] AM CDT Date Recorded COVID-19 Exposure Response 12/08/2020 11:01 AM CDT In the last month, [...] impairment: No documented as of this encounter Progress Notes * Cassidy Segura AUD - 12/08/2020 12:00 PM CDT Patient was seen for Walk CI Eval per Dr. Mathis. Wearing clinic aids she scored 72% at +5. Due to insurance she does not qualify. [place] medicaid does not pay for implants for adults. documented in this encounter Plan of Treatment Care Team Description Date Type Specialty Merle Mathis MD [address] [facility] [address] [place] [address] [phone] Meniere's disease of both ears 02/28/2021 Hospital Encounter Merle Mathis MD [address] [facility] [address] [place] [address] [phone] DECOMPRESSION ENDOLYMPHATIC SAC WITH ASHWIN NT 02/28/2021 [...] documented as of this encounter Visit Diagnoses Diagnosis Sensorineural hearing loss, bilateral - Primary Meniere's disease of both ears Meniere's disease, unspecified Vertigo Dizziness and giddiness Hearing loss, neural Sensorineural hearing loss, unspecified documented in this encounter Additional Health Concerns Assessment Noted Time A fall risk assessment has been completed for the pat ient 12/08/2020 11:45 AM CDT PHQ-2 Depression Total Score: 0 12/08/2020 11:45 AM CDT documented as of this encounter
--- OUTSIDE RECORDS SUMMARY | 2021-01-07 19:10 | XMS REPORT | Encounter Summary ---
Author Author [facility] Organization [facility] Address Unknown Phone Unavailable Care Team Providers Care Network Systems Integrator Name Role Phone Opal Serna RN Unavailable [...] MD Unavailable Felisa House MD Unavailable Unavailable WaMariann pearson DRAFTER (CAD) ELECTRONIC-STUDENT TRUCK DRIVER Unavailable Sanjiv Atr MD PCP Encounter Details Care Team Description Date Type Department Merle Mathis MD [address] [facility] [address] [place] [address] Meniere's disease of both ears (Primary Dx); Vertigo; Hearing loss, neural; Encounter for screening laboratory testing for COVID-19 virus in asymptomatic patient 12/16/2020 Prep for Case Operating Room: [facility] [address] [place] [address] Social History Date Tobacco Use Types Packs/Day [...] Date Type Specialty Merle Mathis MD [address] [facility] [address] [place] [address] [phone] Meniere's disease of both ears 02/28/2021 Hospital Encounter Merle Mathis MD [address] [facility] [address] [place] [address] [phone] DECOMPRESSION ENDOLYMPHATIC SAC WITH ASHWIN NT 02/28/2021 Surgery Order Schedule Name Type Priority Associated Diag noses Expected: 12/16/2020 (Approximate), Expi res: 12/16/2021 COVID-19 (SARS-COV-2) PCR Microbiology Routine Enco unter for screening laboratory testing for COVID-19 virus in asymptomatic patient documented as of this encounter Goals Goal Patient Associated Recent Progress Patient-Stat Aut hor Goal Type Problems ed? Remain independent Hospital On track (10/20/2020 Yes Giselle Enciso, 6:31 PM CDT) RN Note: "To get better and stay as healthy as possible, and be able to take care of myself" documented as of this encounter Visit Diagnoses Diagnosis Meniere's disease of both ears - Primar y Meniere's disease, unspecified Vertigo Dizziness and giddiness Hearing loss, neural Sensorineural hearing loss, unspecified Encounter for screening laboratory test ing for COVID-19 virus in asymptomatic patient Meniere's disease of both ears Meniere's disease, unspecified Vertigo Dizziness and giddiness Hearing loss, neural Sensorineural hearing loss, unspecified documented in this encounter Orders First Ordered Date Case Request Count Last Ordered Date CASE REQUEST 1 12/16/2020 documented in this encounter Additional Health Concerns Assessment Noted Time A fall risk assessment has been completed for the pat ient 12/08/2020 11:45 AM CDT PHQ-2 Depression Total Score: 0 12/08/2020 11:45 AM CDT documented as of this encounter
--- OUTSIDE RECORDS SUMMARY | 2021-01-07 19:10 | XMS REPORT | Encounter Summary ---
Author Author [facility] Organization [facility] Address Unknown Phone Unavailable Care Team Providers Care Tower Loader Operator Name Role Phone Opal Serna RN Unavailable [...] Felisa House MD Unavailable Unavailable Mariann Aguirre DOUGH BRAKER-LAP RUNNER Unavailable Sanjiv Art MD PCP Encounter Details Care Team Description Date Type Department 12/08/2020 Travel Social History Date Tobacco Use Types [...] Date Type Specialty Merle Mathis MD [address] [facility] [address] [place] [address] [phone] Meniere's disease of both ears 02/28/2021 Hospital Encounter Merle Mathis MD [address] [facility] [address] [place] [address] [phone] DECOMPRESSION ENDOLYMPHATIC SAC WITH ASHWIN NT 02/28/2021 [...]
--- OUTSIDE RECORDS SUMMARY | 2021-01-07 19:10 | XMS REPORT | Encounter Summary ---
Author Author [facility] Organization [facility] Address Unknown Phone Unavailable Care Team Providers Care Senior Catering Sales Manager Name Role Phone Opal Serna RN Unavailable [...] MD Unavailable Felisa House MD Unavailable Unavailable NjMariann pearson GEOTECHNICAL LABORATORY TECHNICIAN-DATABASE SPECIALIST Unavailable Sanjiv Art MD PCP Reason for Visit * Reason Comments Follow Up Encounter Details Care Team Description Date Type Department Merle Mathis MD [address] [facility] [address] [place] [address] [phone] Meniere's disease of both ears (Primary Dx); Hearing loss, neural; Dizziness 12/08/2020 Office Visit Otolaryngology: [facility] [address] [facility] [place] [address] Social History Date Tobacco Use [...] / COVID-19? documented as of this encounter Last Filed Vital Signs Reading Time Taken Comments Vital Sign 107/72 12/08/2020 11:44 AM CDT Blood Pressure 82 12/08/2020 11:44 AM CDT Pulse - - Temperature - - Respiratory Rate - - Oxygen Saturation - - Inhaled Oxygen Concentration 60.3 kg (133 lb) 12/08/2020 11:44 AM CDT Weight 152.4 cm (5') 12/08/2020 11:44 AM CDT Height 25.97 12/08/2020 11:44 AM CDT Body Mass Index documented in this encounter Functional Status Date of Assessment [...] as of this encounter Progress Notes * Merle Mathis MD - 12/08/2020 11:50 AM CDT Date of Service: 12/08/2020 Subjective: Krystal Ramirez (Kathy) is a 55 y.o. female. History of Present Illness Follow up to monitor hearing. She has had another fall since her last visit. Review of Systems Constitutional: Negative. HENT: Negative. Eyes: Negative. Respiratory: Negative. Cardiovascular: Negative. Gastrointestinal: Negative. Endocrine: Negative. Genitourinary: Negative. Musculoskeletal: Negative. Skin: Negative. Allergic/Immunologic: Negative. Neurological: Negative. Hematological: Negative. Psychiatric/Behavioral: Negative. Objective: acetaminophen (TYLENOL) 500 mg tablet Take 1,000 mg by mouth every 6 hours a s needed for Pain. albuterol 0.5% (PROVENTIL) 2.5 mg/0.5 mL nebulizer solution Inhale 2.5 mg so lution by nebulizer as directed every 6 hours as needed for Shortness of Breath or Wheezing. atorvastatin (LIPITOR) 40 mg tablet Take 80 mg by mouth daily. atorvastatin (LIPITOR) 80 mg tablet Take 80 mg by mouth daily. celecoxib (CELEBREX) 200 mg capsule Take 200 mg by mouth twice daily. cetirizine (ZYRTEC) 10 mg tablet Take 10 mg by mouth daily. cyanocobalamin 1,000 mcg tablet Take one tablet by mouth daily. cyclobenzaprine (FLEXERIL) 10 mg tablet Take one-half tablet by mouth three times daily as needed. diazePAM (VALIUM) 10 mg tablet Take 10 mg by mouth every 8 hours as needed f or Anxiety. diazePAM (VALIUM) 5 mg tablet Take one-half tablet to one tablet by mouth ev carmina 12 hours as needed. diclofenac sodium (SOLARAZE) 3 % gel Apply topically to affected area daily . duloxetine DR (CYMBALTA) 30 mg capsule Take two capsules by mouth daily. duloxetine DR (CYMBALTA) 60 mg capsule Take 60 mg by mouth daily. fluticasone (FLONASE) 50 mcg/actuation nasal spray Apply 1 spray to each nos tril as directed daily. Shake bottle gently before using. hydroCHLOROthiazide (HYDRODIURIL) 25 mg tablet Take one tablet by mouth ever y morning. HYDROcodone/acetaminophen (NORCO) 5/325 mg tablet Take 1 tablet by mouth tiny ry 6 hours as needed for Pain levothyroxine (SYNTHROID) 88 mcg tablet Take 88 mcg by mouth daily 30 minute s before breakfast. modafinil (PROVIGIL) 200 mg tablet Take 200 mg by mouth daily. montelukast (SINGULAIR) 10 mg tablet Take 10 mg by mouth at bedtime daily. ondansetron (ZOFRAN ODT) 4 mg rapid dissolve tablet Take 4 mg by mouth every 8 hours as needed for Nausea. promethazine (PHENERGAN) 25 mg rectal suppository Insert or Apply 1 Supposit ory to rectal area as directed every 8 hours as needed for Nausea. pseudoephedrine HCl (SUDAFED 12 HOUR PO) Take by mouth. spironolactone (ALDACTONE) 100 mg tablet Take 50 mg by mouth twice daily. Ta ke with food. spironolactone (ALDACTONE) 50 mg tablet Take 50 mg by mouth twice daily. Aaron e with food. traZODone (DESYREL) 100 mg tablet Take 100 mg by mouth at bedtime daily. Vitals: 12/08/20 1144 BP: 107/72 Pulse: 82 Weight: 60.3 kg (133 lb) Height: 152.4 cm (60") PainSc: Four Body mass index is 25.97 kg/m. Physical Exam A&Ox3 Healthy appearing; Normal speech No nystagmus VII intact, symmetric I personally reviewed and interpreted the audiogram: Pure tone audiogram: Stable Speech audiometry: reduction of SD compared to last audio Tympanometry: Nl AzBio 72% MDM: x Chronic with exacerbation; x 2 Chronic; _ 1 acute complicated; _ Loss of bodil y function _ Min 3 documents reviewed; x Independent review of of test X Decision for surgery; _ Medication management; _ Surgery with risk Assessment and Plan: 1) Right Meniere disease, active. Discussed options of SERC and endolymphatic s ac decompression. Wishes to move forward with surgery. 2) chronic dizziness-we will see how her ELS surgery does, she may need vestibul ar PT. 3) Asymmetric SNHL. 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 Cochlear implantation not recommend ed at this point in time. documented in this encounter Plan of Treatment Care Team Description Date Type Specialty Merle Mathis MD [address] [facility] [address] [place] [address] [phone] Meniere's disease of both ears 02/28/2021 Hospital Encounter Merle Mathis MD [address] [facility] [address] [place] [address] [phone] DECOMPRESSION ENDOLYMPHATIC SAC WITH ASHWIN NT 02/28/2021 Surgery documented as of this encounter Goals Goal Patient Associated Recent Progress Patient-Stat Aut hor Goal Type Problems ed? Remain independent Hospital On track (10/20/2020 Yes Fernie Giselle, 6:31 PM CDT) RN Note: "To get better and stay as healthy as possible, and be able to take care of myself" documented as of this encounter Visit Diagnoses Diagnosis Meniere's disease of both ears - Primar y Meniere's disease, unspecified Hearing loss, neural Sensorineural hearing loss, unspecified Dizziness Dizziness and giddiness Meniere's disease of both ears Meniere's disease, [...]
--- OUTSIDE RECORDS SUMMARY | 2021-01-07 19:10 | XMS REPORT | Encounter Summary ---
Author Author [facility] Organization [facility] Address Unknown Phone Unavailable Care Team Providers Care Steel Post Installer Supervisor Name Role Phone Opal Serna RN Unavailable [...] Felisa House MD Unavailable Unavailable Mariann Aguirre APRN-LIAISON ENGINEER Unavailable Sanjiv Art MD PCP Reason for Visit * Reason Comments Follow Up PAST TEST RESULTS * Consult, Test & Treat (Discharge Pending) Referred By Contact Referred To Contact Status Reason Specialty Diagnoses / Procedures Giselle Damon, TEXTILE SCREEN PRINTER-LIAISON ENGINEER [address] [facility] [address] [place] [address] Boo Ceron Jr., DO [address] [facility] [place] [address] Authorized Neurology Diagnoses Altered awareness, transient P rocedures APPOINTMENT REQUEST: NEUROLOGY Encounter Details Care Team Description Date Type Department Boo Ceron Jr., DO [address] [facility] [address] [phone] Idiopathic polyneuropathy (Primary Dx) 12/27/2020 Office Visit [facility]: [facility], [facility] [address] [facility] [address] [place] [address] Social History Date Tobacco Use Types Packs/Day [...] (98.1 F) 12/27/2020 11:12 AM CDT Temperature - - Respiratory Rate 97% 12/27/2020 11:12 AM CDT Oxygen Saturation - - Inhaled Oxygen Concentration 65.3 kg (144 lb) 12/27/2020 11:12 AM CDT Weight 172.7 cm (5' 8") 12/27/2020 11:12 AM CDT Height 21.9 12/27/2020 11:12 AM CDT Body Mass Index documented in [...] impairment: No documented as of this encounter Patient Instructions * Patient Instructions* Boo Ceron Jr., DO - 12/27/2020 11:15 AM CDT Call office or use [employer] to access results of ordered labs and for instruction s for results documented in this encounter Progress Notes * Boo Ceron Jr., DO - 12/27/2020 11:15 AM CDT Date of Service: 12/27/2020 Subjective: Krystal Ramirez is a 55 y.o. female. History of Present Illness I last saw her in November 2019. I was very suspicious for nonorganic somatofor m disorder. I did not suspect primary neurologic etiology for cognitive and beha vioral complaints. I recommended she follow-up with psychiatry and neuropsycholo gy. I diagnosed idiopathic sensorimotor peripheral neuropathy. She had transient alt ered awareness with suspected nonepileptic episodes and chronic anxiety disorder . She has a history of hydrocephalus that is stable with previous MOONER shunt and v entriculostomies. Mild cognitive impairment was thought from polypharmacy, encep halopathy from cerebral injury, sleep disorder and possible psychiatric contribu tion. She had both auditory and visual hallucinations with delusional behavior. Concer n for psychosis and recommended psychiatry follow-up. Labs CMP October 2020 benign, B12 in August 2019 was 270, syphilis antibody Sept2019 - I ordered lab panel last time in November but I do not see that it wa s ever done After her visit was over last time patient had one of her typical spells. Vital signs and blood sugar were normal. She became agitated thereafter and started st riking her head against the wall but remained awake and oriented and followed co tyson. I activated rapid response. She was transported by wheelchair to emergen cy department. She is supposed to follow-up with me in 6 months but did not do so. I ordered pr olonged video EEG. She was admitted to in October 2020. She had continuous video EEG monitoring d one at that time. Initial EEG showed diffuse beta activity due to pharmacologic effect of benzodiazepines. No clinical or electrographic seizure. 4-day long EEG was unremarkable. Unfortunately, none of her typical events were captured. She has had no tingling or numbness of feet. She has had dizziness and vertigo and follows w ENT. She was diagnosed with Meniere. Balance is off. She has meza d periods of falls. She does PT which has helped. She has done vestibular reha b. She has had no further spells of altered awareness. She has had no LOC. She de scribes the feeling of nausea and dizziness. She does not know if this is assoc iated with her spells of confusion. Headaches are controlled. She has had "crazy vision". She admits to diplopia. Cognitive issues have not changed. Short term memory is poor but no different. She forgets conversations. No changes or other neurologic concerns. Review of Systems Constitutional: Negative. HENT: Negative. Eyes: Negative. Respiratory: Negative. Cardiovascular: Negative. Gastrointestinal: Negative. Endocrine: Negative. Genitourinary: Negative. Musculoskeletal: Negative. Skin: Negative. Allergic/Immunologic: Negative. Neurological: Negative. Hematological: Negative. Psychiatric/Behavioral: Negative. Chief Complaint: Chief Complaint Patient presents with Follow Up PAST TEST RESULTS Past Medical History: Medical History: Diagnosis Date Anxiety Asthma takes albuterol on occasion, has not needed for a few months, never hospitalize d or intubated as a result. Diplopia Hydrocephalus (HCC) aqua ductal stenosis Hypothyroidism Christen's has not taken medication for years, unknown recent TSH IBS (irritable bowel syndrome) Migraines Personal history of colonic polyps S/P MOONER shunt Syncope and collapse 06/13/2010 Surgical History: Surgical History: Procedure Laterality Date VENTRICULOSTOMY 2009 HEMORRHOIDECTOMY 2012. ABDOMINAL EXPLORATION SURGERY Jan 2014 failed laparoscopic and open hysterectomy due to scar tissue HX HYSTERECTOMY 07/06/14 COLONOSCOPY N/A 04/30/2016 Performed by Stiven Thomas MD at [facility] ENDO APPENDECTOMY CARDIAC SURGERY "recorder placed and removed" CHOLECYSTECTOMY COLONOSCOPY COSMETIC SURGERY ECTOPIC SURGERY laparoscopy HX WISDOM TEETH EXTRACTION LAPAROSCOPY ectopic, lysis of adhesion, appendectomy, gall bladder SHUNT REVISION multiple brain shunts (10) Social History: Social History Tobacco Use Smoking status: Former Smoker Packs/day: 0.10 Years: 17.00 Pack years: 1.70 Types: Cigarettes Smokeless tobacco: Never Used Vaping Use Vaping Use: Some days Substance Use Topics Alcohol use: Yes Alcohol/week: 1.0 - 2.0 standard drinks Types: 1 - 2 Cans of beer per week Comment: 1-2 per month Drug use: Yes Types: Marijuana Family History: Family History Problem Relation Age of Onset High Cholesterol Mother Thyroid Disease Mother Other Mother Heart Disease Mother Heart Disease Father Cancer-Colon Father Cancer Father Heart Disease Maternal Grandmother Aneurysm Maternal Grandmother Heart Disease Maternal Grandfather Cancer-Colon Paternal Grandmother Stroke Paternal Grandmother Asthma Brother Seasonal Allergies Son Allergies: Allergies Allergen Reactions Levaquin [Levofloxacin] ANAPHYLAXIS Paprika SHORTNESS OF BREATH Codeine ITCHING Latex ITCHING Sulfa (Sulfonamide Antibiotics) ITCHING Objective: acetaminophen (TYLENOL) 500 mg tablet Take [...] mg by mouth at bedtime daily. Vitals: 12/27/20 1112 BP: 103/70 Pulse: 77 Temp: 36.7 C (98.1 F) SpO2: 97% Weight: 65.3 kg (144 lb) Height: 172.7 cm (68") PainSc: One Body mass index is 21.9 kg/m. No data recorded Is a controlled substance agreement on file? Not Applicable Physical Exam General: WG, exaggerated affect, functional exam, labile demeanor, attention addy ropriate, follows commands HEENT: NC/AT Cardiac: RRR without murmur Neck: supple Speech: fluent, mild dysarthria, no aphasia Mental status: Alert, oriented x 4, NAD CN: PERRL, EOMI without restriction or nystagmus, facial sensation symmetric (V1 -V3) to LT bilaterally, No facial droop or ptosis, palatal rise symmetric, shoul glenn shrug symmetric, tongue midline Strength: UEs:5/5 SA/EF/EE/WE/WF, 4+/4+ FA LEs:07/20- HF (left giveaway) 5/5 KE/DF/PF/EV/IV No involuntary movements, no tremor, no myoclonus, no convulsion Sensation:Pinprick symmetrically decreased below shins, symmetric in upper ext remities DTRs: 2/2 in BR/B/P, 1/1A, downgoing plantar reflexes bilaterally Coordination: normal bilateral FTN without dysmetria Gait: normal primary gait, mild tandem gait ataxia Assessment and Plan: 1. 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 Idiopathic sensorimotor polyneuropathy 3. Meniere's disease 4. Non-epileptic episodes -Transient alteration of awareness 5. Chronic anxiety disorder 6. Stable hydrocephalus with previous MOONER shunt and ventriculostomies 7. Mild cognitive impairment- ?combo polypharmacy, encephalopathy from cerebra l injury, sleep disorder psychiatric contribution 6. Auditory/visual hallucinations with delusional behavior Plan: 1. Vit B12, TSH, syphilis antibody, ESR, RF, vitamin B6, MMA, SIFE, HIV, fasting 2 hr glucose tolerance test, SPEP, CMP, CBC, TOSIN 2. FU psychiatry/psychology for psych comorbidities 3. No indication for epileptic treatment - no evidence for seizures. Suspect no nepileptic events - ?psychogenic 4. No neuro restriction driving. Instructed her to seek approval to drive from psychiatrist (nonepileptic disease and ENT - Menieres w dizziness 5. Suspect somatoform disorder. Probable symptom magnification. Underlying org anic disease comorbid. 6. She will call office and use [employer] for access to lab results. Will give in structions accordingly based on results. 7. RTC 1 year. If neurologically stable then, will DC to PCP and psychiatrist. documented in this encounter Plan of Treatment Care Team Description Date Type Specialty Merle Mathis MD [address] [facility] [address] [place] [address] [phone] Meniere's disease of both ears 02/28/2021 Hospital Encounter Merle Mathis MD [address] [facility] [address] [place] [address] [phone] DECOMPRESSION ENDOLYMPHATIC SAC WITH ASHWIN NT 02/28/2021 Surgery Order Schedule Name Type Priority Associated Diag noses Expected: 12/27/2020 (Approximate), Expi res: 12/28/2021 HIV 1& 2 AG-AB SCRN W Lab Routine Idiopath ic polyneuropathy REFLEX HIV 1 PCR QUANT Expected: 12/27/2020 (Approximate), Expi res: 12/28/2021 GLUCOSE, FASTING Lab Routine Idiopathic po lyneuropathy Expected: 12/27/2020 (Approximate), Expi res: 12/28/2021 GLUCOSE JOO-2 HR Lab Routine Idiopathic po lyneuropathy Expected: 12/27/2020 (Approximate), Expi res: 12/28/2021 GLUCOSE JOO-1 HR Lab Routine Idiopathic po lyneuropathy Expected: 12/27/2020 (Approximate), Expi res: 12/27/2021 ELECTROPHORESIS-SERUM Lab Routine Idiopath ic polyneuropathy PROTEIN Expected: 12/27/2020 (Approximate), Expi res: 12/28/2021 COMPREHENSIVE METABOLIC Lab Routine Idiopa thic polyneuropathy PANEL Expected: 12/27/2020 (Approximate), Expi res: 12/28/2021 CBC AND DIFF Lab Routine Idiopathic poly neuropathy Expected: 12/27/2020 (Approximate), Expi res: 12/28/2021 ANTI-NUCLEAR Lab Routine Idiopathic poly neuropathy ANTIBODY(TOSIN) Expected: 12/27/2020 (Approximate), Expi res: 12/28/2021 VITAMIN B12 Lab Routine Idiopathic poly neuropathy Expected: 12/27/2020 (Approximate), Expi res: 12/28/2021 TSH WITH FREE T4 REFLEX Lab Routine Idiopa thic polyneuropathy Expected: 12/27/2020 (Approximate), Expi res: 12/28/2021 SYPHILIS AB SCREEN Lab Routine Idiopathic polyneuropathy Expected: 12/27/2020 (Approximate), Expi res: 12/28/2021 SED RATE Lab Routine Idiopathic poly neuropathy Expected: 12/27/2020 (Approximate), Expi res: 12/28/2021 RHEUMATOID FACTOR (RF) Lab Routine Idiopat hic polyneuropathy Expected: 12/27/2020 (Approximate), Expi res: 12/28/2021 METHYLMALONIC ACID QUANT Lab Routine Idiop athic polyneuropathy Expected: 12/27/2020 (Approximate), Expi res: 12/28/2021 IMMUNOFIXATION, SERUM Lab Routine Idiopath ic polyneuropathy (IFES) Expected: 12/27/2020 (Approximate), Expi res: 12/28/2021 PYRIDOXAL 5 PHOSPHATE Lab Routine Idiopath ic polyneuropathy documented as of this encounter Goals Goal Patient Associated Recent Progress Patient-Stat Aut hor Goal Type Problems ed? Remain independent Hospital On track (10/20/2020 Yes Giselle Enciso, 6:31 PM CDT) RN Note: "To get better and stay as healthy as possible, and be able to take care of myself" documented as of this encounter Visit Diagnoses Diagnosis Idiopathic polyneuropathy - Primary Unspecified hereditary and idiopathic p eripheral neuropathy Meniere's disease of both ears Meniere's disease, [...]
--- OUTSIDE RECORDS SUMMARY | 2021-01-07 19:10 | XMS REPORT | Encounter Summary ---
Author Author [facility] Organization [facility] Address Unknown Phone Unavailable Care Team Providers Care Assembler Finger Buffs Name Role Phone Opal Serna RN Unavailable [...] MD Unavailable Felisa House MD Unavailable Unavailable CoMariann pearson PROJECT HIRE-AIR BOATSWAIN Unavailable Sanjiv Art MD PCP Reason for Visit * Reason Comments Hearing Testing Encounter Details Care Team Description Date Type Department Merle Mathis MD [address] [facility] [address] [place] [address] [phone] Nneka Nunes, AUD [address] [place] [address] [phone] Meniere's disease of right ear (Primary Dx) 12/08/2020 Clinical Otolaryngology: Radha chapin [facility] [address] [place] [phone] Social History Date Tobacco Use Types Packs/Day [...] Date Type Specialty Merle Mathis MD [address] [facility] [address] [place] [address] [phone] Meniere's disease of both ears 02/28/2021 Hospital Encounter Merle Mathis MD [address] [facility] [address] [place] [address] [phone] DECOMPRESSION ENDOLYMPHATIC SAC WITH ASHWIN NT 02/28/2021 Surgery documented as of this encounter Goals Goal Patient Associated Recent Progress Patient-Stat Aut hor Goal Type Problems ed? Remain independent Hospital On track (10/20/2020 Yes Giselle Enciso, 6:31 PM CDT) RN Note: "To get better and stay as healthy as possible, and be able to take care of myself" documented as of this encounter Procedures Comments Procedure Name Priority Date/Time Associated Diag nosis AUDIOMETRY WITH Routine 12/08/2020 Meniere's dise ase of TYMPANOMETRY right ear documented in this encounter Visit Diagnoses Diagnosis Meniere's disease of right ear - Primar y Meniere's disease, unspecified Meniere's disease of both ears Meniere's disease, unspecified Vertigo Dizziness and giddiness Hearing loss, neural Sensorineural hearing loss, unspecified documented in this encounter Orders First Ordered Date Procedures Count Last Ordered Date AUDIOMETRY WITH TYMPANOMETRY 1 documented in this encounter Additional Health Concerns Assessment Noted Time A fall risk assessment has been completed for the pat ient 12/08/2020 11:45 AM CDT PHQ-2 Depression Total Score: 0 12/08/2020 11:45 AM CDT documented as of this encounter
[2021-01-07 19:11] VITALS: BP 122/78
[2021-01-07] MEDS ORDERED: DIAZEPAM 5 MG (VALIUM) TABLET ONE (19:29)
[2021-01-07] MEDS ORDERED: DIAZEPAM 5 MG (VALIUM) TABLET PO ONE (19:30)
[2021-01-07] MEDS ORDERED: MECLIZINE 25 MG (ANTIVERT) TAB PO ONE (19:30)
[2021-01-07] MEDS ORDERED: NS IV 1000 ML 1,000 ML IV ONE ×2 (19:30)
[2021-01-07] MEDS ORDERED: methylPREDNISolone 125 MG (Solu-MEDROL) VIAL IM ONE (20:00)
== END 2021-01-07 19:58 | disposition home or self-care (01) ==
LOC: EDUNIT# 19:04 → ER FS 19:06
DX: R42 Dizziness and giddiness (principal); Z87.820 Personal history of traumatic brain injury; Z79.899 Other long term (current) drug therapy; Z98.2 Presence of cerebrospinal fluid drainage device

== ENCOUNTER → 2021-05-03 | Outpatient (CLI) | payer MEDICAID ==
--- NOTE | 2021-05-03 10:34 | Diagnostic Imaging Report ---
INDICATION: Left knee pain. COMPARISON: 08/05/2019. FINDINGS: Three views of the left knee demonstrate stable degenerative changes in all three compartments. There is no fracture, dislocation, or joint effusion. IMPRESSION: Stable degenerative joint disease. Dictated by: Dictated on workstation # [id number]
== END ==
LOC: RAD FS 09:27
PROVIDERS: ATTEND Nurse Practitioner
DX: M17.12 Unilateral primary osteoarthritis, left knee (principal)
CPT/HCPCS: 73562

== ENCOUNTER 2021-05-31 16:00 | Emergency (ER) | payer MEDICAID ==
[~2021-05-31] VITALS: Ht 172 cm; Wt 64.0 kg
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
[2021-05-31] MEDS ORDERED: KETOROLAC 30 MG/ML VIAL IM ONE (16:45)
[2021-05-31] MEDS ORDERED: CYCLOBENZAPRINE 10 MG (FLEXERIL) TAB PO SCH (16:45)
--- NOTE | 2021-05-31 17:14 | Diagnostic Imaging Report ---
INDICATION: Fall, with chest wall pain. TIME OF EXAM: 5:03 p.m. COMPARISON: No prior studies are available for comparison. FINDINGS: Tubing overlies the left chest. The heart size is normal. Lungs are clear. No infiltrates are seen. There is no effusion or pneumothorax. IMPRESSION: No acute cardiopulmonary process is detected. Dictated by: Dictated on workstation # [id number]
--- NOTE | 2021-05-31 17:15 | Diagnostic Imaging Report ---
INDICATION: Fall and left shoulder pain. TIME OF EXAM: 5:04 p.m. FINDINGS: Three views of the left shoulder were obtained. Glenohumeral and acromioclavicular alignment is normal. Acromiohumeral space is normal. No fracture or dislocation is identified. IMPRESSION: No acute abnormality is detected. Dictated by: Dictated on workstation # [id number]
[2021-05-31] MEDS ORDERED: LIDO700A45 TP (17:20)
[2021-05-31] MEDS ORDERED: CYCL5TAB PO (17:20)
[2021-05-31 17:23] VITALS: BP 124/68
== END 2021-05-31 17:24 | disposition home or self-care (01) ==
LOC: EDUNIT# 16:00 → ER FS 16:01
DX: M25.512 Pain in left shoulder (principal)
CPT/HCPCS: 71046; 73030

== ENCOUNTER 2021-08-12 20:07 | Emergency (ER) | payer MEDICAID ==
[~2021-08-12] VITALS: Ht 172 cm; Wt 162.0 kg
[~2021-08-12 20:07] MED LIST changes: +CYCL5TAB PO; +LIDO700A45 TP
[2021-08-12 20:27] LABS: BASOPHILS # (AUTO) 0.1 10^3/uL (0.0-0.1); BASOPHILS % (AUTO) 1 % (0-10); EOSINOPHILS # (AUTO) 0.3 10^3/uL (0.0-0.3); EOSINOPHILS % (AUTO) 3 % (0-10); HEMATOCRIT 37 % (35-52); HEMOGLOBIN 12.6 g/dL (11.5-16.0); LYMPHOCYTES # (AUTO) 4.3 10^3/uL (1.0-4.0); LYMPHOCYTES % (AUTO) 46 % (12-44); MEAN CORPUSCULAR HEMOGLOBIN 32 pg (25-34); MEAN CORPUSCULAR HGB CONC 35 g/dL (32-36); MEAN CORPUSCULAR VOLUME 94 fL (80-99); MEAN PLATELET VOLUME 9.7 fL (9.0-12.2); MONOCYTES # (AUTO) 0.7 10^3/uL (0.0-1.0); MONOCYTES % (AUTO) 7 % (0-12); NEUTROPHILS # (AUTO) 4.1 10^3/uL (1.8-7.8); NEUTROPHILS % (AUTO) 43 % (42-75); PLATELET COUNT 267 10^3/uL (130-400); WHITE BLOOD COUNT 9.4 10^3/uL (4.3-11.0)
[2021-08-12] MEDS ORDERED: NS IV 1000 ML 1,000 ML IV SCH (20:30)
[2021-08-12] MEDS ORDERED: LORazepam INJ 2 MG/ML (ATIVAN) VIAL IVP ONE (20:45)
[2021-08-12 20:50] LABS: ALBUMIN 4.2 GM/DL (3.2-4.5); BILIRUBIN,TOTAL 0.3 MG/DL (0.1-1.0); CALCIUM 9.6 MG/DL (8.5-10.1); CREATININE SERUM 1.11 MG/DL (0.60-1.30); POTASSIUM 3.1 MMOL/L (3.6-5.0); TOTAL PROTEIN 6.9 GM/DL (6.4-8.2)
[2021-08-12 21:28] LABS: BILIRUBIN,URINE NEGATIVE (NEGATIVE); CLARITY,URINE CLEAR; COLOR,URINE YELLOW; GLUCOSE, URINE (UA) NEGATIVE (NEGATIVE); KETONES,URINE TRACE (NEGATIVE); LEUKOCYTE ESTERASE ,URINE TRACE (NEGATIVE); NITRITE,URINE NEGATIVE (NEGATIVE); PROTEIN,URINE NEGATIVE (NEGATIVE)
[2021-08-12 21:32] LABS: BACTERIA,URINE FEW /HPF
[2021-08-12] MEDS ORDERED: KCL 20 MEQ TAB (K-DUR) PO ONE (21:45)
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
[2021-08-12] MEDS ORDERED: METH4TAB10 PO (21:51)
[2021-08-12] MEDS ORDERED: ONDA4TAB11 PO (21:51)
[2021-08-12] MEDS ORDERED: MECL-149 PO (21:51)
[2021-08-12 21:58] VITALS: BP 129/89
== END 2021-08-12 21:58 | disposition home or self-care (01) ==
LOC: EDUNIT# 20:07 → ER FS 20:08
DX: R42 Dizziness and giddiness (principal); F17.210 Nicotine dependence, cigarettes, uncomplicated; Z86.69 Personal history of other diseases of the nervous system and sense organs; Z79.899 Other long term (current) drug therapy
CPT/HCPCS: 36415; 80053; 81000; 85025; 87088; 99283

== ENCOUNTER 2021-11-16 19:09 | Emergency (ER) | payer MEDICAID ==
[~2021-11-16] VITALS: Ht 172.7 cm; Wt 66.3 kg
[~2021-11-16 19:09] MED LIST changes: +METH4TAB10 PO
[2021-11-16] MEDS ORDERED: IBUPROFEN 800 MG (MOTRIN) TAB PO STA (19:18)
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
[2021-11-16] MEDS ORDERED: MODA200T39 PO (19:26)
[2021-11-16] MEDS ORDERED: TRAZ-227 PO (19:26)
[2021-11-16] MEDS ORDERED: CETI10TA17 PO (19:26)
[2021-11-16] MEDS ORDERED: HYDR25TA4 PO (19:26)
[2021-11-16] MEDS ORDERED: ALBUTEROL (19:26)
[2021-11-16] MEDS ORDERED: MONT-40 PO (19:26)
[2021-11-16] MEDS ORDERED: CELE-63 PO (19:26)
[2021-11-16] MEDS ORDERED: LEVO100T7 PO (19:26)
[2021-11-16] MEDS ORDERED: DULO60CA59 PO (19:26)
[2021-11-16] MEDS ORDERED: DIAZ10TA3 PO (19:26)
[2021-11-16 19:50] LABS: BASOPHILS # (AUTO) 0.1 10^3/uL (0.0-0.1); BASOPHILS % (AUTO) 1 % (0-10); EOSINOPHILS # (AUTO) 0.2 10^3/uL (0.0-0.3); EOSINOPHILS % (AUTO) 3 % (0-10); HEMATOCRIT 39 % (35-52); HEMOGLOBIN 13.7 g/dL (11.5-16.0); LYMPHOCYTES # (AUTO) 2.8 10^3/uL (1.0-4.0); LYMPHOCYTES % (AUTO) 29 % (12-44); MEAN CORPUSCULAR HEMOGLOBIN 32 pg (25-34); MEAN CORPUSCULAR HGB CONC 35 g/dL (32-36); MEAN CORPUSCULAR VOLUME 90 fL (80-99); MEAN PLATELET VOLUME 9.2 fL (9.0-12.2); MONOCYTES # (AUTO) 0.7 10^3/uL (0.0-1.0); MONOCYTES % (AUTO) 7 % (0-12); NEUTROPHILS # (AUTO) 5.9 10^3/uL (1.8-7.8); NEUTROPHILS % (AUTO) 61 % (42-75); PLATELET COUNT 314 10^3/uL (130-400); WHITE BLOOD COUNT 9.7 10^3/uL (4.3-11.0)
[2021-11-16 20:11] LABS: ALANINE AMINOTRANSFERASE 21 U/L (0-55); ALBUMIN 4.7 GM/DL (3.2-4.5); ALKALINE PHOSPHATASE 123 U/L (40-136); BILIRUBIN,TOTAL 0.3 MG/DL (0.1-1.0); BUN/CREATININE RATIO 14; CALCIUM 9.7 MG/DL (8.5-10.1); CARBON DIOXIDE 23 MMOL/L (21-32); CHLORIDE 96 MMOL/L (98-107); CREATININE SERUM 0.86 MG/DL (0.60-1.30); GFR ESTIMATED 80; GLUCOSE 125 MG/DL (70-105); POTASSIUM 3.5 MMOL/L (3.6-5.0); SODIUM 133 MMOL/L (135-145); TOTAL PROTEIN 7.6 GM/DL (6.4-8.2)
--- NOTE | 2021-11-16 20:26 | Diagnostic Imaging Report ---
EXAMINATION: Left hand radiographs, 2 views. COMPARISON: None. HISTORY: 56-year-old female, left thumb pain. FINDINGS: There is no identified acute fracture. There is no identified subluxation or dislocation. The joint spaces are well preserved. There is no bone destruction. IMPRESSION: Unremarkable radiographs of the left hand. Dictated by: Dictated on workstation # [id number]
[2021-11-16] MEDS ORDERED: CEPHALEXIN 250 MG (KEFLEX) CAP PO STA (20:34)
[2021-11-16] MEDS ORDERED: CEPH500C PO (20:34)
[2021-11-16] MEDS ORDERED: ACHD5005 PO (20:47)
[2021-11-16 20:52] VITALS: BP 128/91
[2021-11-16 21:50] LABS: URIC ACID 4.2 MG/DL (2.6-7.2)
== END 2021-11-16 20:52 | disposition home or self-care (01) ==
LOC: EDUNIT# 19:09 → ER FS 19:10
DX: S63.642A Sprain of metacarpophalangeal joint of left thumb, initial encounter (principal); Z28.310 Unvaccinated for COVID-19; W54.8XXA Other contact with dog, initial encounter; Y92.009 Unspecified place in unspecified non-institutional (private) residence as the place of occurrence of the external cause
CPT/HCPCS: 36415; 73130; 80053; 84550; 85025; 86141

== ENCOUNTER → 2022-04-03 | Outpatient (CLI) | payer MEDICAID ==
[~2022-04-03] MED LIST changes: +ALBUTEROL; +CELE-63 PO; +CEPH500C PO; +CETI10TA17 PO; +DIAZ10TA3 PO; +DULO60CA59 PO; +HYDR25TA4 PO; +LEVO100T7 PO; +MODA200T39 PO; +MONT-40 PO; +TRAZ-227 PO
--- NOTE | 2022-04-03 10:40 | Diagnostic Imaging Report ---
INDICATION: PAIN CONTUSION TECHNIQUE: 3 views of the left knee CORRELATION STUDY: 05/03/2021 FINDINGS: The joint spaces are maintained. The articular surfaces are smooth and preserved. Mild to moderate chondrocalcinosis medial and lateral compartment. There is no acute bony abnormality. Soft tissues are unremarkable. IMPRESSION: 1. Negative for acute bony abnormality of the left knee. Dictated by: Dictated on workstation # [id number]
--- NOTE | 2022-04-03 11:21 | Diagnostic Imaging Report ---
INDICATION: Contusion, pain TECHNIQUE: Three views of the right shoulder CORRELATION STUDY: None FINDINGS: The glenohumeral and acromioclavicular alignment are maintained and unremarkable. There is no evidence for acute fracture or dislocation. The visualized soft tissues are unremarkable. IMPRESSION: 1. Negative for acute bony abnormality of the right shoulder. Dictated by: Dictated on workstation # [id number]
--- NOTE | 2022-04-03 11:34 | Diagnostic Imaging Report ---
INDICATION: Contusion, pain. TECHNIQUE: AP, Lateral and Swimmers imaging of the thoracic spine CORRELATION STUDY: 01/11/2020 FINDINGS: Mild rightward curvature of the mid lower thoracic spine with compensatory leftward curvature superior thoracic spine. Some loss of normal thoracic kyphosis. Thoracic vertebral body heights unchanged. An acute appearing compression deformity is not present. Mild areas of disc space narrowing. Shunt type tubing overlies the left hemithorax tip terminating via left upper quadrant. IMPRESSION: Generally stable examination thoracic spine demonstrates no acute abnormality. Dictated by: Dictated on workstation # [id number]
--- NOTE | 2022-04-03 11:34 | Diagnostic Imaging Report ---
INDICATION: Contusion, pain TECHNIQUE: AP, Lateral and Spot imaging of the lumbar spine CORRELATION STUDY: 07/16/2018 FINDINGS: Trace retrolisthesis of L2 on L3 L3 on L4, unchanged. Lumbar vertebral body heights are maintained. Unchanged minimal anterior wedging L1 vertebral body. Various degrees of disc space narrowing only mild severity most pronounced L1-L2 and L2-L3 level. Minimal leftward rotation lumbar spine. IMPRESSION: Stable lumbar spine demonstrates no acute abnormality. Dictated by: Dictated on workstation # [id number]
== END ==
LOC: RAD FS 09:53
PROVIDERS: ATTEND Nurse Practitioner
DX: S30.0XXA Contusion of lower back and pelvis, initial encounter (principal); S80.02XA Contusion of left knee, initial encounter; S40.011A Contusion of right shoulder, initial encounter; X58.XXXA Exposure to other specified factors, initial encounter
CPT/HCPCS: 72072; 72100; 73030; 73562

== ENCOUNTER 2022-05-09 13:34 | Emergency (ER) | payer MEDICAID ==
[~2022-05-09] VITALS: Ht 172.7 cm; Wt 67.5 kg
[2022-05-09 13:38] VITALS: BP 106/79
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
[2022-05-09] MEDS ORDERED: ONDA4TAB11 SL (20:02)
== END 2022-05-09 14:02 | disposition home or self-care (01) ==
LOC: EDUNIT# 13:34 → ER FS 13:36
DX: S51.812A Laceration without foreign body of left forearm, initial encounter (principal); F17.210 Nicotine dependence, cigarettes, uncomplicated; Z28.310 Unvaccinated for COVID-19; W22.8XXA Striking against or struck by other objects, initial encounter

== ENCOUNTER 2022-05-09 19:30 | Emergency (ER) | payer MEDICAID ==
[~2022-05-09] VITALS: Ht 172.7 cm; Wt 67.9 kg
[2022-05-09 19:37] VITALS: BP 118/73
[2022-05-09] MEDS ORDERED: FAMOTIDINE 20 MG (PEPCID) TABLET PO STA (19:58)
[2022-05-09] MEDS ORDERED: ONDANSETRON 4 MG (ZOFRAN) ORAL DISSOLVE TAB PO STA (19:58)
[2022-05-09] MEDS ORDERED: ONDA4TAB11 SL (20:02)
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
== END 2022-05-09 20:11 | disposition home or self-care (01) ==
LOC: EDUNIT# 19:30 → ER FS 19:30
DX: S51.812D Laceration without foreign body of left forearm, subsequent encounter (principal); R11.0 Nausea; R10.13 Epigastric pain; Z28.310 Unvaccinated for COVID-19; X58.XXXD Exposure to other specified factors, subsequent encounter
CPT/HCPCS: 99283

== ENCOUNTER 2022-05-26 21:24 | Emergency (ER) | payer MEDICAID ==
[~2022-05-26 21:24] MED LIST changes: +ONDA4TAB11 SL
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
--- NOTE | 2022-05-26 21:49 | Diagnostic Imaging Report ---
EXAMINATION: Right elbow 3 or more views. HISTORY: Elbow pain. COMPARISON: None available. FINDINGS: No fracture is seen. There is a small ossific density projecting over the elbow joint only on one view. 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 No effusion. IMPRESSION: Mild elbow osteoarthritis with possible small loose body in the joint. Dictated by: Dictated on workstation # [id number]
[2022-05-26 22:04] VITALS: BP 119/87
[2022-05-26] MEDS ORDERED: ACHD5005 PO (22:04)
== END 2022-05-26 22:07 | disposition home or self-care (01) ==
LOC: EDUNIT# 21:24 → ER FS 21:28
DX: M25.521 Pain in right elbow (principal); M79.89 Other specified soft tissue disorders; Z88.5 Allergy status to narcotic agent; Z28.310 Unvaccinated for COVID-19
CPT/HCPCS: 73080

== ENCOUNTER 2022-06-16 12:12 | Emergency (ER) | payer MEDICAID ==
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
[2022-06-16] MEDS ORDERED: NS IV 1000 ML 1,000 ML IV STA (12:26)
[2022-06-16] MEDS ORDERED: KETOROLAC 30 MG/ML VIAL IVP STA (12:26)
[2022-06-16 12:32] LABS: BILIRUBIN,URINE NEGATIVE (NEGATIVE); CLARITY,URINE CLEAR; COLOR,URINE YELLOW; GLUCOSE, URINE (UA) NEGATIVE (NEGATIVE); KETONES,URINE NEGATIVE (NEGATIVE); LEUKOCYTE ESTERASE ,URINE NEGATIVE (NEGATIVE); NITRITE,URINE NEGATIVE (NEGATIVE); PROTEIN,URINE NEGATIVE (NEGATIVE)
[2022-06-16 12:36] LABS: BASOPHILS # (AUTO) 0.1 10^3/uL (0.0-0.1); BASOPHILS % (AUTO) 1 % (0-10); EOSINOPHILS # (AUTO) 0.2 10^3/uL (0.0-0.3); EOSINOPHILS % (AUTO) 2 % (0-10); HEMATOCRIT 40 % (35-52); HEMOGLOBIN 14.3 g/dL (11.5-16.0); LYMPHOCYTES # (AUTO) 3.5 10^3/uL (1.0-4.0); LYMPHOCYTES % (AUTO) 35 % (12-44); MEAN CORPUSCULAR HEMOGLOBIN 32 pg (25-34); MEAN CORPUSCULAR HGB CONC 36 g/dL (32-36); MEAN CORPUSCULAR VOLUME 89 fL (80-99); MEAN PLATELET VOLUME 8.9 fL (9.0-12.2); MONOCYTES # (AUTO) 0.8 10^3/uL (0.0-1.0); MONOCYTES % (AUTO) 7 % (0-12); NEUTROPHILS # (AUTO) 5.7 10^3/uL (1.8-7.8); NEUTROPHILS % (AUTO) 56 % (42-75); PLATELET COUNT 407 10^3/uL (130-400); WHITE BLOOD COUNT 10.2 10^3/uL (4.3-11.0)
[2022-06-16 12:38] LABS: BACTERIA,URINE LARGE /HPF
[2022-06-16 12:52] LABS: ALANINE AMINOTRANSFERASE 29 U/L (0-55); ALBUMIN 4.5 GM/DL (3.2-4.5); ALKALINE PHOSPHATASE 136 U/L (40-136); BILIRUBIN,TOTAL 0.4 MG/DL (0.1-1.0); BUN/CREATININE RATIO 14; CALCIUM 9.7 MG/DL (8.5-10.1); CARBON DIOXIDE 27 MMOL/L (21-32); CHLORIDE 95 MMOL/L (98-107); CREATININE SERUM 0.85 MG/DL (0.60-1.30); GFR ESTIMATED 81; GLUCOSE 127 MG/DL (70-105); POTASSIUM 3.1 MMOL/L (3.6-5.0); SODIUM 134 MMOL/L (135-145); TOTAL PROTEIN 7.4 GM/DL (6.4-8.2)
[2022-06-16] MEDS ORDERED: ORPHENADRINE 60 MG/2 ML (NORFLEX) AMP (ED ONLY) IV ONE (13:00)
[2022-06-16] MEDS ORDERED: NITR100C PO (13:03)
[2022-06-16] MEDS ORDERED: CYCL10TA25 PO (13:03)
[2022-06-16 13:33] VITALS: BP 135/89
== END 2022-06-16 13:32 | disposition home or self-care (01) ==
LOC: EDUNIT# 12:12 → ER FS 12:14
DX: S29.012A Strain of muscle and tendon of back wall of thorax, initial encounter (principal); S33.5XXA Sprain of ligaments of lumbar spine, initial encounter; N30.00 Acute cystitis without hematuria; Z79.52 Long term (current) use of systemic steroids; Z79.899 Other long term (current) drug therapy; Z28.310 Unvaccinated for COVID-19; Z88.2 Allergy status to sulfonamides; Z88.1 Allergy status to other antibiotic agents; X58.XXXA Exposure to other specified factors, initial encounter
CPT/HCPCS: 36415; 80053; 81000; 85025; 86141; 87088

== ENCOUNTER → 2022-06-18 | Outpatient (CLI) | payer MEDICAID ==
[~2022-06-18] MED LIST changes: +CYCL10TA25 PO; +NITR100C PO
--- NOTE | 2022-06-18 15:22 | Diagnostic Imaging Report ---
PROCEDURE: CT urinary tract, rule out kidney stone. TECHNIQUE: Multiple contiguous axial images were obtained through the abdomen and pelvis without the use of intravenous contrast. Auto Exposure Controls were utilized during the CT exam to meet ALARA standards for radiation dose reduction. INDICATION: Kidney pain, abdominal pain. COMPARISON: 08/05/2019. FINDINGS: Minimal bibasilar scarring and/or atelectasis. Cholecystectomy. The unenhanced liver and spleen are unremarkable. The adrenal glands are unremarkable. The unenhanced pancreas is unremarkable. The unenhanced bilateral kidneys are unremarkable. Mild vascular calcifications within the abdominal aorta and its branch vessels without aneurysmal dilatation of the abdominal aorta. The urinary bladder is unremarkable. The uterus is not visualized, likely surgically absent. There is a moderate amount of stool throughout the colon. No evidence of bowel obstruction or pneumatosis. No significant inflammatory stranding within the right lower quadrant. No significant adenopathy, free air, or free fluid within the abdomen or pelvis. No acute osseous abnormality. Mild scattered osseous degenerative changes. Ventriculoperitoneal shunt catheter is noted terminating within the upper abdomen without adjacent focal fluid collection. IMPRESSION: Moderate amount of stool throughout the colon which may relate to constipation. Additional findings as described above without acute abnormality. Dictated by: Dictated on workstation # [id number]
== END ==
LOC: RAD FS 12:49
PROVIDERS: ATTEND Family Medicine
DX: N23 Unspecified renal colic (principal)
CPT/HCPCS: 74176

== ENCOUNTER → 2022-06-18 | Outpatient (CLI) | payer MEDICAID ==
--- NOTE | 2022-06-18 12:53 | Diagnostic Imaging Report ---
INDICATION: Back pain. 2 views were obtained. Comparison is made with prior exam of 04/03/2022. FINDINGS: The alignment of lumbar spine is normal. The vertebral body heights are well maintained. No spondylolysis or spondylolisthesis. No fractures are identified. There is mild degenerative change. IMPRESSION: Mild lumbar spondylosis otherwise unremarkable. Dictated by: Dictated on workstation # [id number]
== END ==
LOC: RAD FS 09:41
PROVIDERS: ATTEND Nurse Practitioner
DX: M47.816 Spondylosis without myelopathy or radiculopathy, lumbar region (principal)
CPT/HCPCS: 72100

== ENCOUNTER 2022-06-22 15:40 | Emergency (ER) | payer MEDICAID ==
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
[2022-06-22 16:11] LABS: BILIRUBIN,URINE NEGATIVE (NEGATIVE); COLOR,URINE YELLOW; GLUCOSE, URINE (UA) NEGATIVE (NEGATIVE); KETONES,URINE NEGATIVE (NEGATIVE); LEUKOCYTE ESTERASE ,URINE NEGATIVE (NEGATIVE); NITRITE,URINE NEGATIVE (NEGATIVE); PH,URINE 6.5 (5-9); PROTEIN,URINE NEGATIVE (NEGATIVE)
[2022-06-22 16:19] LABS: BACTERIA,URINE LARGE /HPF; CALCIUM OXALATE CRYSTALS,UR MODERATE /LPF; CLARITY,URINE CLOUDY
[2022-06-22 16:24] LABS: AMPHETAMINE SCREEN, URINE NEGATIVE (NEGATIVE); BARBITURATE SCREEN URINE NEGATIVE (NEGATIVE); BENZODIAZEPINES SCREEN URINE POSITIVE (NEGATIVE); CANNABINOID SCREEN, URINE POSITIVE (NEGATIVE); COCAINE SCREEN URINE NEGATIVE (NEGATIVE); METHADONE STAT NEGATIVE (NEGATIVE); OPIATE SCREEN URINE POSITIVE (NEGATIVE); OXYCODONE STAT NEGATIVE (NEGATIVE); PROPOXYPHENE STAT NEGATIVE (NEGATIVE); TRICYCLIC ANTIDEPRESSANTS SCRE NEGATIVE (NEGATIVE)
[2022-06-22] MEDS ORDERED: fentaNYL INJ 100 MCG/2 ML AMP IM STA (17:36)
[2022-06-22] MEDS ORDERED: HYDR-3820 PO (17:41)
[2022-06-22 18:10] VITALS: BP 152/92
== END 2022-06-22 18:10 | disposition home or self-care (01) ==
LOC: EDUNIT# 15:40 → ER FS 15:42
DX: M54.50 Low back pain, unspecified (principal); K56.0 Paralytic ileus; Z79.891 Long term (current) use of opiate analgesic
CPT/HCPCS: 80306; 81000; 87088; 99284